=== PATIENT | female | born 1940 | race Caucasian/White ===

== ENCOUNTER 2022-02-19 00:57 | Emergency (ER) | payer MEDICARE, SELFPAY ==
[2022-02-19 01:22] VITALS: BP 150/94; PULSE 62; O2SAT 95; BMI 25.0
[2022-02-19 03:31] LABS: Ethanol 186 mg/dL
--- NOTE | 2022-02-19 03:35 | ED.ALCOHOL ---
HPI - Alcohol General Chief Complaint: ETOH/Substance Use Stated Complaint: ETOH Time Seen by Provider: 02/19/22 02:17 Source: patient Mode of arrival: EMS History of Present Illness HPI narrative: 81-year-old female without significant past medical history presents via EMS after she was at her daughter's and had a couple glasses of wine and apparently expressed some feelings of depression. She denies ever being on medication for depression, seen for or depression, admitted for depression, or hurting herself. She currently denies any symptoms vital ideation. She states that she does feel lonely as her life is little uncertain right now. Patient describes how she moved from [place] to [place] to be closer to her daughter and grandkids, but she rarely sees them anymore as there has been a separation between her daughter and her landlord. Patient states that her landlord moved away with his son and now she is alone in the house on the 1st floor with her dog and rarely sees her daughter. Patient states she does not know what her housing situation will be in the future, and when she is asked her daughter her daughter is unsure of what will be happening as well. Patient denies any current medical complaints and is interested in speaking with someone from the care team to help in identifying outpatient resources for group involvement. Related Data Allergies Allergy/AdvReac Type Severity Reaction Status Date / Time No Known Allergies Allergy Verified 02/19/22 02:19 Review of Systems Review of Systems: Pertinent positives and negatives as stated in HPI 10 point review of systems is otherwise negative. PMFSH Past Medical History Source: nursing notes reviewed Social History Social History Advance Directives: No Physical Exam ED Vital Signs: BMI result Body Mass Index 25.0 VITAL SIGNS: Reviewed. GENERAL: Well developed, well nourished, in no acute distress, smells like alcohol HEAD: Normocephalic/atraumatic EYES: PERRLA, EOMI EARS: Ext canals without abnormality OROPHARYNX: no oral lesions noted, posterior pharynx clear LUNGS: Normal breath sounds. CARDIOVASCULAR: Regular rate and rhythm without noted murmurs, no JVD or lower extremity edema. ABDOMEN: Soft, non-tender, non-distended with bowel sounds. MUSCULOSKELETAL: No tenderness, deformities, or effusions noted on gross inspection. EXTREMITIES: No cyanosis, clubbing or edema. SKIN: Inspection of the skin reveals no rashes NEUROLOGIC: Alert and oriented x 4. Strength and sensation to light touch were grossly intact x 4. PSYCH: Appears sad Course Course Course Narrative: 81-year-old female with history and clinical presentation consistent with mild depression but no suicidal ideation regarding current life situations. She is intoxicated with a BAL-186. She is requesting to speak with the care team and is otherwise cleared to do so. Reevaluation(s) Reevaluation #1: Patient placed in physician observation because the patient needed more time for evaluation by the care team. At the time observation was started the patient's vital signs were stable, patient is alert and oriented, neuro: Nonfocal, CV RRR, lungs clear Time: 03:56 MDM - Alcohol Lab Data Labs: Lab Results 02/19/22 Range/Units 03:02 Ethyl Alcohol 186 mg/dL Discharge Plan Discharge Clinical Impression: Alcoholic intoxication, Depression Patient Disposition: Still a Patient
[2022-02-19 04:00] VITALS: BP 120/57; PULSE 60; RESP 14; O2SAT 96
--- NOTE | 2022-02-19 05:06 | PC.NURSE ---
I assumed nursing care of Mona upon her arrival to [address] [place] [address]. She remains alert, oriented x 3, calm and cooperative. She is resting in [address] and ahs requested to remain in the ED until she can speak with a member of the care team. We will continue to monitor Mona.
[2022-02-19 08:57] VITALS: BP 190/83; PULSE 82; RESP 18; TEMP 36.8; O2SAT 97
[2022-02-19 10:00] VITALS: RESP 16
[2022-02-19 10:53] LABS: Appearance Urine CLEAR; Color Urine YELLOW; Glucose Urine UA NEG (NEG); Leukocyte Esterase Urine NEG (NEG); Nitrite Urine NEG (NEG); PH 5.5 (5.0-8.0); Specific Gravity - Urine >= 1.030 (1.005-1.025); UACC Culture Trigger NO; Urine Blood TRACE (NEG); Urine Ketones NEG (NEG); Urine Protein NEG (NEG-TRACE)
[2022-02-19 11:10] LABS: Bacteria Urine TRACE /LPF; RBC Urine 0-2 /HPF (0); Squamous Epithelial Cell Urine 1+ /LPF; WBC Urine 0 /HPF (0-4)
[2022-02-19 15:38] VITALS: BP 180/90; PULSE 89; RESP 17; O2SAT 97
[2022-02-19 15:39] VITALS: TEMP 36.1
--- NOTE | 2022-02-19 15:43 | PC.NURSE ---
Patient awaiting Care Team consult, spoke with Saba who will review chart and come speak with patient.
--- NOTE | 2022-02-19 16:05 | MHC.CARE ---
CARE team consult received for 81 year old female who presented to the ED early this morning endorsing symptoms of depression secondary to ongoing life stressors. She was also intoxicated with a BAL of 186. This publicity writer met with the pt in the main ED 18H. She presented with dysthymic mood and congruent affect. She denied SI/HI/AVH and reported that she feels better than she did when she arrived to the hospital, and that being in the hospital for a period of time gave her the opportunity to think about the aspects of her life that she is processing or in the process of changing. This publicity writer discussed the possibility of working with a therapist for a short period of time to support her through the transitions, which she is agreeable to. Pt is currently looking into moving back to [place], as she had moved to [place] to be closer to her daughter and it has not been what she expected and is hoping to move back to where she had previously been established. This publicity writer provided the pt with information for two counseling agencies in the [facility] area and the pt was given a business card for [facility] crisis. No further assessment or intervention is needed at this time.
--- NOTE | 2022-02-19 17:56 | PC.NURSE ---
Patient left ER around 1630, awaiting provider to close chart
== END 2022-02-19 16:30 | disposition left against medical advice (07) ==
PROVIDERS: Emergency Provider Student in an Organized Health Care Education/Training Program
DX: F10.129 Alcohol abuse with intoxication, unspecified (principal); Y90.6 Blood alcohol level of 120-199 mg/100 ml; F32.A Depression, unspecified
CPT/HCPCS: 36415; 81001; 82077; 99284

== ENCOUNTER 2022-03-07 02:44 | Emergency (ER) | payer MEDICARE, SELFPAY ==
--- NOTE | ~2022-03-07 | CT_ITS ---
EXAMINATION: CT HEAD WITHOUT CONTRAST CLINICAL INFORMATION: Confusion COMPARISON: None TECHNIQUE: Contiguous axial imaging was performed from the skull base to vertex without intravenous administration of contrast. This CT examination was performed using dose optimization techniques as appropriate, variously including the following: *Automated exposure control *Adjustment of mA and/or kV according to patient size (this includes techniques or standardized protocols for targeted exams where dose is matched to indication/reason for exam; i.e. extremities or head) *Use of iterative reconstruction technique DLP: 665 mGy-cm FINDINGS: There is no evidence of acute intracranial hemorrhage or territorial infarction. No abnormal mass effect or midline shift is seen. [place] to white matter differentiation is well preserved. No extra-axial fluid collections are identified. The ventricles are normal in size. Mild volume loss is noted. The osseous structures and soft tissues are normal. The mastoid air cells and visualized portions of the paranasal sinuses are well aerated. CT/CT head/brain wo con IMPRESSION: No acute intracranial pathology.
[2022-03-07 03:44] VITALS: BP 169/80; PULSE 95; RESP 16; O2SAT 98; BMI 25.8
--- NOTE | 2022-03-07 04:26 | ED_ITS ---
HPI - Psych General Chief Complaint: Psychiatric Symptoms Stated Complaint: ETOH/SI/SECTION 12 Time Seen by Provider: 03/07/22 04:04 Source: patient and EMS Mode of arrival: EMS History of Present Illness HPI Narrative: 81-year-old female is brought in by EMS with police department after they were called by the daughter requesting that patient be evaluated for suicidal ideation. Patient denies suicidal ideation but does endorse that she is depressed. I evaluated this patient at her last admission and she was discharged home after care team saw her. Patient does admit to being somewhat forgetful, but primarily states that her relationship with her daughter is not great and that she feels lonely most of the time. Related Data Allergies Allergy/AdvReac Type Severity Reaction Status Date / Time No Known Allergies Allergy Verified 02/19/22 02:19 Review of Systems Review of Systems: Pertinent positives and negatives as stated in HPI 10 point review of systems is otherwise negative. PMFSH Past Medical History Source: nursing notes reviewed Social History Social History Alcohol intake: current Patient Tobacco Use Status: Former Tobacco user Use of substances other than those prescribed or required for medical reasons: Unknown Advance Directives: No Advance Directives Information Provided: Yes Physical Exam Vital Signs: Vital Signs: Last Vital Signs Pulse 95 03/07/22 03:44 Resp 16 03/07/22 03:44 BP 169/80 H 03/07/22 03:44 Pulse Ox 98 03/07/22 03:44 BMI result Body Mass Index 25.8 VITAL SIGNS: Reviewed. GENERAL: Well developed, well nourished, in no acute distress. HEAD: Normocephalic/atraumatic EYES: PERRLA, EOMI EARS: Ext canals without abnormality OROPHARYNX: no oral lesions noted, posterior pharynx clear LUNGS: Normal breath sounds. No adventitious sounds or accessory muscle use. SpO2<98> CARDIOVASCULAR: Regular rate and rhythm without noted murmurs ABDOMEN: Soft, non-tender, non-distended with bowel sounds. MUSCULOSKELETAL: No tenderness, deformities, or effusions noted on gross in spection. EXTREMITIES: No cyanosis, clubbing or edema. SKIN: Inspection of the skin reveals no rashes NEUROLOGIC: Alert and oriented to President but had difficulty with month and year. Strength and sensation to light touch were grossly intact x 4. PSYCH: Depressed affect Course Course Course Narrative: 81-year-old female with history and clinical presentation suggestive of possible onset of mild dementia, although difficult to entirely assess as we have attempted multiple times to contact the daughter without success. Although patient is noted to have a positive ethanol level she articulates well, but does not remember the fact that we met approximately 2 weeks ago. She has no compla ints to suggest infection, anemia. Will obtain a CT scan of her head and discussed with the patient the reason for this, and she states that she understands. She endorses some depression but denies wanting to kill herself. She continues to states that she does not know what is going to happen in the future. Although I think the patient needs to be evaluated by the crisis team, she clearly would benefit from case management involvement to verify patient's current living conditions to include length of tenancy (patient continues to be concerned that she may not be able to live at her current address). Reevaluation(s) Reevaluation #1: Patient placed in physician observation because the patient needed more time for evaluation by the behavioral team and assistance from case management in determining daughter's primary concerns and how stable patient's current living conditions are. At the time observation was started the patient's vital signs were stable, patient is alert and oriented, neuro: Nonfocal, CV RRR, lungs clear Time: 06:42 MDM - Psych Lab Data Result diagrams: 03/07/22 05:04 03/07/22 05:02 Labs: Lab Results 03/07/22 03/07/22 03/07/22 Range/Units 05:02 05:02 05:03 WBC (4.8-10.8) X10*3/uL RBC (4.20-5.50) X10*6/uL Hgb (12.0-16.0) g/dl Hct (37.0-47.0) % MCV (80.0-98.0) fL MCH (27.0-33.0) pg MCHC (31.0-35.0) g/dl RDW (11.0-16.0) % Plt Count (160-400) X10*3/uL MPV (9.4-12.3) fL Immature Gran % (Auto) (0.0-0.4) % Neut % (Auto) (45-73) % Lymph % (Auto) (20-40) % [place] % (Auto) (2-11) % Eos % (Auto) (0-4) % Baso % (Auto) (0-2) % Lymph # (Auto) (1.2-4.9) X10*3/uL [place] # (Auto) (0.1-1.2) X10*3/uL Eos # (Auto) (0.0-0.4) X10*3/uL Baso # (Auto) (0.0-0.2) X10*3/uL Abs Immat Gran (auto) (0.00-0.03) X10*3/uL Absolute Neuts (auto) (2.0-8.3) x10*3/uL Absolute Nucleated RBC (0.0-0.012) X10*3/uL Nucleated RBC % (auto) (0.0-0.2) /100WBC Sodium 139 (135-145) mmol/L Potassium 4.0 (3.3-5.1) mmol/L Chloride 104 (96-108) mmol/L Carbon Dioxide 23 (22-29) mmol/L Anion Gap 16 (12-20) BUN 13 (9-16) mg/dL Creatinine 0.94 (0.5-1.4) mg/dL Estim Creat Clear Calc 49.5 Estimated GFR 57 Random Glucose 93 (60-115) mg/dL Calcium 9.1 (8.4-10.2) mg/dL Total Bilirubin 0.3 (0.0-1.0) mg/dL AST 21 (5-31) U/L ALT 22 (0-31) U/L Alkaline Phosphatase 84 (39-117) U/L Total Protein 7.0 (6.5-8.0) g/dL Albumin 3.8 (3.5-5.0) g/dL Urine Color Urine Appearance Urine pH (5.0-8.0) Ur Specific [place] (1.005-1.025) Urine Protein (NEG-TRACE) MG/DL Urine Glucose (UA) (NEG) MG/DL Urine Ketones (NEG) MG/DL Urine Blood (NEG) Urine Nitrite (NEG) Ur Leukocyte Esterase (NEG) Urine Opiates Screen (Not Detect) Urine Fentanyl Screen (Not Detect) Ur Barbiturates Screen (Not Detect) Ur Phencyclidine Scrn (Not Detect) Ur Amphetamines Screen (Not Detect) U Benzodiazepines Scrn (Not Detect) Urine Cocaine Screen (Not Detect) U Marijuana (THC) Screen (Not Detect) Ethyl Alcohol 165 mg/dL COVID-19 (SEVERO) Negative (Negative) COVID-19 Clin Com See Note 03/07/22 03/07/22 03/07/22 Range/Units 05:04 05:07 05:07 WBC 6.1 (4.8-10.8) X10*3/uL RBC 4.33 (4.20-5.50) X10*6/uL Hgb 13.7 (12.0-16.0) g/dl Hct 41.2 (37.0-47.0) % MCV 95.2 (80.0-98.0) fL MCH 31.6 (27.0-33.0) pg MCHC 33.3 (31.0-35.0) g/dl RDW 13.6 (11.0-16.0) % Plt Count 192 (160-400) X10*3/uL MPV 9.4 (9.4-12.3) fL Immature Gran % (Auto) 0.3 (0.0-0.4) % Neut % (Auto) 47.2 (45-73) % Lymph % (Auto) 41.0 H (20-40) % [place] % (Auto) 8.2 (2-11) % Eos % (Auto) 2.6 (0-4) % Baso % (Auto) 0.7 (0-2) % Lymph # (Auto) 2.5 (1.2-4.9) X10*3/uL [place] # (Auto) 0.5 (0.1-1.2) X10*3/uL Eos # (Auto) 0.2 (0.0-0.4) X10*3/uL Baso # (Auto) 0.0 (0.0-0.2) X10*3/uL Abs Immat Gran (auto) 0.02 (0.00-0.03) X10*3/uL Absolute Neuts (auto) 2.9 (2.0-8.3) x10*3/uL Absolute Nucleated RBC 0.000 (0.0-0.012) X10*3/uL Nucleated RBC % (auto) 0.0 (0.0-0.2) /100WBC Sodium (135-145) mmol/L Potassium (3.3-5.1) mmol/L Chloride (96-108) mmol/L Carbon Dioxide (22-29) mmol/L Anion Gap (12-20) BUN (9-16) mg/dL Creatinine (0.5-1.4) mg/dL Estim Creat Clear Calc Estimated GFR Random Glucose (60-115) mg/dL Calcium (8.4-10.2) mg/dL Total Bilirubin (0.0-1.0) mg/dL AST (5-31) U/L ALT (0-31) U/L Alkaline Phosphatase (39-117) U/L Total Protein (6.5-8.0) g/dL Albumin (3.5-5.0) g/dL Urine Color STRAW Urine Appearance CLEAR Urine pH 6.0 (5.0-8.0) Ur Specific [place] <= 1.005 (1.005-1.025) Urine Protein NEG (NEG-TRACE) MG/DL Urine Glucose (UA) NEG (NEG) MG/DL Urine Ketones NEG (NEG) MG/DL Urine Blood NEG (NEG) Urine Nitrite NEG (NEG) Ur Leukocyte Esterase NEG (NEG) Urine Opiates Screen Not Detected (Not Detect) Urine Fentanyl Screen Not Detected (Not Detect) Ur Barbiturates Screen Not Detected (Not Detect) Ur Phencyclidine Scrn Not Detected (Not Detect) Ur Amphetamines Screen Not Detected (Not Detect) U Benzodiazepines Scrn Not Detected (Not Detect) Urine Cocaine Screen Not Detected (Not Detect) U Marijuana (THC) Screen Not Detected (Not Detect) Ethyl Alcohol mg/dL COVID-19 (SEVERO) (Negative) COVID-19 Clin Com Discharge Plan Discharge Clinical Impression: Depression, Alcohol intoxication, Memory changes Patient Disposition: Still a Patient
--- NOTE | 2022-03-07 04:37 | PC.NURSE ---
Addendum entered by Priscila Kelly 03/07/22 04:43: This RN contacting Burt DOCKERY to obtain more information about the 911 call. Per Burt Phillips, daughter called 911 for pt. CFD giving this RN a different number for daughter (Shara) [phone]. This RN leaving daughter a message. aware. Original Note: This RN contacting daughter via contact information listed in chart. Daughter called multiple times but phone line constantly busy. aware.
--- NOTE | 2022-03-07 04:55 | PC.NURSE ---
I assumed nursing care of Mona upon her arrival to bed 8 after she presented via EMS and PD for evaluation of suicidal ideations, per EMS. Immediately Mona denies having suicidal ideations. She informed me that she's depressed and my daughter is the one concerned about suicide. She is reluctant to elaborate more on this with me, but insists that is not suicidal, has no plan, has never attempted suicide, and is also not homicidal. She is alert, oriented x 3, calm and cooperative. She makes eye contact with staff. She denies chest pain. She denies difficulty breathing. There is no cyanosis, respirations are non-labored, RR is WNL and room air sat's are WNL. No nausea. No vomiting. She is taking PO fluids without difficulty. On arrival Mona was changed into hospital attire and searched by security with female MHT at bedside to assist. fllowing this the female MHT remained at the bedside to provided 1:1 observation for this pt. Mona is aware that she is currently awaiting a crisis eval and verbalizes an understanding of this.
[2022-03-07 05:08] LABS: Basophils Percent Auto 0.7 % (0-2); Eosinophils Absolute Auto 0.2 X10*3/uL (0.0-0.4); Eosinophils Percent Auto 2.6 % (0-4); Hematocrit 41.2 % (37.0-47.0); Hemoglobin 13.7 g/dl (12.0-16.0); Imm Gran Abs Auto 0.02 X10*3/uL (0.00-0.03); Imm Gran Pct Auto 0.3 % (0.0-0.4); Lymphocytes Absolute Auto 2.5 X10*3/uL (1.2-4.9); MANUAL DIFF FLAG NO; Mean Corpuscular HGB Conc 33.3 g/dl (31.0-35.0); Mean Corpuscular Hemoglobin 31.6 pg (27.0-33.0); Mean Corpuscular Volume 95.2 fL (80.0-98.0); Mean Platelet Volume 9.4 fL (9.4-12.3); Monocytes Absolute Auto 0.5 X10*3/uL (0.1-1.2); Monocytes Percent Auto 8.2 % (2-11); Neutrophils Absolute Auto 2.9 x10*3/uL (2.0-8.3); Neutrophils Percent Auto 47.2 % (45-73); Platelet Count 192 X10*3/uL (160-400); Red Blood Count 4.33 X10*6/uL (4.20-5.50); Red Cell Distribution Width 13.6 % (11.0-16.0); White Blood Count 6.1 X10*3/uL (4.8-10.8)
[2022-03-07 05:13] LABS: Appearance Urine CLEAR; Color Urine STRAW; Glucose Urine UA NEG (NEG); Leukocyte Esterase Urine NEG (NEG); Nitrite Urine NEG (NEG); Specific Gravity - Urine <= 1.005 (1.005-1.025); Urine Blood NEG (NEG); Urine Ketones NEG (NEG); Urine Protein NEG (NEG-TRACE)
[2022-03-07 05:22] LABS: Ethanol 165 mg/dL
[2022-03-07 05:22] LABS: COVID-19 Test Negative (Negative)
[2022-03-07 05:26] LABS: Alanine Aminotransferase 22 U/L (0-31); Albumin Level 3.8 g/dL (3.5-5.0); Alkaline Phosphatase 84 U/L (39-117); Anion Gap 16 (12-20); Aspartate Amino Transferase 21 U/L (5-31); Bilirubin Total 0.3 mg/dL (0.0-1.0); Blood Urea Nitrogen 13 mg/dL (9-16); Calcium 9.1 mg/dL (8.4-10.2); Carbon Dioxide 23 mmol/L (22-29); Chloride 104 mmol/L (96-108); Creatinine Clr Calc Pharmacy 49.5; Estimated Glomerular Filt Rate 57; Glucose Random 93 mg/dL (60-115); Sodium 139 mmol/L (135-145)
[2022-03-07 05:29] LABS: Amphetamine Screen Urine Not Detected (Not Detect); Barbiturates, Urine Not Detected (Not Detect); Benzodiazepines Screen Urine Not Detected (Not Detect); Cannabinoid Screen Urine Not Detected (Not Detect); Cocaine Screen Urine Not Detected (Not Detect); Fentanyl, urine Not Detected (Not Detect); Opiate Screen Urine Not Detected (Not Detect); Phencyclidine Screen Urine Not Detected (Not Detect)
--- NOTE | 2022-03-07 07:47 | PC.NURSE ---
smart sheet done to [facility]
--- NOTE | 2022-03-07 07:47 | MHC.CM.ED ---
Patient currrently in ER. Received case management consult overnight. Patient also has [facility] crisis eval. Will defer to [facility] at this time. Case management will re-consult if needed.
[2022-03-07 09:47] VITALS: BP 156/75; PULSE 78; RESP 18; O2SAT 96
--- NOTE | 2022-03-07 09:53 | PC.NURSE ---
pt sleeping but easily arousable, respirations even and unlabored, reports no pain, vs stable pt states that her daughter brought her to the ed because the daughter was concern that the pt might hurt herself, pt reports that she would not hurt herself but that she is feeling sad, pt also states that she moved closer to her daughter and is not happy with her new living situation and is having some life stresses going on
--- NOTE | 2022-03-07 10:09 | PHA.MEDREC ---
Pharmacy Consult ? Medication Reconciliation Pharmacy has completed the medication reconciliation. Patient reports taking quinapril. The only medication in the claim history was quinapril-HCTZ but it was last filled in April 2021. Sandi Bhatt, AmadorD
--- NOTE | 2022-03-07 10:23 | PC.NURSE ---
sharifa from care team at bedside speaking to the pt
--- NOTE | 2022-03-07 12:08 | PC.NURSE ---
attempting to d/c the pt home but pt is unable to find her keys to the house
[2022-03-07 12:22] VITALS: BP 199/93; PULSE 71; RESP 18; O2SAT 97
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
--- NOTE | 2022-03-07 13:08 | PC.NURSE ---
spoke with izzy the granddaughter she is on her way to garbage pick up worker the pt
[2022-03-07 13:17] VITALS: BP 164/83; PULSE 72; RESP 18; TEMP 36.6; O2SAT 97
--- NOTE | 2022-03-08 15:15 | MHC.CARE ---
CARE Team makes several attempts to call pt for follow up. Phone rings busy each time.
== END 2022-03-07 13:20 | disposition home or self-care (01) ==
PROVIDERS: Emergency Provider Student in an Organized Health Care Education/Training Program
DX: R45.851 Suicidal ideations (principal); F32.A Depression, unspecified; F10.920 Alcohol use, unspecified with intoxication, uncomplicated; Y90.6 Blood alcohol level of 120-199 mg/100 ml; R41.3 Other amnesia; Z20.822 Contact with and (suspected) exposure to COVID-19
CPT/HCPCS: 36415; 70450; 80053; 80307; 81003; 82077; 85025; 87635; 99284

== ENCOUNTER 2022-04-16 13:07 | Inpatient (IN) | payer MEDICARE, SELFPAY ==
--- NOTE | ~2022-04-16 | XR_ITS ---
EXAMINATION: LEFT HAND AND LEFT WRIST. CLINICAL INFORMATION: Status post dog bite 3 days ago. COMPARISON: None TECHNIQUE: 3 views. FINDINGS: There is no soft tissue abrasion, gas or foreign body seen along the first interspace where a marker has been placed. No bony abnormality. No fracture. There is loss of first carpometacarpal joint space with periarticular spurring and subchondral cystic changes consistent with degenerative arthritis. Mild loss of PIP and DIP joints space with periapical spurring seen in all digits. No visible acute fracture or dislocation.. XR/XR hand wrist LT IMPRESSION: No evidence of soft tissue abrasion, gas or radiopaque foreign body in between the first and second digit where marker has been placed. Mild degenerative changes first carpometacarpal joint, PIP and DIP joints. .
[2022-04-16 13:29] VITALS: BP 154/67; PULSE 78; RESP 16; TEMP 36.6; O2SAT 98; BMI 28.1
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
--- NOTE | 2022-04-16 14:14 | ED.SKABFB ---
HPI - Skin/Abscess/Foreign Bdy General Chief complaint: Skin/Abscess/Foreign Body Stated complaint: dog bite Time Seen by Provider: 04/16/22 13:41 Source: patient and family Mode of arrival: ambulatory Limitations: other (Memory impairment) History of Present Illness HPI narrative: 81-year-old female who has been here in the past for alcohol intoxication, depression with SI thoughts who has a past medical history of memory impairment possible dementia although not diagnosed from a neurologist at this time and hypertension not on any medications due to daughters at bedside report her blood pressure is within normal limits presenting to the ED with daughters at bedside with complaints of a dog bite that occurred 3 days ago from 1 of her daughters dogs who is up-to-date on all immunizations. Apparently the patient was seen yesterday at an urgent care and given 1 dose of IM Rocephin and her tetanus was updated and started on p.o. Augmentin. She reports that she did not start the p.o. Augmentin until this morning due to she was given the IM Rocephin yesterday in the urgent care. They also marked the cellulitis and explained to her and the daughters that if the redness spread past the line that they have marked yesterday that she should go to emergency department for further evaluation treatment. Patient reports that the redness is spreading past the line. They deny any fevers or chills or any worsening pain or any drainage from the site or inability to bend the finger/hand where the bite is. They deny any other symptoms complaints or concerns at this time. MD complaint: other (dog bite) Onset (ago): day(s) (3) Tetanus up to date: yes Location: L hand Severity: mild Quality: aching Pain Consistency: constant Relieving factors: none Exacerbating factors: palpation and movement (bending at the 2nd and 3rd knuckles ) Context: other (daughter's dog ) Associated symptoms: denies other symptoms Treatments prior to arrival: other (was given tetanus shot yesterday, 1 g of Rocephin IM I urgent care and took 1 dose of 875 mg of Augmentin this morning) Related Data Home Medications Medication Instructions Recorded Confirmed quinapril 20 1 tab PO DAILY 03/07/22 04/16/22 mg-hydrochlorothiazide 25 mg tablet Allergies Allergy/AdvReac Type Severity Reaction Status Date / Time No Known Allergies Allergy Verified 04/16/22 13:33 Review of Systems Review of Systems: Constitutional : No Fever, No Chills, Cardiovascular : No Chest Pain, No SOB Respiratory : No Dyspnea Gastrointestinal : No abdominal pain Musculoskeletal : No Joint Swelling Skin : positive two puncture wounds + surrounding erythema to left hand, No skin laceration, No Foreign bodies, No rash Neuro : No Weakness, No Numbness/tingling Psych : No SI/HI/thoughts of self injury Yes all other systems are reviewed and are negative [facility] Past Medical History Attestation statement: The following information was validated with the patient. Source: old records reviewed, obtained from family and nursing notes reviewed Medical History Depression EtOH dependence Hypertension Memory impairment Prediabetes Family History Family History Father EtOH dependence Mother CAD (coronary artery disease) Social History Social History Alcohol intake: current Patient Tobacco Use Status: Former Tobacco user Advance Directives: Yes Advance Directives Information Provided: No Advance Directives on File: No Physical Exam Vital Signs: Vital Signs: Last Vital Signs Temp 97.8 F 04/16/22 13:29 Pulse 78 04/16/22 13:29 Resp 16 04/16/22 13:29 BP 154/67 H 04/16/22 13:29 Pulse Ox 98 04/16/22 13:29 O2 Del Method 04/16/22 13:29 BMI result Body Mass Index 28.1 vital signs have been reviewed as normal and appeared to be correct. Blood pressure 154/67. Heart rate normal. Respiration rate normal. Temperature normal. Oxygen saturation normal. Appearance: Alert. Oriented X3. No acute distress. Head: Normal external exam. Normocephalic. Atraumatic. Eyes: PERRLA. EOMI. Conjunctiva and sclera normal. Eyelids normal. ENT: Pharynx normal. Uvula midline. Moist mucous membranes. No lesions/ulcerations or masses noted on the tongue. Normal voice. Neck: Normal inspection. Neck supple. FROM. No adenopathy. No meningeal signs. CVS: Normal heart rate and rhythm. Heart sound normal. Pulses normal throughout. No murmurs/rales/gallops. Respiratory: No respiratory distress. Painless inspiration. Breath sounds normal. No wheezes/rales/rhonchi noted. No accessory muscle usage noted or decreased air movement noted. Abdomen: Soft and nontender. Bowel sounds normal in all 4 quadrants. No distention noted. No organomegaly noted. No visible injury noted. Back: Full range of motion noted. Skin: Skin warm and dry. Normal skin color. Normal skin turgor. No additional rashes/lesions/lacerations noted. Extremities: To left hand at the dorsal aspect at the mid to distal aspect of the hand patient has a puncture wound with mild soft tissue swelling and tenderness palpation right above the MCP joint. She reports pain with palpation on the MCP joint of the 2/3 digits. She does not have pain on the palmar aspect of the fingers and no tenderness palpation on the flexor tendon of the left hand fingers. Not consistent with tenosynovitis. She cannot fully flex the 2nd digit/index finger due to pain at the MCP per the patient. She does have some spreading cellulitis/streaking to the left wrist/forearm right below the joint of the elbow left-sided. No fluctuance or purulent drainage or foreign bodies noted at this time. Patient is also noted to have a puncture wound to the palmar aspect of the left hand between the 2nd and 3rd MCPs. No streaking/fluctuance or purulent drainage or foreign bodies noted at this time. Otherwise all other extremities exhibit normal range of motion nontender. Neuro: Oriented X 3. No motor deficit. No sensory deficit. Reflexes normal. Normal steady gait. No focal neuro deficits noted. CN's II-XII intact bilaterally? Vascular: + radial pulses/+ 2 distal pedal pulses/+2 dorsalis pedis b/l. Normal cap refill. No cyanosis noted to upper extremity nails and lower extremity toes nails. Course Course Course Narrative: 14pm - 81-year-old female presenting to the ED with complaints of a dog bite that occurred 3 days ago from one of her daughters dogs who is up-to-date on all immunizations patient was seen at the urgent care yesterday given 1 g of Rocephin IM her tetanus was updated and sent home on Augmentin took 1 dose of 875 mg of Augmentin this morning and due to spreading redness past the line that they marked at the urgent care yesterday patient came here for further evaluation treatment with her daughters at bedside. She denies any worsening symptoms or any fevers/chills or inability to bend the fingers or severe pain with bending of the fingers. Plan: I discussed this case with TEODORA Espinoza from [facility]opedics and [facility] vitals and pictures and she reports that this is not consistent with tenosynovitis although she reported that the patient should be admitted to the hospitalist team for a spreading cellulitis for IV antibiotics and they will consult on her on the inpatient basis. Therefore at this time will obtain labs, blood cultures, lactic acid and an x-ray of left hand. Provide a L of IV fluids with IV Zosyn and plan to admit for cellulitis of the left hand from a dog bite. Patient with family at bedside understand agree this plan. Reevaluation(s) Reevaluation #1: - labs returned ESR 25. Random glucose 162. Although patient denies being a diabetic therefore this is elevated for the patient. CRP 5.78. Otherwise all other labs are within normal limits. Patient negative for COVID. - left hand x-ray negative for any acute processes. - therefore at this time will admit for IV antibiotics for spreading cellulitis not consistent with tenosynovitis confirm with TEODORA Espinoza from Orthopedics who instructed to admit the patient for IV antibiotics and warm soaks and they will consult with the patient while she is admitted. Patient with family at bedside understand agree this plan. Time: 15:54 MDM - Skin/Abscess/Foreign Bdy Medical Records Attestation: I reviewed the patient's medical records. Lab Data Attestation: I reviewed the patient's lab results. Result diagrams: 04/16/22 14:17 04/16/22 14:17 Labs: Lab Results 04/16/22 04/16/22 04/16/22 Range/Units 14:17 14:17 14:17 WBC 7.0 (4.8-10.8) X10*3/uL RBC 4.58 (4.20-5.50) X10*6/uL Hgb 14.5 (12.0-16.0) g/dl Hct 42.7 (37.0-47.0) % MCV 93.2 (80.0-98.0) fL MCH 31.7 (27.0-33.0) pg MCHC 34.0 (31.0-35.0) g/dl RDW 12.6 (11.0-16.0) % Plt Count 188 (160-400) X10*3/uL MPV 10.0 (9.4-12.3) fL Immature Gran % (Auto) 0.4 (0.0-0.4) % Neut % (Auto) 68.0 (45-73) % Lymph % (Auto) 21.1 (20-40) % [place] % (Auto) 8.8 (2-11) % Eos % (Auto) 1.1 (0-4) % Baso % (Auto) 0.6 (0-2) % Lymph # (Auto) 1.5 (1.2-4.9) X10*3/uL [place] # (Auto) 0.6 (0.1-1.2) X10*3/uL Eos # (Auto) 0.1 (0.0-0.4) X10*3/uL Baso # (Auto) 0.0 (0.0-0.2) X10*3/uL Abs Immat Gran (auto) 0.03 (0.00-0.03) X10*3/uL Absolute Neuts (auto) 4.7 (2.0-8.3) x10*3/uL Absolute Nucleated RBC 0.000 (0.0-0.012) X10*3/uL Nucleated RBC % (auto) 0.0 (0.0-0.2) /100WBC ESR (0-20) MM/HR Sodium 138 (135-145) mmol/L Potassium 3.6 (3.3-5.1) mmol/L Chloride 104 (96-108) mmol/L Carbon Dioxide 25 (22-29) mmol/L Anion Gap 13 (12-20) BUN 14 (9-16) mg/dL Creatinine 0.93 (0.5-1.4) mg/dL Estim Creat Clear Calc 53.9 Estimated GFR 58 Random Glucose 162 H (60-115) mg/dL Estimat Average Glucose mg/dL Hemoglobin A1c % % Lactic Acid 1.1 (0.5-2.0) mmol/L Calcium 8.6 (8.4-10.2) mg/dL Magnesium 1.7 (1.6-2.6) mg/dL Total Bilirubin 0.5 (0.0-1.0) mg/dL AST 14 (5-31) U/L ALT 15 (0-31) U/L Alkaline Phosphatase 67 D (39-117) U/L C-Reactive Protein 5.87 H (< or = 0.50) mg/dL Total Protein 6.8 (6.5-8.0) g/dL Albumin 3.9 (3.5-5.0) g/dL COVID-19 ([facility]) (Negative) COVID-19 Clin Com 04/16/22 04/16/22 04/16/22 Range/Units 14:17 14:17 15:09 WBC (4.8-10.8) X10*3/uL RBC (4.20-5.50) X10*6/uL Hgb (12.0-16.0) g/dl Hct (37.0-47.0) % MCV (80.0-98.0) fL MCH (27.0-33.0) pg MCHC (31.0-35.0) g/dl RDW (11.0-16.0) % Plt Count (160-400) X10*3/uL MPV (9.4-12.3) fL Immature Gran % (Auto) (0.0-0.4) % Neut % (Auto) (45-73) % Lymph % (Auto) (20-40) % [place] % (Auto) (2-11) % Eos % (Auto) (0-4) % Baso % (Auto) (0-2) % Lymph # (Auto) (1.2-4.9) X10*3/uL [place] # (Auto) (0.1-1.2) X10*3/uL Eos # (Auto) (0.0-0.4) X10*3/uL Baso # (Auto) (0.0-0.2) X10*3/uL Abs Immat Gran (auto) (0.00-0.03) X10*3/uL Absolute Neuts (auto) (2.0-8.3) x10*3/uL Absolute Nucleated RBC (0.0-0.012) X10*3/uL Nucleated RBC % (auto) (0.0-0.2) /100WBC ESR 25 H (0-20) MM/HR Sodium (135-145) mmol/L Potassium (3.3-5.1) mmol/L Chloride (96-108) mmol/L Carbon Dioxide (22-29) mmol/L Anion Gap (12-20) BUN (9-16) mg/dL Creatinine (0.5-1.4) mg/dL Estim Creat Clear Calc Estimated GFR Random Glucose (60-115) mg/dL Estimat Average Glucose 117 mg/dL Hemoglobin A1c % 5.7 % Lactic Acid (0.5-2.0) mmol/L Calcium (8.4-10.2) mg/dL Magnesium (1.6-2.6) mg/dL Total Bilirubin (0.0-1.0) mg/dL AST (5-31) U/L ALT (0-31) U/L Alkaline Phosphatase (39-117) U/L C-Reactive Protein (< or = 0.50) mg/dL Total Protein (6.5-8.0) g/dL Albumin (3.5-5.0) g/dL COVID-19 ([facility]) Negative (Negative) COVID-19 Clin Com See Note Imaging Data Left hand/wrist x-ray: Attestation: I personally reviewed and interpreted this imaging study as follows: Radiologist's impression: FINDINGS: There is no soft tissue abrasion, gas or foreign body seen along the first interspace where a marker has been placed. No bony abnormality. No fracture. There is loss of first carpometacarpal joint space with periarticular spurring and subchondral cystic changes consistent with degenerative arthritis. Mild loss of PIP and DIP joints space with periapical spurring seen in all digits. No visible acute fracture or dislocation.. ? XR/XR hand wrist LT IMPRESSION: No evidence of soft tissue abrasion, gas or radiopaque foreign body in between the first and second digit where marker has been placed. ? Mild degenerative changes first carpometacarpal joint, PIP and DIP joints. Critical Care Time Critical Care Time Critical Care Time: Yes Total Critical Care Time: 60 Attestation: I personally attest to this time spent taking care of the patient Discharge Plan Discharge Clinical Impression: Dog bite of left hand, Cellulitis of hand, left Patient Disposition: Admitted As Inpatient
[2022-04-16 14:23] LABS: MANUAL DIFF FLAG NO
[2022-04-16 14:24] LABS: Basophils Percent Auto 0.6 % (0-2); Eosinophils Absolute Auto 0.1 X10*3/uL (0.0-0.4); Eosinophils Percent Auto 1.1 % (0-4); Hematocrit 42.7 % (37.0-47.0); Hemoglobin 14.5 g/dl (12.0-16.0); Imm Gran Abs Auto 0.03 X10*3/uL (0.00-0.03); Imm Gran Pct Auto 0.4 % (0.0-0.4); Lymphocytes Absolute Auto 1.5 X10*3/uL (1.2-4.9); Lymphocytes Percent Auto 21.1 % (20-40); Mean Corpuscular Hemoglobin 31.7 pg (27.0-33.0); Mean Corpuscular Volume 93.2 fL (80.0-98.0); Monocytes Absolute Auto 0.6 X10*3/uL (0.1-1.2); Monocytes Percent Auto 8.8 % (2-11); Neutrophils Absolute Auto 4.7 x10*3/uL (2.0-8.3); Platelet Count 188 X10*3/uL (160-400); Red Blood Count 4.58 X10*6/uL (4.20-5.50); Red Cell Distribution Width 12.6 % (11.0-16.0)
[2022-04-16] MEDS: 0.9 % Sodium Chloride 1,000 ML 999 ML IVCONT (14:28)
[2022-04-16] MEDS: Piperacillin Sodium/Tazobactam 2.25 GM in 0.9 % Sodium Chloride 50 ML IV (14:30)
[2022-04-16 14:33] LABS: Lactic Acid 1.1 mmol/L (0.5-2.0)
[2022-04-16 14:42] LABS: Alanine Aminotransferase 15 U/L (0-31); Albumin Level 3.9 g/dL (3.5-5.0); Alkaline Phosphatase 67 U/L (39-117); Anion Gap 13 (12-20); Aspartate Amino Transferase 14 U/L (5-31); Bilirubin Total 0.5 mg/dL (0.0-1.0); Blood Urea Nitrogen 14 mg/dL (9-16); Calcium 8.6 mg/dL (8.4-10.2); Carbon Dioxide 25 mmol/L (22-29); Chloride 104 mmol/L (96-108); Creatinine Clr Calc Pharmacy 53.9; Estimated Glomerular Filt Rate 58; Glucose Random 162 mg/dL (60-115); Magnesium 1.7 mg/dL (1.6-2.6); Potassium 3.6 mmol/L (3.3-5.1); Sodium 138 mmol/L (135-145); Total Protein 6.8 g/dL (6.5-8.0)
[2022-04-16 14:55] LABS: C Reactive Protein 5.87 mg/dL (< or = 0.50)
--- NOTE | 2022-04-16 15:14 | PHA.MEDREC ---
Pharmacy Consult ? Medication Reconciliation Pharmacy has completed the medication reconciliation.
[2022-04-16 15:31] LABS: Erythrocyte Sedimentation Rate 25 MM/HR (0-20)
[2022-04-16 15:35] LABS: COVID-19 Test Negative (Negative)
[2022-04-16 16:03] LABS: Estimated Average Glucose 117 mg/dL; Hemoglobin A1c % 5.7 %
--- NOTE | 2022-04-16 16:09 | PM.IMHP ---
History of Present Illness Date of Service: 04/16/22 Chief Complaint: dog bite 81-year-old female with past medical history of alcohol dependence, depression, prediabetes, presented with left upper extremity pain swelling and erythema. Patient had a dog bite 3 days prior to presentation. Dog is vaccinated. Was seen at urgent care 1 day prior to presentation and given 1 dose IM ceftriaxone and p.o. Augmentin which she did not start yet. Patient now coming to the ER for worsening swelling, erythema spreading past line drawn at urgent care, difficulty closing fist, denies fevers, chills, chest pain. In ED x-ray unremarkable, no signs of sepsis. Given IV Zosyn. was seen by Orthopedics who recommended admission for IV antibiotics and warm soaks. Review of Systems Review of Systems: Constitutional: Denies fever, denies Chills Eyes: denies blurry vision ENT: denies sore throat CVS: denies chest pain Respiratory: Denies dyspnea GI: no abdominal pain : denies dysuria MSK: denies neck pain Skin: denies rash Neuro: denies specific motor weakness Psych: denies suicidal ideation Endocrine: denies heat/cold intolerance Hematologic: denies easy bleeding Allergy: denies hives [facility] Medical History Depression EtOH dependence Hypertension Memory impairment Prediabetes Family History Father EtOH dependence Mother CAD (coronary artery disease) Social History Alcohol intake: current Patient Tobacco Use Status: Former Tobacco user Advance Directives: Yes Advance Directives Information Provided: No Advance Directives on File: No Meds Allergies Allergy/AdvReac Type Severity Reaction Status Date / Time No Known Allergies Allergy Verified 04/16/22 13:33 Active Medications: Current Medications Hydrochlorothiazide (Hydrochlorothiazide 25 Mg Tablet) 25 mg PO DAILY [facility] Ampicillin Sodium/Sulbactam (Sodium 3 gm/ Sodium Chloride) 100 mls @ 200 mls/hr IV Q8H [facility] Lisinopril (Lisinopril 20 Mg Tablet) 20 mg PO DAILY [facility] Pharmacy Consult (Consult Rx Perform Med Rec) 1 each MISCELLANE ONCE PRN PRN Reason: Consult order Home Medications Medication Instructions Recorded Confirmed Last Taken Type quinapril 20 1 tab PO DAILY 03/07/22 04/16/22 04/16/22 History mg-hydrochlorothiazide 25 mg tablet Physical Exam Vital Signs and Narrative: Vital Signs: Last Vital Signs Temp 97.8 F 04/16/22 13:29 Pulse 78 04/16/22 13:29 Resp 16 04/16/22 13:29 BP 154/67 H 04/16/22 13:29 Pulse Ox 98 04/16/22 13:29 O2 Del Method 04/16/22 13:29 BMI result Body Mass Index 28.1 General: no acute distress HEENT: atraumatic Neck: normal to visual inspection CVS: S1, S2, RRR Resp: CTA bilateral Chest: non tender GI: soft, non tender, non distended : no CVA tenderness Skin: Puncture wounds on left hand, dorsal and palmar, around 2nd and 3rd mcp area. associated swelling and erythema going up to elbow. Extremities: lue edema Neuro: Oriented X3, grossly intact Psych: cooperative Results Labs CBC and Chem 7: 04/16/22 14:17 04/16/22 14:17 Labs: Laboratory Results - last 24 hr 04/16/22 04/16/22 04/16/22 14:17 14:17 14:17 MCV 93.2 MCH 31.7 MCHC 34.0 RDW 12.6 Plt Count 188 MPV 10.0 Immature Gran % (Auto) 0.4 Neut % (Auto) 68.0 Lymph % (Auto) 21.1 [place] % (Auto) 8.8 Eos % (Auto) 1.1 Baso % (Auto) 0.6 Lymph # (Auto) 1.5 [place] # (Auto) 0.6 Eos # (Auto) 0.1 Baso # (Auto) 0.0 Abs Immat Gran (auto) 0.03 Absolute Neuts (auto) 4.7 Absolute Nucleated RBC 0.000 Nucleated RBC % (auto) 0.0 ESR Anion Gap 13 Estim Creat Clear Calc 53.9 Estimated GFR 58 Random Glucose 162 H Estimat Average Glucose Hemoglobin A1c % Lactic Acid 1.1 Calcium 8.6 Magnesium 1.7 Total Bilirubin 0.5 AST 14 ALT 15 Alkaline Phosphatase 67 D C-Reactive Protein 5.87 H Total Protein 6.8 Albumin 3.9 COVID-19 ([facility]) COVID-19 Clin Com 04/16/22 04/16/22 04/16/22 14:17 14:17 15:09 MCV MCH MCHC RDW Plt Count MPV Immature Gran % (Auto) Neut % (Auto) Lymph % (Auto) [place] % (Auto) Eos % (Auto) Baso % (Auto) Lymph # (Auto) [place] # (Auto) Eos # (Auto) Baso # (Auto) Abs Immat Gran (auto) Absolute Neuts (auto) Absolute Nucleated RBC Nucleated RBC % (auto) ESR 25 H Anion Gap Estim Creat Clear Calc Estimated GFR Random Glucose Estimat Average Glucose 117 Hemoglobin A1c % 5.7 Lactic Acid Calcium Magnesium Total Bilirubin AST ALT Alkaline Phosphatase C-Reactive Protein Total Protein Albumin COVID-19 ([facility]) Negative COVID-19 Clin Com See Note Imaging Radiologist's Impressions: Impressions Hand/Wrist X-Ray 04/16/22 14:51 IMPRESSION: No evidence of soft tissue abrasion, gas or radiopaque foreign body in between the first and second digit where marker has been placed. Mild degenerative changes first carpometacarpal joint, PIP and DIP joints. . Assessment and Plan (1) Dog bite of left hand: Status: Acute Plan 81F Presented with left hand pain and swelling left hand cellulitis due to dog bite IV Unasyn ID and Ortho eval warm soaks follow-up blood cultures hypertension continue ANTONIETTA-inhibitor and hydrochlorothiazide alcohol dependence monitor CIWA depression not on meds at this time DVT prophylaxis with Lovenox full code patient with extensive cellulitis of greater than 50% of left upper extremity, also at high risk area(hand), therefore expected to require at least 2 midnights in hospital Quality Stroke Does the patient have a stroke diagnosis?: No VTE Prior VTE?: No VTE Risk Level:: Medical - moderate - high VTE Device Contraindication: Treatment Not Indicated VTE Drug Contraindication: N/A - Med Ordered
[2022-04-16] MEDS: Enoxaparin Sodium 40 MG/0.4 ML SYRINGE SUBCUT (17:45)
[2022-04-16 19:16] VITALS: BP 173/79; PULSE 67; RESP 20; TEMP 36.6; O2SAT 98
[2022-04-16] MEDS: Ampicillin Sodium/Sulbactam Na 3 GM in 0.9 % Sodium Chloride 100 ML IV (21:36)
[2022-04-16] MEDS: 0.9 % Sodium Chloride Flush 3 ML SYRINGE IVFLUSH (23:35)
[2022-04-16 23:39] VITALS: BP 179/88; PULSE 65; RESP 17; TEMP 36.4; O2SAT 99
[2022-04-17 06:25] LABS: Hematocrit 39.6 % (37.0-47.0); Hemoglobin 13.4 g/dl (12.0-16.0); Mean Corpuscular HGB Conc 33.8 g/dl (31.0-35.0); Mean Corpuscular Hemoglobin 31.7 pg (27.0-33.0); Mean Corpuscular Volume 93.6 fL (80.0-98.0); Mean Platelet Volume 10.9 fL (9.4-12.3); Platelet Count 189 X10*3/uL (160-400); Red Blood Count 4.23 X10*6/uL (4.20-5.50); Red Cell Distribution Width 12.4 % (11.0-16.0); White Blood Count 6.9 X10*3/uL (4.8-10.8)
[2022-04-17 06:31] LABS: Anion Gap 13 (12-20); Blood Urea Nitrogen 10 mg/dL (9-16); Calcium 8.5 mg/dL (8.4-10.2); Carbon Dioxide 24 mmol/L (22-29); Chloride 108 mmol/L (96-108); Creatinine Clr Calc Pharmacy 69.6; Estimated Glomerular Filt Rate > 60; Glucose Fasting 86 mg/dL (60-99); Potassium 3.5 mmol/L (3.3-5.1); Sodium 141 mmol/L (135-145)
[2022-04-17] MEDS: Ampicillin Sodium/Sulbactam Na 3 GM in 0.9 % Sodium Chloride 100 ML IV ×3 (06:36→22:12)
[2022-04-17 07:17] VITALS: BP 151/78; PULSE 63; RESP 18; TEMP 36.4; O2SAT 98
[2022-04-17] MEDS: lisinopriL 20 MG TABLET PO (07:48)
[2022-04-17] MEDS: 0.9 % Sodium Chloride Flush 3 ML SYRINGE IVFLUSH ×3 (07:49→23:24)
[2022-04-17] MEDS: hydroCHLOROthiazide 25 MG TABLET PO (07:49)
--- NOTE | 2022-04-17 08:10 | PM.EVENT ---
Event Note Date of Service: 04/17/22 Event Note: 81 yo female with sog bit to left hand 4 days ago she was seen at urgent care and given 1g ceftriaxone with augmention po no relief so cam eto ED-admission with iv abx no pain over the palmar side of hand, no pain in thenar eminence or flexor tendons pain around the 2nd MCP , slight tenderness with axial loading. swelling over dorsum of hand into the disatl radius recommend elevate, ROM, warm water soaks and continue iv abx. recheck tomorrow.
--- NOTE | 2022-04-17 08:13 | P.CONOP_ITS ---
History of Present Illness HPI Consult date: 04/17/22 Chief complaint: dog bite, cellulitis Narrative: 81 yo female with dog bit to left hand 4 days ago she was seen at urgent care and given 1g ceftriaxone with augmention po no relief so came to ED-admission with iv abx orthopedics consulted for further recommendations Review of Systems Review of Systems: per hpi [facility] Past Medical History Medical History Depression EtOH dependence Hypertension Memory impairment Prediabetes Family History Family History Father EtOH dependence Mother CAD (coronary artery disease) Social History Social History Household Members: None Housing: Apartment Do you presently have visiting nurse or other home services: No Alcohol intake: current Patient Tobacco Use Status: Former Tobacco user Substance Use Type: Caffiene service: No Current occupational status: retired [employer] Allergies Allergy/AdvReac Type Severity Reaction Status Date / Time No Known Allergies Allergy Verified 04/16/22 13:33 Active Medications: Current Medications Acetaminophen (Acetaminophen 325 Mg Tablet) 650 mg PO Q6H PRN PRN Reason: Pain, Mild (Pain Scale 1-3) Enoxaparin Sodium (Enoxaparin Sodium 40 Mg/0.4 Ml Syringe) 40 mg SUBCUT Q24H [facility] Last Admin: 04/16/22 17:45 Dose: 40 mg Hydrochlorothiazide (Hydrochlorothiazide 25 Mg Tablet) 25 mg PO DAILY [facility] Last Admin: 04/17/22 07:49 Dose: 25 mg Ampicillin Sodium/Sulbactam (Sodium 3 gm/ Sodium Chloride) 100 mls @ 200 mls/hr IV Q8H [facility] Last Infusion: 04/17/22 07:58 Dose: Infused Lisinopril (Lisinopril 20 Mg Tablet) 20 mg PO DAILY [facility] Last Admin: 04/17/22 07:48 Dose: 20 mg Pharmacy Consult (Consult Rx Perform Med Rec) 1 each MISCELLANE ONCE PRN PRN Reason: Consult order Sodium Chloride (0.9 % Sodium Chloride Flush 3 Ml Syringe) 3 ml IVFLUSH QSHIFT [facility] Last Admin: 04/17/22 07:49 Dose: 3 ml Home Medications Medication Instructions Recorded Confirmed Last Taken Type quinapril 20 1 tab PO DAILY 05/31/22 07/10/22 07/10/22 History mg-hydrochlorothiazide 25 mg tablet Physical Exam Vital Signs: Vital Signs: Last Vital Signs Temp 97.6 F 04/17/22 07:17 Pulse 63 04/17/22 07:17 Resp 18 04/17/22 07:17 BP 151/78 H 04/17/22 07:17 Pulse Ox 98 04/17/22 07:17 O2 Del Method 04/17/22 07:17 BMI result Body Mass Index 28.1 Const: General: cooperative, healthy appearing, comfortable and no acute distress Extrem: Other: no pain over the palmar side of hand, no pain in thenar eminence or flexor tendons pain around the 2nd MCP , slight tenderness with axial loading. swelling over dorsum of hand into the disatl radius Results Labs Result Diagrams: 04/17/22 05:20 04/17/22 05:20 Labs: Abnormal lab results 04/16/22 04/16/22 Range/Units 14:17 14:17 ESR 25 H (0-20) MM/HR Random Glucose 162 H (60-115) mg/dL C-Reactive Protein 5.87 H (< or = 0.50) mg/dL H & H 04/16/22 04/17/22 Range/Units 14:17 05:20 Hgb 14.5 13.4 (12.0-16.0) g/dl Hct 42.7 39.6 (37.0-47.0) % All other labs normal. Assessment and Plan (1) Dog bite of left hand: Status: Acute (2) Cellulitis of hand, left: Status: Acute Plan No signs of abseccs for infection into the deep web spaces of the hand or flexor tendons. recommend elevate, ROM, warm water soaks and continue iv abx. recheck tomorrow. Procedures Date of Service Date of Service: 04/17/22
--- NOTE | 2022-04-17 09:36 | HO.PM.IMPN ---
Subjective Subjective Date of Service: 04/17/22 Interval History: seen and examined hand feels the same less redness but the same amount of swelling Review of Systems negative except HPI Physical Exam Vital Signs: Vital Signs: Last Vital Signs Temp 97.6 F 04/17/22 07:17 Pulse 63 04/17/22 07:17 Resp 18 04/17/22 07:17 BP 151/78 H 04/17/22 07:17 Pulse Ox 98 04/17/22 07:17 O2 Del Method 04/17/22 07:17 BMI result Body Mass Index 28.1 Const: Other: General: no acute distress HEENT:? atraumatic Neck: normal to visual inspection CVS: S1, S2, RRR Resp: CTA bilateral Chest: non tender GI: soft, non tender, non distended : no CVA tenderness Skin: ? Puncture wounds on left? hand, dorsal and palmar,? around 2nd and 3rd mcp area.? associated swelling persists, erythema improved Extremities: lue edema Neuro: Oriented X3, grossly intact Psych: cooperative Objective Data Active Medications Acetaminophen (Acetaminophen 325 Mg Tablet) 650 mg PO Q6H PRN PRN Reason: Pain, Mild (Pain Scale 1-3) Enoxaparin Sodium (Enoxaparin Sodium 40 Mg/0.4 Ml Syringe) 40 mg SUBCUT Q24H [facility] Last Admin: 04/16/22 17:45 Dose: 40 mg Documented By: NANCY Hydrochlorothiazide (Hydrochlorothiazide 25 Mg Tablet) 25 mg PO DAILY [facility] Last Admin: 04/17/22 07:49 Dose: 25 mg Documented By: KEVON Ampicillin Sodium/Sulbactam (Sodium 3 gm/ Sodium Chloride) 100 mls @ 200 mls/hr IV Q8H [facility] Last Infusion: 04/17/22 07:58 Dose: 0 mls/hr Documented By: KEVON Lisinopril (Lisinopril 20 Mg Tablet) 20 mg PO DAILY [facility] Last Admin: 04/17/22 07:48 Dose: 20 mg Documented By: KEVON Pharmacy Consult (Consult Rx Perform Med Rec) 1 each MISCELLANE ONCE PRN PRN Reason: Consult order Sodium Chloride (0.9 % Sodium Chloride Flush 3 Ml Syringe) 3 ml IVFLUSH QSHIFT [facility] Last Admin: 04/17/22 07:49 Dose: 3 ml Documented By: KEVON Labs CBC & Chem 7: 04/17/22 05:20 04/17/22 05:20 Labs: Laboratory Results - last 24 hr 04/16/22 04/16/22 04/16/22 14:17 14:17 14:17 MCV 93.2 MCH 31.7 MCHC 34.0 RDW 12.6 Plt Count 188 MPV 10.0 Immature Gran % (Auto) 0.4 Neut % (Auto) 68.0 Lymph % (Auto) 21.1 Mora % (Auto) 8.8 Eos % (Auto) 1.1 Baso % (Auto) 0.6 Lymph # (Auto) 1.5 Mora # (Auto) 0.6 Eos # (Auto) 0.1 Baso # (Auto) 0.0 Abs Immat Gran (auto) 0.03 Absolute Neuts (auto) 4.7 Absolute Nucleated RBC 0.000 Nucleated RBC % (auto) 0.0 ESR Anion Gap 13 Estim Creat Clear Calc 53.9 Estimated GFR 58 Random Glucose 162 H Fasting Glucose Estimat Average Glucose Hemoglobin A1c % Lactic Acid 1.1 Calcium 8.6 Magnesium 1.7 Total Bilirubin 0.5 AST 14 ALT 15 Alkaline Phosphatase 67 D C-Reactive Protein 5.87 H Total Protein 6.8 Albumin 3.9 COVID-19 ([facility]O) [employer] 04/16/22 04/16/22 04/16/22 14:17 14:17 15:09 MCV MCH MCHC RDW Plt Count MPV Immature Gran % (Auto) Neut % (Auto) Lymph % (Auto) Mora % (Auto) Eos % (Auto) Baso % (Auto) Lymph # (Auto) Mora # (Auto) Eos # (Auto) Baso # (Auto) Abs Immat Gran (auto) Absolute Neuts (auto) Absolute Nucleated RBC Nucleated RBC % (auto) ESR 25 H Anion Gap Estim Creat Clear Calc Estimated GFR Random Glucose Fasting Glucose Estimat Average Glucose 117 Hemoglobin A1c % 5.7 Lactic Acid Calcium Magnesium Total Bilirubin AST ALT Alkaline Phosphatase C-Reactive Protein Total Protein Albumin COVID-19 ([facility]) Negative COVID-19 Clin Com See Note 04/17/22 04/17/22 05:20 05:20 MCV 93.6 MCH 31.7 MCHC 33.8 RDW 12.4 Plt Count 189 MPV 10.9 Immature Gran % (Auto) Neut % (Auto) Lymph % (Auto) Mora % (Auto) Eos % (Auto) Baso % (Auto) Lymph # (Auto) Mora # (Auto) Eos # (Auto) Baso # (Auto) Abs Immat Gran (auto) Absolute Neuts (auto) Absolute Nucleated RBC 0.000 Nucleated RBC % (auto) 0.0 ESR Anion Gap 13 Estim Creat Clear Calc 69.6 Estimated GFR > 60 Random Glucose Fasting Glucose 86 Estimat Average Glucose Hemoglobin A1c % Lactic Acid Calcium 8.5 Magnesium Total Bilirubin AST ALT Alkaline Phosphatase C-Reactive Protein Total Protein Albumin COVID-19 ([facility]) COVID-19 Clin Com Assessment and Plan (1) Cellulitis of hand, left: Status: Acute Plan This is a 81-year-old female who presented to the hospital with left swelling and pain after dog bite. 1. Left hand cellulitis due to dog bite IV Unasyn, day 2. ID and Ortho evaluations, orthopedic input appreciated Follow-up blood cultures, negative to date 2. Hypertension Continue Chong inhibitors and hydrochlorothiazide 3. Alcohol dependence Monitor with CIWA, not in major withdrawal at this time 4. Mood On home meds, outpatient follow-up DVT prophylaxis, Lovenox Full Code Patient requires continued hospitalization due to treatment of cellulitis with IV antibiotics and a high risk area that has not improved enough for a transition to oral meds. Quality Stroke Does the patient have a stroke diagnosis?: No VTE Prior VTE?: No VTE Risk Level:: Medical - moderate - high VTE Device Contraindication: Treatment Not Indicated VTE Drug Contraindication: N/A - Med Ordered
--- NOTE | 2022-04-17 14:15 | P.CNID_ITS ---
History of Present Illness Data of Consult Service Date: 04/17/22 Requesting physician: Fran Guo Primary Care Provider: PADMINI Hitchcock HPI Reason for consult: left hand swelling,dog bite She was bit by dog four days ago to left dorsum hand. Area swelled and became more painful. She says it was her dog and up to date with shots. She received Ceftriaxone Review of Systems Review of Systems: Yes all other systems are reviewed and are negative PMFSH Past Medical History Medical History Depression EtOH dependence Hypertension Memory impairment Prediabetes Family History Family History Father EtOH dependence Mother CAD (coronary artery disease) Family history: reviewed and not pertinent Social History Social History Household Members: None Housing: Apartment Do you presently have visiting nurse or other home services: No Alcohol intake: current Patient Tobacco Use Status: Former Tobacco user Substance Use Type: Caffiene Meds Allergies Allergy/AdvReac Type Severity Reaction Status Date / Time No Known Allergies Allergy Verified 04/16/22 13:33 Active Medications: Current Medications Acetaminophen (Acetaminophen 325 Mg Tablet) 650 mg PO Q6H PRN PRN Reason: Pain, Mild (Pain Scale 1-3) Enoxaparin Sodium (Enoxaparin Sodium 40 Mg/0.4 Ml Syringe) 40 mg SUBCUT Q24H [facility] Last Admin: 04/16/22 17:45 Dose: 40 mg Hydrochlorothiazide (Hydrochlorothiazide 25 Mg Tablet) 25 mg PO DAILY [facility] Last Admin: 04/17/22 07:49 Dose: 25 mg Ampicillin Sodium/Sulbactam (Sodium 3 gm/ Sodium Chloride) 100 mls @ 200 mls/hr IV Q8H [facility] Last Infusion: 04/17/22 14:15 Dose: Infused Lisinopril (Lisinopril 20 Mg Tablet) 20 mg PO DAILY [facility] Last Admin: 04/17/22 07:48 Dose: 20 mg Pharmacy Consult (Consult Rx Perform Med Rec) 1 each MISCELLANE ONCE PRN PRN Reason: Consult order Sodium Chloride (0.9 % Sodium Chloride Flush 3 Ml Syringe) 3 ml IVFLUSH QSHIFT [facility] Last Admin: 04/17/22 07:49 Dose: 3 ml Home Medications Medication Instructions Recorded Confirmed Last Taken Type quinapril 20 1 tab PO DAILY 03/07/22 04/16/22 04/16/22 History mg-hydrochlorothiazide 25 mg tablet Physical Exam Vital Signs: Vital Signs: Last Vital Signs Temp 97.6 F 04/17/22 07:17 Pulse 63 04/17/22 07:17 Resp 18 04/17/22 07:17 BP 151/78 H 04/17/22 07:17 Pulse Ox 98 04/17/22 07:17 O2 Del Method 04/17/22 07:17 BMI result Body Mass Index 28.1 Const: General: cooperative HEENT: Head: Yes normal to inspection Face and sinus: Yes normal facial exam Mouth: Normal oral and palatal mucosa present Teeth and gingiva: dentition normal Eyes: General: appearance normal, both eyes and all related structures Pupils: Equal, round and reactive pupils present Resp: Effort & Inspection: normal respiratory effort Cardio: Rate: regular rate Rhythm: regular rhythm GI: Palpation (GI): Soft to palpation and nontender : General: Yes no CVA tenderness Back/Spine/Pelvis: Back: no CVA tenderness Skin: General skin exam: no rashes or lesions noted Neuro: General: moves all extremities Cranial nerves: Yes Equal, round and reactive pupils present Extrem: Other: right hand swollen dorsum and fang winsome limited ROM to make full fist Psych: Appearance: grossly normal Results Labs CBC & Chem 7: 04/17/22 05:20 04/17/22 05:20 Labs: Short CBC 04/16/22 04/17/22 Range/Units 14:17 05:20 WBC 7.0 6.9 (4.8-10.8) X10*3/uL Hgb 14.5 13.4 (12.0-16.0) g/dl Hct 42.7 39.6 (37.0-47.0) % Plt Count 188 189 (160-400) X10*3/uL BMP 04/16/22 04/17/22 14:17 05:20 Sodium 138 141 Potassium 3.6 3.5 Chloride 104 108 Carbon Dioxide 25 24 BUN 14 10 Creatinine 0.93 0.72 Calcium 8.6 8.5 Liver Function 04/16/22 Range/Units 14:17 Total Bilirubin 0.5 (0.0-1.0) mg/dL AST 14 (5-31) U/L ALT 15 (0-31) U/L Alkaline Phosphatase 67 D (39-117) U/L Albumin 3.9 (3.5-5.0) g/dL Assessment and Plan (1) Dog bite of left hand: Status: Acute (2) Cellulitis of hand, left: Status: Acute She has some improved range of motion. Orthopedics is seeing patient. She has possible gram negative,gram positive ,anerobes Plan Would continue ampicillin/sulbactam Continue to see Orthopedics When can make fist well and improved po Augmentin for a 10 days. Make sure has tetanus shot.
[2022-04-17 15:17] VITALS: BP 162/86; PULSE 104; RESP 18; TEMP 36.7; O2SAT 95
--- NOTE | 2022-04-17 15:26 | MHC.CM.PN ---
CM met with Patient at bedside and addressed IMM with her, providing her with the original and placing a copy on the chart. 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 Home is the goal and CM has initiated and will follow for dc planning. Patient has received Moderna/Covid vax X2 and her PCP is DR. Latrice Laguna. Patient now lives in [place], but did not reveal the address.
[2022-04-17] MEDS: Enoxaparin Sodium 40 MG/0.4 ML SYRINGE SUBCUT (17:37)
[2022-04-17 23:19] VITALS: BP 166/75; PULSE 58; RESP 17; TEMP 36.4; O2SAT 97
[2022-04-18] MEDS: Ampicillin Sodium/Sulbactam Na 3 GM in 0.9 % Sodium Chloride 100 ML IV ×3 (05:40→22:18)
--- NOTE | 2022-04-18 07:40 | PM.PNORT ---
Subjective Subjective Date of Service: 04/18/22 Interval history: day 2 dog bite left hand index finger no overnight events she is feeling better but still has pain below the mcp of the index finger on the dorsum of the hand Physical Exam Vital Signs: Vital Signs: Last Vital Signs Temp 97.5 F 04/17/22 23:19 Pulse 58 04/17/22 23:19 Resp 17 04/17/22 23:19 BP 166/75 H 04/17/22 23:19 Pulse Ox 97 04/17/22 23:19 O2 Del Method 04/17/22 23:19 BMI result Body Mass Index 28.1 Extrem: Other: no pain over the palmar side of hand, no pain in thenar eminence or flexor tendons pain around the 2nd MCP , slight tenderness with axial loading. improved swelling over dorsum of hand into the disatl radius Procedures Date of Service Date of Service: 04/18/22 Progress Note: A&P Assessment and plan (1) Cellulitis of hand, left: Status: Acute Assessment and Plan: cellulitis resolving OT for gentle ROM cont warm soaks cont to follow Time Spent With Patient Time: Total time spent is greater than 50% in coordination of care (as documented) at patient's floor/unit and/or counseling patient: Quality Stroke Does the patient have a stroke diagnosis?: No VTE Prior VTE?: No VTE Risk Level:: Medical - moderate - high VTE Device Contraindication: Treatment Not Indicated VTE Drug Contraindication: N/A - Med Ordered
[2022-04-18] MEDS: 0.9 % Sodium Chloride Flush 3 ML SYRINGE IVFLUSH ×3 (07:46→23:31)
[2022-04-18] MEDS: lisinopriL 20 MG TABLET PO (07:46)
[2022-04-18] MEDS: hydroCHLOROthiazide 25 MG TABLET PO (07:46)
[2022-04-18 08:27] VITALS: BP 135/78; PULSE 60; RESP 16; TEMP 36.1; O2SAT 97
--- NOTE | 2022-04-18 14:34 | P.PNIM_ITS ---
Subjective Subjective Date of Service: 04/18/22 Interval History: seen and examined hand feels the same less redness but the same amount of swelling Review of Systems negative except HPI Physical Exam Vital Signs: Vital Signs: Last Vital Signs Temp 97 F 04/18/22 08:27 Pulse 60 04/18/22 08:27 Resp 16 04/18/22 08:27 BP 135/78 04/18/22 08:27 Pulse Ox 97 04/18/22 08:27 O2 Del Method 04/18/22 08:27 BMI result Body Mass Index 28.1 Const: Other: General: no acute distress HEENT:? atraumatic Neck: normal to visual inspection CVS: S1, S2, RRR Resp: CTA bilateral Chest: non tender GI: soft, non tender, non distended : no CVA tenderness Skin: ? Puncture wounds on left? hand, dorsal and palmar,? around 2nd and 3rd mcp area.? associated swelling persists, erythema improved, ROM fist improved Extremities: lue edema Neuro: Oriented X3, grossly intact Psych: cooperative Objective Data Active Medications Acetaminophen (Acetaminophen 325 Mg Tablet) 650 mg PO Q6H PRN PRN Reason: Pain, Mild (Pain Scale 1-3) Enoxaparin Sodium (Enoxaparin Sodium 40 Mg/0.4 Ml Syringe) 40 mg SUBCUT Q24H [facility] Last Admin: 04/17/22 17:37 Dose: 40 mg Documented By: CASANDRA Hydrochlorothiazide (Hydrochlorothiazide 25 Mg Tablet) 25 mg PO DAILY [facility] Last Admin: 04/18/22 07:46 Dose: 25 mg Documented By: BONI Ampicillin Sodium/Sulbactam (Sodium 3 gm/ Sodium Chloride) 100 mls @ 200 mls/hr IV Q8H [facility] Last Infusion: 04/18/22 14:30 Dose: 0 mls/hr Documented By: BONI Lisinopril (Lisinopril 20 Mg Tablet) 20 mg PO DAILY [facility] Last Admin: 04/18/22 07:46 Dose: 20 mg Documented By: BONI Pharmacy Consult (Consult Rx Perform Med Rec) 1 each MISCELLANE ONCE PRN PRN Reason: Consult order Sodium Chloride (0.9 % Sodium Chloride Flush 3 Ml Syringe) 3 ml IVFLUSH QSHIFT [facility] Last Admin: 04/18/22 13:45 Dose: 3 ml Documented By: BONI Labs CBC & Chem 7: 04/17/22 05:20 04/17/22 05:20 Microbiology Microbiology Results: Microbiology 04/16/22 14:24 Blood Culture - Preliminary Blood - Venous No growth after 24 hours. 04/16/22 14:17 Blood Culture - Preliminary Blood - Venous No growth after 24 hours. Assessment and Plan (1) Cellulitis of hand, left: Status: Acute Plan This is a 81-year-old female who presented to the hospital with left swelling and pain after dog bite. 1. Left hand cellulitis due to dog bite IV Unasyn, day 3 ID and Ortho evaluations, orthopedic input appreciated Follow-up blood cultures, negative to date 2. Hypertension Continue Chong inhibitors and hydrochlorothiazide 3. Alcohol dependence Monitor with CIWA, not in major withdrawal at this time 4. Mood On home meds, outpatient follow-up DVT prophylaxis, Lovenox Full Code Patient requires continued hospitalization due to treatment of cellulitis with IV antibiotics and a high risk area that has not improved enough (still unable to make a full fist) for a transition to oral meds. Quality Stroke Does the patient have a stroke diagnosis?: No VTE Prior VTE?: No VTE Risk Level:: Medical - moderate - high VTE Device Contraindication: Treatment Not Indicated VTE Drug Contraindication: N/A - Med Ordered
[2022-04-18 15:50] VITALS: BP 141/78; PULSE 76; RESP 20; TEMP 36.1; O2SAT 96
[2022-04-18] MEDS: Enoxaparin Sodium 40 MG/0.4 ML SYRINGE SUBCUT (16:16)
[2022-04-18 23:26] VITALS: BP 160/68; PULSE 57; RESP 17; TEMP 36.3; O2SAT 99
[2022-04-19] MEDS: Ampicillin Sodium/Sulbactam Na 3 GM in 0.9 % Sodium Chloride 100 ML IV ×2 (06:00→14:18)
[2022-04-19 07:51] VITALS: BP 116/67; RESP 18; TEMP 36.5
[2022-04-19] MEDS: lisinopriL 20 MG TABLET PO (07:56)
[2022-04-19] MEDS: hydroCHLOROthiazide 25 MG TABLET PO (07:56)
[2022-04-19] MEDS: 0.9 % Sodium Chloride Flush 3 ML SYRINGE IVFLUSH (08:00)
--- NOTE | 2022-04-19 09:47 | P.DS_ITS ---
DS: Providers Provider Date of Service: 04/19/22 Date of admission: 04/16/22 16:08 Primary care physician: PADMINI Hitchcock Consults: 04/16/22 16:07 Consult to Infectious Diseases Routine Consulting Provider: Valerie Alanis Reason for consultation: dog bit Consult to Orthopedics Routine Consulting Provider: Reshma Hays Reason for consultation: dog bite DS: Diagnosis Discharge Diagnosis (1) Cellulitis of hand, left: Status: Acute (2) Hypertension: Status: Acute (3) EtOH dependence: Status: Acute DS: Summary Hospital Course Hospital Course: HPI from the admission H&P: '81-year-old female with past medical history of alcohol dependence, depression, prediabetes,? presented with left upper extremity pain swelling and erythema.? Patient had a dog bite 3 days prior to presentation.? Dog is vaccinated.? Was seen at urgent care 1 day prior to presentation and given 1 dose IM ceftriaxone and p.o. Augmentin which she did not start yet. ? Patient now coming to the ER for worsening swelling, erythema spreading past line drawn at urgent care,? difficulty closing fist, denies fevers, chills, chest pain.? In ED x-ray unremarkable, no signs of sepsis.? Given IV Zosyn. was seen by Orthopedics who recommended admission for IV antibiotics and warm soaks. Hospital Course: Patient was started on IV Unasyn for her cellulitis secondary to a dog bite. She was seen by orthopedic surgery who recommended medical treatment with IV antibiotics and no surgical intervention was recommended. Id saw the patient and agreed with IV antibiotics as well. The patient completed 3 days of IV Unasyn in the hospital. Her hand swelling, pain, erythema have nearly resolved. She is able to make a full fist and hence will be discharged on 10 more days of p.o. Augmentin. A referral to orthopedics has been given to ensure resolution. Time Spent with Patient Time attestation: Total time spent providing and/or coordinating discharge services: Discharge coordination time: Greater than 30 minutes Quality: Safe Use of Opioids Does Pt have an Active Cancer Diagnosis on the Problem List?: No Quality: Stroke Does the patient have a stroke diagnosis?: No Physical Exam Vital Signs: Vital Signs: Last Vital Signs Temp 97.7 F 04/19/22 07:51 Pulse 57 07/12/22 23:26 Resp 18 04/19/22 07:51 BP 116/67 04/19/22 07:51 Pulse Ox 99 04/18/22 23:26 O2 Del Method 04/18/22 23:26 BMI result Body Mass Index 28.1 Const: Other: General: no acute distress HEENT:? atraumatic Neck: normal to visual inspection CVS: S1, S2, RRR Resp: CTA bilateral Chest: non tender GI: soft, non tender, non distended : no CVA tenderness Skin: ? Puncture wounds on left? hand, dorsal and palmar,? around 2nd and 3rd mcp area.? swelling improved, ertyhema bascially resolved; able to make fist nearly Extremities: lue edema Neuro: Oriented X3, grossly intact Psych: cooperative DS: Data Data Completed and Pending Labs on day of discharge: Preliminary micro results at discharge 04/16/22 14:24 Blood Culture - Preliminary Blood - Venous No growth after 48 hours. 04/16/22 14:17 Blood Culture - Preliminary Blood - Venous No growth after 48 hours. Discharge Plan Discharge Patient Disposition: Home, Self-Care Discharge Diagnosis: Cellulitis Referrals: Alexis Brooks PA-C [Physician Social Sciences Department Chair] - 1 Week Latrice Laguna FNP [Primary Care Provider] - 1 Week Discharge Medications: New amoxicillin-pot clavulanate 875-125 mg tablet 1 tab PO Q12H Qty: 20 0RF Continued quinapril-hydrochlorothiazide 20-25 mg tablet 1 tab PO DAILY Discharge Orders: Discharge Order (Routine); Ordered 04/19/22 Ordered By: Fran Guo Diet: Advance to usual diet Activity on Discharge: As tolerated Stand Alone Forms: Patient Portal Discharge page Care Plan Goals: To stay healthy and out of the hospital. Health Concerns: Cellulitis Plan of Treatment: Take 10 more days of antibiotics follow up with orthopedics in 1-2 weeks if you pain, swelling, redness worsen or if you have fevers/chills or any other concerns at all, return to the ED Assessment: see d/c summary
--- NOTE | 2022-04-19 13:03 | MHC.CM.PN ---
PT MEDICALLY CLEARED FOR D/C HOME SELF-CARE, CM CONTACTED PT'S DTR JD AT 12:35 PM [phone], JD REPORTS PT WILL D/C TO HER HOME AND HAS AN APPT 04/27 TO BE EVALUATED FOR IN HOME CARE, JD REQUESTED TO SPEAK W/HOSPITSALIST SHE DID NO THINK PT WAS GOING TO BE CLEARED FOR D/C, HOSPITALIST AWARE AND WILL CALL, ANTIC PT WILL STILL D/C AND DTR WILL TRANSPORT.
[2022-04-19 15:17] VITALS: BP 133/76; PULSE 94; RESP 20; TEMP 36.1; O2SAT 99
== END 2022-04-19 16:50 | disposition home or self-care (01) | DRG 603 ==
LOC: HO.ED 14:51 → HO.EDOVER 16:13 → HO.S3 18:11
PROVIDERS: Physician Assistant Medical; Admitting Provider Internal Medicine; Emergency Provider Emergency Medicine; PCP Nurse Practitioner Family; Visit Provider Family Medicine
DX: L03.114 Cellulitis of left upper limb (principal); S61.452A Open bite of left hand, initial encounter; W54.0XXA Bitten by dog, initial encounter; F10.20 Alcohol dependence, uncomplicated; I10 Essential (primary) hypertension; F32.A Depression, unspecified; R73.03 Prediabetes; Z20.822 Contact with and (suspected) exposure to COVID-19; Z87.891 Personal history of nicotine dependence; Z79.899 Other long term (current) drug therapy
CPT/HCPCS: 36415; 73110; 73130; 80048; 80053; 83036; 83605; 83735; 85025; 85027; 85652; 86140; 87040; 87635; 96365; 97110; 97165; 97530; 99285; J0295; J1650; J2543

== ENCOUNTER 2023-08-30 19:35 | Emergency (ER) | payer MEDICARE, OTHER, SELFPAY ==
--- NOTE | ~2023-08-30 | XR_ITS ---
EXAMINATION: XR SHOULDER, LEFT CLINICAL INFORMATION: Left shoulder pain. Suspected fracture. COMPARISON: None available. TECHNIQUE: Two views of the left shoulder. FINDINGS: Moderate diffuse osteopenia. Anteroinferior medial dislocation of the left humeral head. Subtle cortical irregularity along the inferior aspect of the osseous glenoid may represent degenerative changes versus subtle nondisplaced fracture. XR/XR shoulder LT min 2V IMPRESSION: Anteroinferior medial dislocation of the left humeral head.
--- NOTE | ~2023-08-30 | CT_ITS ---
EXAMINATION: CT HEAD WITHOUT CONTRAST CLINICAL INFORMATION: Headache status-post fall. COMPARISON: CT head dated 01/05/2022. TECHNIQUE: Contiguous axial imaging was performed from the skull base to vertex without intravenous administration of contrast. Multiplanar reformatted images are submitted. This CT examination was performed using dose optimization techniques as appropriate, variously including the following: *Automated exposure control *Adjustment of mA and/or kV according to patient size (this includes techniques or standardized protocols for targeted exams where dose is matched to indication/reason for exam; i.e. extremities or head) *Use of iterative reconstruction technique DLP: 1129 mGy-cm (head and cervical spine) FINDINGS: There is no acute intracranial hemorrhage or evidence of territorial infarction. No abnormal mass effect or midline shift is seen. [place] to white matter differentiation is well preserved. There is no abnormal attenuation within the brain parenchyma. The ventricles are normal in size. There is generalized sulcal widening, commensurate with advanced age. No extra-axial fluid collections are identified. The calvarium and scalp soft tissues are normal. The middle ear cavity and mastoid air cells are clear. The visualized paranasal sinuses are clear. CT/CT cervical spine wo IV con IMPRESSION: No acute intracranial pathology. EXAMINATION: CT CERVICAL SPINE WITHOUT CONTRAST CLINICAL INFORMATION: Pain status-post fall. COMPARISON: None available. TECHNIQUE: Contiguous axial imaging was performed through the cervical spine without intravenous administration of contrast. Multiplanar reformatted images are submitted. This CT examination was performed using dose optimization techniques as appropriate, variously including the following: *Automated exposure control *Adjustment of mA and/or kV according to patient size (this includes techniques or standardized protocols for targeted exams where dose is matched to indication/reason for exam; i.e. extremities or head) *Use of iterative reconstruction technique DLP: As above FINDINGS: Vertebral body heights are normal. At C3-C4, there is moderate disc space narrowing. At C4-C5 and C5-C6, there is mild disc space narrowing. At C6-C7, there is moderately severe disc space narrowing. At C7-T1, there is a 2 mm anterolisthesis. At T1-T2, there is moderately severe disc space narrowing. No acute fracture or spondylolisthesis is seen. There is multi-level cervical spondylosis. The posterior elements are intact. There is no prevertebral soft tissue swelling. The dens is intact. The bilateral lung apices are clear. IMPRESSION: There is multi-level cervical and upper thoracic degenerative disc disease, spondylosis and facet arthropathy. Degenerative disc disease most pronounced C6-C7 and T1-T2, where it is severe. No acute fracture or spondylolisthesis is seen. Fleischner guidelines were followed.
--- NOTE | ~2023-08-30 | XR_ITS ---
EXAMINATION: XR SHOULDER, LEFT CLINICAL INFORMATION: Status post left shoulder dislocation reduction. COMPARISON: Prereduction radiograph done earlier today. TECHNIQUE: AP external rotation, Grashey, scapular Y, and axillary views of the left shoulder. FINDINGS: The glenohumeral alignment is now normal. No definite evidence of any fracture. No new abnormalities. XR/XR shoulder LT min 2V IMPRESSION: Status post reduction of the anteroinferior medial left glenohumeral joint reduction radiographs show satisfactory alignment and no definite evidence of any fracture.
[2023-08-30 19:45] VITALS: BP 152/100; PULSE 70; O2SAT 100
[2023-08-30 19:57] VITALS: BP 211/99; PULSE 79; RESP 20; TEMP 36.4; O2SAT 99; BMI 31.2
[2023-08-30 20:03] VITALS: BP 200/94; PULSE 76; RESP 18; O2SAT 100
--- NOTE | 2023-08-30 20:31 | PC.NURSE ---
md watkins ordering xrays- aware pt c/o left shoulder/arm pain. md watkins made aware bp 211/99 repeat SBP 200. no chest pain/SOB. reports 09/16 left shoulder pain. hx htn. took lisinopril 20mg as scheduled at 1000.
--- NOTE | 2023-08-30 20:47 | PC.NURSE ---
dressing abrasions r/t fall and cleansing sites per md.
--- NOTE | 2023-08-30 21:31 | ED_ITS ---
HPI - Fall General Chief Complaint: Fall Stated Complaint: MECHANICAL FALL, L SHOULDER PAIN, -THINNERS,-LOC Time Seen by Provider: 08/30/23 20:34 Source: patient Mode of arrival: EMS Limitations: no limitations History of Present Illness HPI Narrative: Patient is an 10-year-old female who presents emergency department via EMS for evaluation after mechanical fall. She was walking into her family member's home she was going up a two-step staircase she accidentally missed the 2nd step tripping and falling onto her left side. She denies any head strike or loss of consciousness. She is not on anticoagulation. Her only complaint is pain to the left shoulder that extends to the left lateral neck and the right proximal humerus. She denies numbness tingling or cold sensation to the left arm. She denies headache, dizziness, midline neck pain, vision changes, chest pain, shortness of breath, nausea vomiting, abdominal pain. Related Data Home Medications Medication Instructions Recorded Confirmed lisinopril 20 mg tablet 20 mg PO DAILY 08/30/23 08/30/23 sertraline 50 mg tablet 50 mg PO DAILY 08/30/23 08/30/23 Allergies Allergy/AdvReac Type Severity Reaction Status Date / Time No Known Allergies Allergy Verified 08/30/23 19:56 Review of Systems Review of Systems: Yes all other systems are reviewed and are negative PMFSH Past Medical History Attestation statement: The following information was validated with the patient. Source: old records reviewed Medical History Prediabetes EtOH dependence Cellulitis of hand, left Dog bite of left hand Hypertension Memory impairment Depression Family History Family History Father EtOH dependence Mother CAD (coronary artery disease) Social History Household Members: None Housing: Apartment Do you presently have visiting nurse or other home services: No Alcohol intake: current Patient Tobacco Use Status: Former Tobacco user Smoked in Last 30 Days: No Use of substances other than those prescribed or required for medical reasons: No Substance Use Type: Caffiene Advance Directives: No Advance Directives Information Provided: Yes service: No Current occupational status: retired Physical Exam Vital Signs: Vital Signs: Last Vital Signs Temp 97.5 F 08/30/23 19:57 Pulse 76 08/30/23 20:03 Resp 18 08/30/23 20:03 BP 200/94 H 08/30/23 20:03 Pulse Ox 100 08/30/23 20:03 O2 Del Method Room Air 08/30/23 20:03 BMI result Body Mass Index 31.2 Appearance: Alert.?Oriented to person, place and time. No acute distress.?Normal affect. Head: Normocephalic, atraumatic Eyes: Pupils equal, round and reactive to light.? EOMI. No nystagmus. ENT: Pharynx normal.??Dentition normal. Neck: Normal inspection.? Neck supple.??No midline cervical spine tenderness, step-offs, deformities. CVS: Heart sounds normal. Normal heart rate and rhythm.? Pulses normal.?? Respiratory: No respiratory distress.? Lung sounds clear to auscultation b ilaterally?? Abdomen: Soft and non-tender. Normoactive bowel sounds. Skin: Skin warm and dry.? Normal skin color.? Extremities: No extremity edema.? Diffuse tenderness upon palpation of the left shoulder and proximal humerus, with deformity concerning for anterior dislocation. 2+ radial pulse bilaterally. Neurovascularly intact distally. Neuro: Moves all extremities spontaneously. Sensation intact bilaterally. CN II- XII intact. No focal neuro deficits. Ambulates with normal steady gait. Course Reevaluation(s) Reevaluation #1: CT of the head is without acute intracranial pathology. CT of the cervical spine without acute fracture subluxation, no spondylolisthesis is seen, she does however have multilevel degenerative disc disease. Patient amenable to taking tramadol for pain at this time. Pending XR imaging of the left shoulder and humerus. Time: 23:03 Reevaluation #2: XR of the left shoulder was obtained which revealed anterior dislocation of the humeral head. Reviewed this imaging with Dr. Hanson who agrees, manual reduction of the joint as per procedure no of this section with success. Extremity remained neurovascularly intact distally after reduction, repeat XR obtained to confirm proper alignment. Patient was placed in a sling. We discussed outpatient follow-up with primary care provider, rest, ice, activity restriction, acetaminophen for pain, and sent prescription for tramadol to pharmacy. Discussed worrisome signs and symptoms that would warrant re- evaluation in the emergency department. All questions answered. Stable for discharge. Time: 23:45 Medications Administered Discontinued Medications Generic Name Dose Route Start Last Admin Trade Name Jaziel PRN Reason Stop Dose Admin Acetaminophen 975 mg 08/30/23 21:27 08/30/23 21:42 Acetaminophen 325 Mg Tablet PO 08/30/23 21:28 975 mg ONCE ONE Administration Tramadol HCl 50 mg 08/30/23 21:27 08/30/23 22:55 Tramadol Hcl 50 Mg Tablet PO 08/30/23 21:28 50 mg ONCE ONE Administration Procedures Orthopedic Joint Reduction Joint #1: Time Out Performed: Yes Side: left Joint Reduction Location: shoulder Analgesia: none Shoulder Technique Used (if applicable): scapula manipulation and external rotation Technique used: direct manipulation Post-reduction neuro exam: intact and no change Post Reduction X-Ray Obtained: Yes Post Reduction X-Ray Results: reduced Splint Applied: Yes (Sling) Patient Tolerated Procedure: well Medical Decision Making Medical Decision Making MDM Narrative: Patient is an 82-year-old female who presents emergency department for evaluation after a mechanical trip and fall resulting in pain to the left shoulder as per HPI physical examination portion of this note. At the time my examination she does appear uncomfortable, she is hesitant to analgesics, but agreeable to trialing acetaminophen and if not relieved will agree to trial tramadol. Given the mechanism of her injury and age will obtain CT of the head and cervical spine to exclude ICH/SDH/fracture/traumatic subluxation in addition to XR of the left shoulder and humerus for evaluation of fracture dislocation. Differential Diagnosis Differential Diagnoses: The differential diagnosis associated with the presentation includes (As per narrative above) Independent Interpretation I performed an independent interpretation of an: Plain X-Ray (I personally interpreted XR imaging, anterior dislocation of the humeral head) and CT Scan Radiology Impression Discussion of test interpretation with radiology: I have reviewed the radiologist's reading. Radiologist Impression: IMPRESSION: There is multi-level cervical and upper thoracic degenerative disc disease, spondylosis and facet arthropathy. Degenerative disc disease most pronounced C6-C7 and T1-T2, where it is severe. No acute fracture or spondylolisthesis is seen. Fleischner guidelines were followed. CT/CT head/brain wo IV con IMPRESSION: No acute intracranial pathology. XR/XR shoulder LT min 2V IMPRESSION: Anteroinferior medial dislocation of the left humeral head. Independent Historian Clinical information obtained from an independent historian. History obtained f rom or confirmed by: EMS and Other (Daughter present at bedside who confirms history) External Record Review External record reviewed: Prior outpatient labs Discharge Plan Discharge Clinical Impression: Anterior shoulder dislocation Qualifiers: Encounter type: initial encounter Laterality: left Qualified Code(s): S43.015A - Anterior dislocation of left humerus, initial encounter Fall Qualifiers: Encounter type: initial encounter Qualified Code(s): W19.XXXA - Unspecified fall, initial encounter Patient Disposition: Home, Self-Care Instructions: Shoulder Dislocation (ED), Shoulder Immobilizer (ED) Additional Instructions: Apply ice for 10-15 minutes 3-4 times daily. You can take Tylenol 500 mg, 2 tablets (1,000mg) every 4-6 hours as needed for pain, but not to exceed 3 doses daily (3,000mg).? I have sent a prescription for tramadol to the pharmacy for pain unrelieved by Tylenol. This medication may make you drowsy. Please use this medication with caution. Wear the sling at all times, take it off only to bathe. Contact your primary care provider to arrange for a follow-up visit once their office is open on Sunday. Return back to emergency department with any new or worsening symptoms or concerns. This may include but is not limited to your left shoulder/arm becoming pale or cold, inability to move the arm, redness or swelling, increased pain, weakness or numbness in the arm. Prescriptions: No Action lisinopril 20 mg tablet 20 mg PO DAILY sertraline 50 mg tablet 50 mg PO DAILY
[2023-08-30] MEDS: Acetaminophen 325 MG TABLET 975 MG PO (21:42)
[2023-08-30] MEDS: traMADoL HCL 50 MG TABLET PO (22:55)
--- NOTE | 2023-08-30 23:43 | PC.NURSE ---
Pt L shoulder reduced by provider, post XRay completed.
== END 2023-08-31 00:37 | disposition home or self-care (01) ==
PROVIDERS: Emergency Provider Emergency Medicine Emergency Medical Services; PCP Nurse Practitioner Family
DX: S43.015A Anterior dislocation of left humerus, initial encounter (principal); W17.89XA Other fall from one level to another, initial encounter; I10 Essential (primary) hypertension; Z87.891 Personal history of nicotine dependence; Y93.89 Activity, other specified; Y92.008 Other place in unspecified non-institutional (private) residence as the place of occurrence of the external cause; Y99.9 Unspecified external cause status
CPT/HCPCS: 23650; 70450; 72125; 73030; 99284

== ENCOUNTER 2024-08-23 21:57 | Emergency (ER) | payer MEDICARE, OTHER, SELFPAY ==
--- NOTE | 2024-08-23 | ECG_ITS ---
Test Reason : weakness Blood Pressure : / mmHG Vent. Rate : 077 BPM Atrial Rate : 077 BPM P-R Int : 192 ms QRS Dur : 080 ms QT Int : 370 ms P-R-T Axes : 056 -02 017 degrees QTc Int : 418 ms Sinus rhythm with Premature atrial complexes in a pattern of bigeminy Cannot rule out Anterior infarct , age undetermined Abnormal ECG No previous ECGs available Referred By: Generic ED Physician Electronically Signed By:Sylvain Ortiz
--- NOTE | ~2024-08-23 | XR_ITS ---
EXAMINATION: XR CHEST 2 VIEWS CLINICAL INFORMATION: Persistent cough. COMPARISON: None. TECHNIQUE: Frontal and lateral views of the chest were obtained. FINDINGS: The heart, great vessels, pulmonary vasculature and mediastinum are normal. There is right hilar enlargement, and there is a patchy perihilar infiltrate. There is mild elevation the right hemidiaphragm. The left lung is clear. No pleural effusion or pneumothorax is seen. There is no acute osseous abnormality. XR/XR chest 2V IMPRESSION: There is asymmetric enlargement of the right hilum, and a right perihilar infiltrate is seen, suggesting acute pneumonia. Recommend radiographic follow-up to clearance to exclude the possibility of underlying neoplasm. Should the finding persist, consider CT evaluation. Electronically signed by: Tadeo Sullivan MD 08/23/2024 11:24 PM [facility]
[2024-08-23 22:06] VITALS: BP 150/72; PULSE 82; RESP 18; TEMP 37.4; O2SAT 95; BMI 28.0
[2024-08-23 22:26] LABS: Hemoglobin 13.4 g/dl (12.0-16.0); Mean Corpuscular Volume 85.2 fL (80.0-98.0)
[2024-08-23 22:39] LABS: Alanine Aminotransferase 12 U/L (0-31); Albumin Level 3.7 g/dL (3.5-5.0); Alkaline Phosphatase 67 U/L (39-117); Anion Gap 13 (12-20); Aspartate Amino Transferase 28 U/L (5-31); Bilirubin Total 0.4 mg/dL (0.0-1.0); Blood Urea Nitrogen 13 mg/dL (9-16); Calcium 8.6 mg/dL (8.4-10.2); Carbon Dioxide 22 mmol/L (22-29); Chloride 103 mmol/L (96-108); Estimated Glomerular Filt Rate > 60; Glucose Random 94 mg/dL (60-115); Potassium 3.4 mmol/L (3.3-5.1); Sodium 135 mmol/L (135-145)
[2024-08-23 22:40] LABS: Hematocrit 38.1 % (37.0-47.0); Mean Corpuscular HGB Conc 35.2 g/dl (31.0-35.0); Mean Platelet Volume 10.2 fL (9.4-12.3); Platelet Count 184 X10*3/uL (160-400); Red Blood Count 4.47 X10*6/uL (4.20-5.50); White Blood Count 7.5 X10*3/uL (4.8-10.8)
[2024-08-23 23:00] LABS: Influenza A PCR NEGATIVE (Negative); Influenza B PCR NEGATIVE (Negative); Resp Syncy Virus RNA Qual PCR NEGATIVE (Negative); SARS COV2 PCR INHOUSE NEGATIVE (Negative)
[2024-08-23 23:07] LABS: SLIDE REVIEW MANUAL DIFF
[2024-08-23 23:14] LABS: Neutrophils Percent Manual 57 % (45-73)
[2024-08-23 23:17] LABS: Atypical Lymph Absolute Manual 0.3 x10*3/uL; Atypical Lymphs Percent Manual 4 % (0-6); Band Neutrophils Percent 18 % (3-5); Lymphocytes Absolute Manual 1.1 X10*3/uL (1.2-4.9); Lymphocytes Percent Manual 14 % (20-40); Monocytes Absolute Manual 0.5 X10*3/uL (0.1-1.2); Monocytes Percent Manual 7 % (2-11); Neutrophils Absolute Manual 5.6 X10*3/uL (2.0-8.3)
[2024-08-23 23:19] LABS: RBC Morphology NORMAL
[2024-08-23 23:20] LABS: Platelet Estimate NORMAL (NORMAL); Platelet Morphology Comment NORMAL
[2024-08-23 23:36] LABS: Lipase 17 U/L (8-78)
--- NOTE | 2024-08-23 23:36 | ED_ITS ---
HPI - General Adult General Chief complaint: General Medical Stated complaint: dementia/vomiting/deep cough Time Seen by Provider: 08/23/24 23:21 Source: patient and family Mode of arrival: wheelchair Limitations: no limitations History of Present Illness ED Provider: Dr. Hallie Anderson HPI narrative: Patient comes to the emergency room complaining cough. Patient states that 5 days ago patient got her flu shot. A few hours after her shot, patient started coughing, developing nausea, 1 episode of diarrhea. Since then, patient has been coughing quite a bit. According to the patient's family, the patient has had chills, subjective fever. Patient states that she feels well but admits that she has been coughing quite a bit. Patient has history of dementia history is not quite reliable. According to the family, patient has had decreased p.o. intake, more weakness. Patient recently discontinued/finish taking her course of antibiotics for a UTI. Related Data Home Medications ?Medication ?Instructions ?Recorded ?Confirmed lisinopril 20 mg tablet 20 mg PO DAILY 08/30/23 08/30/23 sertraline 50 mg tablet 50 mg PO DAILY 08/30/23 08/30/23 Previous Rx's ?Medication ?Instructions ?Recorded tramadol 50 mg tablet 50 mg PO Q8H PRN pain #10 tabs 08/31/23 azithromycin 250 mg tablet 250 mg PO DAILY 4 days #4 tabs 08/24/24 cefuroxime axetil 500 mg tablet 500 mg PO BID #3 tabs 08/24/24 Allergies Allergy/AdvReac Type Severity Reaction Status Date / Time lisinopril AdvReac Angioedema Verified 08/23/24 22:08 Review of Systems 2 Review of Systems: Constitutional : No Weight loss complaining of subjective fever and complaining of chills, No Night Sweats, No Fatigue, No Malaise, per family seems a bit weak ENT/Mouth : No Hearing loss, No Ear Pain, No Nasal Congestion, No Sinus Pain, No Hoarseness, No sore throat, No Rhinorrhea, No Swallowing Difficulty Eyes: No Eye Pain, No Swelling, No Redness, No Foreign Body, No Discharge, No Vision Changes Cardiovascular : No Chest Pain, No SOB, No Dyspnea on Exertion, No Orthopnea, No Edema, No Palpitations Respiratory : Complaining of cough, no wheezing, no shortness of breath Gastrointestinal : No Nausea, No Vomiting, No Diarrhea, No Constipation, No abdominal Pain, No Hematochezia, No Melena Genitourinary : no irregular bleeding, No Dysuria, No Urinary Frequency, No Hematuria, No Urinary Incontinence, No Urgency, No Flank Pain, No Urinary Flow Changes, No Hesitancy Musculoskeletal : No joint pain, No Myalgias, No Joint Swelling Skin : No Skin Lesions, No rash Neuro : No Weakness, No Numbness, No Paresthesias, No Loss of Consciousness, No Dizziness, No Headache Psych : No Anxiety/Panic, No Depression, No SI/HI/AH/VH, No Social Issues, Heme/Lymph: No Bruising, No Bleeding,No Lymphadenopathy Endocrine : No Polyuria, No Polydipsia, No Temperature Intolerance [facility] Past Medical History Medical History Prediabetes EtOH dependence Cellulitis of hand, left Dog bite of left hand Hypertension Memory impairment Depression Family History Family History Father EtOH dependence Mother CAD (coronary artery disease) Social History Social History Household Members: None Housing: Apartment Do you presently have visiting nurse or other home services: No Alcohol intake: current Patient Tobacco Use Status: Former Tobacco user Substance Use Type: Caffiene service: No Current occupational status: retired Physical Exam ED Vital Signs: Vital Signs - 24 hr 08/23/24 22:06 Temperature 99.4 F Pulse Rate 82 Respiratory Rate 18 Blood Pressure 150/72 H Pulse Oximetry 95 Oxygen Delivery Method Room Air BMI result Body Mass Index 28.0 Const Other: Appearance: Alert. Oriented X2. No acute distress. Eyes: Pupils equal, round and reactive to light. ENT: Pharynx normal. Neck: Normal inspection. Neck supple. No lymph nodes noted. No crepitus CVS: Normal heart rate and rhythm. Pulses normal. Normal S1 and S2 Respiratory: Complaining of coughing Abdomen: Soft and nontender. No rigidity. No distention. Skin: Skin warm and dry. Normal skin color. Normal skin turgor. Extremities: No lower extremity edema. No Lacerations. No Rash Neuro: Oriented X 2. No motor deficit. No sensory deficit. Moving all extremities. No slurred speech. CN 2 through 12 grossly intact Psych: calm, cooperative, normal affect Medical Decision Making Medical Decision Making [facility] Narrative: My interpretation of labs: Patient's white blood cell count normal. However, patient's shows 18% bands. Chemistry within normal limits, LFTs normal. Serology negative for influenza RSV and COVID. -at rest, patient's oxygen at saturation is 95-97%. When patient walks, he went up to 100%, patient not wheezing, not having any chest pain or shortness of breath. Patient ambulates with normal paste feeling well, unassisted. -patient was given the 1st dose of antibiotics in the emergency room, cefuroxime and azithromycin. -patient and her family feel comfortable going home. They will need close follow-up with their PCP. Differential Diagnosis Differential Diagnoses: The differential diagnosis associated with the presentation includes (Viral bronchitis, pneumonia, COVID, RSV, influenza) Lab Data [facility] Lab Attestation statement: I reviewed the patient's lab results. 08/23/24 22:18 08/23/24 22:18 Labs: Lab Results 08/23/24 Range/Units 22:18 WBC 7.5 (4.8-10.8) X10*3/uL RBC 4.47 (4.20-5.50) X10*6/uL Hgb 13.4 (12.0-16.0) g/dl Hct 38.1 (37.0-47.0) % MCV 85.2 (80.0-98.0) fL MCH 30.0 (27.0-33.0) pg MCHC 35.2 H (31.0-35.0) g/dl RDW 13.0 (11.0-16.0) % Plt Count 184 (160-400) X10*3/uL MPV 10.2 (9.4-12.3) fL Immature Gran % (Auto) Cancelled Neut % (Auto) Cancelled Lymph % (Auto) Cancelled [place] % (Auto) Cancelled Eos % (Auto) Cancelled Baso % (Auto) Cancelled Lymph # (Auto) Cancelled [place] # (Auto) Cancelled Eos # (Auto) Cancelled Baso # (Auto) Cancelled Abs Immat Gran (auto) Cancelled Absolute Neuts (auto) Cancelled Absolute Nucleated RBC 0.000 (0.0-0.012) X10*3/uL Nucleated RBC % (auto) 0.0 (0.0-0.2) /100WBC Neutrophils % (Manual) 57 (45-73) % Band Neutrophils % 18 H (3-5) % Lymphocytes % (Manual) 14 L (20-40) % Atypical Lymphs % (Man) 4 (0-6) % Monocytes % (Manual) 7 (2-11) % Abs Neuts (Manual) 5.6 (2.0-8.3) X10*3/uL Lymphocytes # (Manual) 1.1 L (1.2-4.9) X10*3/uL Atyp Lymphs # (Manual) 0.3 x10*3/uL Monocytes # (Manual) 0.5 (0.1-1.2) X10*3/uL Platelet Estimate NORMAL (NORMAL) Plt Morphology Comment NORMAL RBC Morphology NORMAL Smear Tech's Comments MANUAL DIFF Sodium 135 (135-145) mmol/L Potassium 3.4 (3.3-5.1) mmol/L Chloride 103 (96-108) mmol/L Carbon Dioxide 22 (22-29) mmol/L Anion Gap 13 (12-20) BUN 13 (9-16) mg/dL Creatinine 0.78 (0.5-1.4) mg/dL Estim Creat Clear Calc 62.0 Estimated GFR > 60 Random Glucose 94 (60-115) mg/dL Calcium 8.6 (8.4-10.2) mg/dL Total Bilirubin 0.4 (0.0-1.0) mg/dL AST 28 (5-31) U/L ALT 12 (0-31) U/L Alkaline Phosphatase 67 (39-117) U/L Total Protein 7.0 (6.5-8.0) g/dL Albumin 3.7 (3.5-5.0) g/dL Lipase 17 (8-78) U/L Influenza Type A (PCR) NEGATIVE (Negative) Influenza Type B (PCR) NEGATIVE (Negative) RSV RNA Qual (PCR) NEGATIVE (Negative) SARS-CoV-2 RNA (RT-PCR) NEGATIVE (Negative) Discharge Plan Discharge Clinical Impression: Pneumonia Patient Disposition: Home, Self-Care Instructions: Pneumonia (ED) Additional Instructions: Please follow-up with your primary care physician tomorrow. If you have any worsening or new symptoms, please return to the emergency room or call 911 Prescriptions: New cefuroxime axetil 500 mg tablet 500 mg PO BID Qty: 3 0RF azithromycin 250 mg tablet 250 mg PO DAILY 4 Days Qty: 4 0RF Rx Instructions: start on day 2 of therapy No Action lisinopril 20 mg tablet 20 mg PO DAILY sertraline 50 mg tablet 50 mg PO DAILY tramadol 50 mg tablet 50 mg PO Q8H PRN (Reason: pain) Qty: 10 0RF Print Language: Estonian
[2024-08-24 00:32] LABS: Ethanol < 10 mg/dL
[2024-08-24 00:35] LABS: Amphetamine Screen Urine Not Detected (Not Detect); Barbiturates, Urine Not Detected (Not Detect); Benzodiazepines Screen Urine Not Detected (Not Detect); Buprenorphine Scr Not Detected (Not Detect); Cannabinoid Screen Urine Not Detected (Not Detect); Cocaine Screen Urine Not Detected (Not Detect); Fentanyl, urine Not Detected (Not Detect); Methadone Screen, Urine Not Detected (Not Detect); Opiate Screen Urine Not Detected (Not Detect); Oxycodone Screen Urine Not Detected (Not Detect); Phencyclidine Screen Urine Not Detected (Not Detect)
[2024-08-24 00:49] VITALS: BP 148/69; PULSE 73; RESP 16; TEMP 37.4; O2SAT 95
[2024-08-24] MEDS: Benzonatate 100 MG CAPSULE PO (01:00)
[2024-08-24] MEDS: Azithromycin 500 MG TABLET PO (01:00)
[2024-08-24] MEDS: cefuroxime axetiL 500 MG TABLET PO (01:00)
[2024-08-24 01:10] LABS: Appearance Urine Clear; Color Urine Yellow; Glucose Urine UA Negative (Negative); Leukocyte Esterase Urine Negative (Negative); Nitrite Urine Negative (Negative); UMIC TRIGGER UACC YES; Urine Blood Trace (Negative); Urine Ketones Negative (Negative); Urine Protein Negative (Neg-Trace)
[2024-08-24 01:13] LABS: Bacteria Urine None Seen (None Seen); Hyaline Casts Urine 0-2 /LPF (0-2); RBC Urine 0-2 /HPF (0-2); Squamous Epithelial Cell Urine 0-2 /HPF (0-2); WBC Urine 0-5 /HPF (0-5)
[2024-08-24 01:33] VITALS: BP 155/71; PULSE 69; RESP 16; TEMP 37.2; O2SAT 96; O2SAT 97
--- OUTSIDE RECORDS SUMMARY | 2024-08-29 12:25 | XMS_ITS | Continuity of Care Document ---
Author Organization [facility] Adult Address [address] [place] [address]- Care Team Providers Care Client Services Manager Name Role Phone Jase LEE, Latrice Champagne Primary Care Physician [place] [facility] [place] 08/02/[address] [address]- Attending Physician: Joel Saavedra Admitting Physician: Joel Saavedra Referring Physician: Joel Saavedra Allergies, Adverse Reactions, Alerts Substance Reaction Severity Status lisinopril Angioedema Severe Active Immunizations Given and Recorded Vaccine Date Status Refusal Reason tetanus/diphtheria/pertussis, acel(Tdap) 12/10/23 Recorded tetanus-diphtheria toxoids (Td) 04/15/22 Recorded SARS-CoV-2 (COVID-19) mRNA-1273 vaccine 02/13/21 R ecorded SARS-CoV-2 (COVID-19) mRNA-1273 vaccine 01/16/21 R ecorded pneumococcal 13-valent vaccine 1 07/10/19 Given 1Result Comment: [facility]: [id number] Medications calcium and vitamin D combination 500 mg-200 iu oral tablet 1 tablet, By Mouth, 2 times a day, # 180 tablet, 2 Refills, Maintenance, 07/14/22 11:17:00 EDT, Toni, [id number], Partial fill upon patient request if the prescription is for a schedule II opioid drug., 1 tablet By Mouth 2 times a day, 17... Start Date: 07/14/22 Status: Ordered Cane See Instructions, # 1 each, Maintenance, Cane- Dx Unseady gait, 12/04/22 14:09:00 EST, Supply Start Date: 12/04/22 Status: Ordered cetirizine 10 mg oral tablet = 10 mg, By Mouth, Daily, # 2 tablet, 0 Refills, Maintenance, 04/10/24 11:58:00 EDT, Tablet, [facility]/pharmacy #[id number], Partial fill upon patient request if the prescription is for a schedule II opioid drug., 170, cm, 04/10/24 10:44:00 EDT, Height, 77, kg, 0... Start Date: 04/10/24 Stop Date: 04/12/24 Status: Ordered losartan 25 mg oral tablet 1 tablet = 25 mg, By Mouth, Daily, # 30 tablet, 0 Refills, Maintenance, 04/10/24 11:58:00 EDT, Tablet, [facility]/pharmacy #[id number], Partial fill upon patient request if the prescription is for a schedule II opioid drug., 170, cm, 04/10/24 10:44:00 EDT, Height,... Start Date: 04/10/24 Stop Date: 05/10/24 Status: Ordered PARoxetine 10 mg oral tablet 10 mg, 1, tablet, By Mouth, Daily, # 90 tablet, Refills 0, Tot. Refills 0, Maintenance, 12/24/23 16:44:00 EDT, Route to Pharmacy Electronically, [facility] 1966, Partial fill upon patient request if the prescription is for a schedule II opioid d... 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 History of fracture of right ankle Confirmed Active Hyperlipidemia Confirmed Active HTN (hypertension) Confirmed Active Cognitive impairment Confirmed Active Impaired fasting glucose Confirmed Active Insomnia Confirmed Active Major depression Confirmed Active Left knee DJD Confirmed Active Prediabetes Confirmed Active MDD (major depressive disorder), recurrent episode, mild Confirmed Active Social History Social History Type Response Smoking Status Former smoker, quit more than 30 days ago entered on: 12/30/20 Sex Female Laboratory * Event Display: Non BH Lab Results Authored Date: Patient Care team information Care Team Personnel Name: Landy Hernández LPN Position: [facility] RN Member Role: Primary Care Nurse Name: Catracho Jimenez RN Position: [facility] RN Member Role: Primary Care Nurse Name: Saba Gilbert Position: [facility] MA Peach Grower Member Role: Rubber Stamp Dies Inspector Name: Danika Wilkerson RN Position: [facility] RN Member Role: Primary Care Nurse Name: Latrice Laguna NP Position: [facility] PCO Associate Professional Member Role: PCP Address: Address: [address] [place] [id number] Care Team Related Persons Name: JD MARROQUIN
--- OUTSIDE RECORDS SUMMARY | 2024-08-29 12:25 | XMS_ITS | Continuity of Care Document ---
Author Organization [facility] Adult Address [address] [place] [address]- Care Team Providers Care Clerical Office Name Role Phone Jase MILK COLLECTOR, Latrice Champagne Primary Care Physician [phone] Encounter [facility] [place] Date(s): 01/05/23 - 02/04/23 [facility] [address] [place] [address]- Attending Physician: Joel Saavedra Admitting Physician: Joel Saavedra Referring Physician: AdmJoel vigil Allergies, Adverse Reactions, Alerts No Known Allergies Immunizations Given and Recorded Vaccine Date Status Refusal Reason tetanus-diphtheria toxoids (Td) 04/15/22 Recorded SARS-CoV-2 (COVID-19) mRNA-1273 vaccine 02/13/21 R ecorded SARS-CoV-2 (COVID-19) mRNA-1273 vaccine 01/16/21 R ecorded pneumococcal 13-valent vaccine 1 07/10/19 Given 1Result Comment: [facility]: [id number] Medications atorvastatin 20 mg oral tablet 1 tablet = 20 mg, By Mouth, Daily at bedtime, # 90 tablet, 4 Refills, Maintenance, 06/01/22 11:51:00 EDT, Tablet, [facility], 170, cm, 06/01/22 11:50:00 EDT, Height, 74, kg, 02/04/22 5:20:00 EDT, Dry Weight Start Date: 06/01/22 Status: Ordered calcium and vitamin D combination 500 mg-200 iu oral tablet 1 tablet, By Mouth, 2 times a day, # 180 tablet, 2 Refills, Maintenance, 07/14/22 11:17:00 EDT, Tablet, [facility]278, Partial fill upon patient request if the prescription is for a schedule II opioid drug., 1 tablet By Mouth 2 times a day, 17... Start Date: 07/14/22 Status: Ordered Cane See Instructions, # 1 each, Maintenance, Cane- Dx Unseady gait, 12/04/22 14:09:00 EST, Supply Start Date: 12/04/22 Status: Ordered hydrochlorothiazide 50 mg oral tablet 50 mg, 1, tablet, By Mouth, Daily, # 90 tablet, Refills 2, Tot. Refills 2, Maintenance, 12/04/22 14:07:00 EST, Route to Pharmacy Electronically, [facility], Partial fill upon patient request if the prescription is for a schedule II opioid d... Start Date: 12/04/22 Status: Ordered quinapril 20 mg oral tablet 1 tablet = 20 mg, By Mouth, Daily, # 90 tablet, 3 Refills, Maintenance, 06/15/22 15:27:00 EDT, Tablet, [facility], Partial fill upon patient request if the prescription is for a schedule II opioid drug., 170, cm, 06/05/22 14:12:00 EDT, Heig... Start Date: 06/15/22 Status: Ordered sertraline 50 mg oral tablet 1 tablet = 50 mg, By Mouth, Daily, # 90 tablet, 2 Refills, Maintenance, 07/14/22 11:26:00 EDT, Tablet, [facility]278, Partial fill upon patient request if the prescription is for a schedule II opioid drug., 170, cm, 07/14/22 10:53:00 EDT, Heig... Start Date: 07/14/22 Status: Ordered Problem List Condition Confirmation Course [...] days ago entered on: 12/30/20 Sex Female Note * Event Display: Non Lab Results Authored Date: Patient Care team information Care Team Personnel Name: Latrice Laguna NP Position: S PCO Associate Professional Member Role: PCP Address: Address: [address] [place] [address]- Care Team Related Persons Name: JD MRAROQUIN Address: home [address] [place] [address]
--- OUTSIDE RECORDS SUMMARY | 2024-08-29 12:25 | XMS_ITS | Continuity of Care Document ---
Author Organization [facility] Address [address] [place] [address]- Care Team Providers Care [place] Name Role Phone Latrice Laguna NP Primary Care Physician [phone] Encounter [facility] [place] Date(s): 12/30/20 - 01/06/21 [facility] [address] [place] [address]- Encounter Diagnosis Medicare annual wellness visit, subsequent(Discharge Diagnosis) - 12/30/20 HTN (hypertension)(Discharge Diagnosis) - 12/30/20 Hyperlipidemia(Discharge Diagnosis) - 12/30/20 History of fracture of right ankle(Discharge Diagnosis) - 12/30/20 Obesity (BMI 30-39.9)(Discharge Diagnosis) - 12/30/20 Prediabetes(Discharge Diagnosis) - 12/30/20 Attending Physician: Latrice Laguna NP Allergies, Adverse Reactions, Alerts Substance Reaction Severity Status NKA Active Immunizations Given and Recorded Vaccine Date Status Refusal Reason pneumococcal 13-valent vaccine 1 07/10/19 Given 1Result Comment: [facility]: [id number] Medications atorvastatin 20 mg oral tablet 1 tablet = 20 mg, By Mouth, Daily at bedtime, # 90 tablet, 4 Refills, Maintenance, 12/30/20 10:23:00 EDT, Tablet, [id number], 165, cm, 12/30/20 10:18:00 EDT, Height Start Date: 12/30/20 Status: Ordered calcium and vitamin D combination 500 mg-200 iu oral tablet 1 tablet, By Mouth, 2 times a day, # 60 tablet, 0 Refills, Maintenance, 05/01/18 12:56:40 EDT, Tablet Start Date: 05/01/18 Status: Ordered hydrochlorothiazide-quinapril 20 mg-25 mg oral tablet 1 tablet, By Mouth, Daily, # 90 tablet, 3 Refills, Maintenance, 05/01/21 15:00:00 EDT, Tablet, [facility] #[id number], 1 tablet By Mouth Daily,x90 days, 165, cm, 12/30/20 10:18:00 EDT, Height Start Date: 05/01/21 Stop Date: 04/26/22 Status: Ordered hydrochlorothiazide-quinapril 20 mg-25 mg oral tablet 1 tablet, By Mouth, Daily, for 90 days, # 90 tablet, 1 Refills, Hard Stop 05/01/21 15:00:00 EDT, 11/02/20 15:00:00 EST, Tablet, [id number], 165, cm, 06/24/20 9:51:00 EDT, Height Start Date: 11/02/20 Stop Date: 05/01/21 Status: Ordered Knee Support See Instructions, # 1 units, Maintenance, Wear, 07/10/19 11:57:29 EDT, Compound Start Date: 07/10/19 Status: Ordered Problem List Condition Effective Dates Status Health Status Inform ant Obesity (BMI 30-39.9)(Confirmed) Active Chronic pain of right ankle(Confirmed) Active History of total replacement of right ankle(Confirmed) Active History of fracture of right ankle(Confirmed) Active Hyperlipidemia(Confirmed) Active HTN (hypertension)(Confirmed) Active Impaired fasting glucose(Confirmed) Active Left knee DJD(Confirmed) Active Prediabetes(Confirmed) Active Diagnosis Diagnosis Type Effective Dates Health Status Clinical Service Informant Medicare annual wellness visit, subsequent Discharge Diagnosis 12/30/20 HTN (hypertension) Discharge Diagnosis 12/30/20 Hyperlipidemia Discharge Diagnosis 12/30/20 History of fracture of right ankle Discharge Diagnosis 12/30/20 Obesity (BMI 30-39.9) Discharge Diagnosis 12/30/20 Prediabetes Discharge Diagnosis 12/30/20 Vital Signs Most recent to oldest [Reference Range]: 1 2 3 Height 165 cm (12/30/20 10:18 AM) 165 cm (12/30/20 9:44 AM) 165 cm (12/30/20 9:37 AM) Weight 93.6 kg (12/30/20 9:37 AM) Oxygen Saturation [94-100 %] 98 % (12/30/20 9:37 AM) Pulse Rate [55-90 bpm] 86 bpm (12/30/20 9:37 AM) Body Mass Index [18.5-24.99] 34.38 *>HHI* (12/30/20 9:37 AM) Blood Pressure [90-138/55-84 mm Hg] 136/74mm Hg (12/30/20 10:18 AM) 130/70mm Hg (12/30/20 9:44 AM) 142/80mm Hg *H* (12/30/20 9:37 AM) Respiratory Rate [16-30 br/min] 16 br/min (12/30/20 9:37 AM) Mode of Delivery (Oxygen) Room air (12/30/20 9:37 AM) Blood pressure sites Arm, left (12/30/20 10:18 AM) Arm, right (12/30/20 9:44 AM) Arm, left (12/30/20 9:37 AM) Weight Obtained Via Standing scale (12/30/20 9:37 AM) Social History Social History Type Response Smoking Status Former smoker, quit more than 30 days ago entered on: 12/30/20 Sex
--- OUTSIDE RECORDS SUMMARY | 2024-08-29 12:25 | XMS_ITS | Continuity of Care Document ---
Author Organization [facility] Adult Address [address] [place] [address]- Care Team Providers Care Zipper Trimmer Hand Name Role Phone Jase LEE, Latrice Champagne Primary Care Physician Encounter [facility] Date(s): 03/25/20 - 07/23/20 [facility] Adult [address] [place] [id number]- [facility] Attending Physician: Not on Staff, Attending MD Allergies, Adverse Reactions, Alerts Substance Reaction Severity Status NKA Active Immunizations Given and Recorded Vaccine Date Status Refusal Reason pneumococcal 13-valent vaccine 1 07/10/19 Given 1Result Comment: [facility]: [id number] Medications atorvastatin 20 mg oral tablet 1 tablet = 20 mg, By Mouth, Daily at bedtime, # 90 tablet, 1 Refills, Maintenance, 04/29/20 11:55:00 EDT, Tablet, [id number], 165, cm, 12/22/19 15:48:00 EDT, Height Start Date: 04/29/20 Status: Ordered calcium and vitamin D combination 500 mg-200 iu oral tablet 1 tablet, By Mouth, 2 times a day, # 60 tablet, 0 Refills, Maintenance, 05/01/18 12:56:40 EDT, Tablet Start Date: 05/01/18 Status: Ordered hydrochlorothiazide-quinapril 20 mg-25 mg oral tablet 1 tablet, By Mouth, Daily, # 90 tablet, 1 Refills, Maintenance, 05/13/20 9:50:00 EDT, Tablet, [id number], 1 tablet By Mouth Daily, 165, cm, 12/22/19 15:48:00 EDT, Height Start Date: 05/13/20 Status: Ordered Knee Support See Instructions, # [...] Active Left knee DJD(Confirmed) Active Prediabetes(Confirmed) Active Social History Social History Type Response Smoking Status Never smoker entered on: 05/01/18 Sex
--- OUTSIDE RECORDS SUMMARY | 2024-08-29 12:25 | XMS_ITS | Continuity of Care Document ---
Author Organization [facility] Adult Address [address] [place] [address]- Care Team Providers Care Signs And Displays Sales Representative Name Role Phone Jase MANAGER SPANISH, Latrice Champagne Primary Care Physician En[place] [facility] [place] Date(s): 09/10/23 - 10/10/23 [facility] [address] [place] [address]- Attending Physician: Joel Saavedra Admitting Physician: Joel Saavedra Referring Physician: Joel Saavedra Allergies, Adverse Reactions, Alerts No Known Allergies Immunizations Given and Recorded Vaccine Date Status Refusal Reason tetanus-diphtheria toxoids (Td) 04/15/22 Recorded SARS-CoV-2 (COVID-19) mRNA-1273 vaccine 02/13/21 R ecorded SARS-CoV-2 (COVID-19) mRNA-1273 vaccine 01/16/21 R ecorded pneumococcal 13-valent vaccine 1 07/10/19 Given 1Result Comment: [facility]: [id number] Medications atorvastatin 20 mg oral tablet 1 tablet = 20 mg, By Mouth, Daily at bedtime, # 90 tablet, 4 Refills, Maintenance, 06/01/22 11:51:00 EDT, Tablet, [facility], 170, cm, 06/01/22 11:50:00 EDT, Height, 74, kg, 02/04/22 5:20:00 EDT, Dry Weight Start Date: 06/01/22 Status: Ordered calcium and vitamin D combination 500 mg-200 iu oral tablet 1 tablet, By Mouth, 2 times a day, # 180 tablet, 2 Refills, Maintenance, 07/14/22 11:17:00 EDT, Tablet, [facility], Partial fill upon patient [...] 12/04/22 14:07:00 EST, Route to Pharmacy Electronically, [facility], Partial fill upon patient request if the prescription is for a schedule II opioid d... Start Date: 12/04/22 Status: Ordered lisinopril 20 mg oral tablet 1, tablet, By Mouth, Daily, # 90 tablet, Refills 0, Tot. Refills 0, Maintenance, 07/04/23 8:18:00 EDT, Route to Pharmacy Electronically, [facility], 170, cm, 12/04/22 14:06:00 EST, Height,74, kg, 02/04/22 5:20:00 EDT, Dry Weight Start Date: 07/04/23 Status: Ordered sertraline 50 mg oral tablet 1 tablet = 50 mg, By Mouth, Daily, # 90 tablet, 2 Refills, Maintenance, 07/14/22 11:26:00 EDT, Tablet, [facility], Partial fill upon patient [...] Sex Female Laboratory * Event Display: Non Lab Results Authored Date: Patient Care team information Care Team Personnel Name: Latrice Laguna NP Position: S PCO Associate Professional Member Role: PCP Address: Address: [address] [place] [address]- Care Team Related Persons Name: JD MARROQUIN Address: home [address] [place] [address]
--- OUTSIDE RECORDS SUMMARY | 2024-08-29 12:25 | XMS_ITS | Continuity of Care Document ---
Author Organization [facility] Address [address] [place] [address]- Care Team Providers Care Die Casting Machine Maintainer Name Role Phone Jase POLYMERIZATION OVEN TENDER, Latrice Champagne Primary Care Physician [phone] [id number] Date(s): 12/28/22 - 01/27/[address] [address] Attending Physician: Joel Saavedra Admitting Physician: Joel Saavedra Referring Physician: AdmtrJoel Allergies, Adverse Reactions, Alerts No Known Allergies Immunizations Given and Recorded Vaccine Date Status Refusal Reason tetanus-diphtheria toxoids (Td) 04/15/22 Recorded SARS-CoV-2 (COVID-19) mRNA-1273 vaccine 02/13/21 R ecorded SARS-CoV-2 (COVID-19) mRNA-1273 vaccine 01/16/21 R ecorded pneumococcal 13-valent vaccine 1 07/10/19 Given 1Result Comment: [facility]: [id number] Medications atorvastatin 20 mg oral tablet 1 tablet = 20 mg, By Mouth, Daily at bedtime, # 90 tablet, 4 Refills, Maintenance, 06/01/22 11:51:00 EDT, Tablet, [facility], 170, cm, 06/01/22 11:50:00 EDT, Height, 74, kg, 02/04/22 5:20:00 EDT, Dry Weight Start Date: 06/01/22 Status: Ordered calcium and vitamin D combination 500 mg-200 iu oral tablet 1 tablet, By Mouth, 2 times a day, # 180 tablet, 2 Refills, Maintenance, 07/14/22 11:17:00 EDT, Tablet, [facility], Partial fill upon patient request [...] 14:07:00 EST, Route to Pharmacy Electronically, [facility], Partial fill upon patient request if the prescription is for a schedule II opioid d... Start Date: 12/04/22 Status: Ordered quinapril 20 mg oral tablet 1 tablet = 20 mg, By Mouth, Daily, # 90 tablet, 3 Refills, Maintenance, 06/15/22 15:27:00 EDT, Tablet, [facility], Partial fill upon patient request if the prescription is for a schedule II opioid drug., 170, cm, 06/05/22 14:12:00 EDT, Heig... Start Date: 06/15/22 Status: Ordered sertraline 50 mg oral tablet 1 tablet = 50 mg, By Mouth, Daily, # 90 tablet, 2 Refills, Maintenance, 07/14/22 11:26:00 EDT, Tablet, [facility], Partial fill upon patient request [...] days ago entered on: 12/30/20 Sex Female Patient Care team information Care Team Personnel Name: Latrice Laguna NP Position: [facility] PCO Associate Professional Member Role: PCP Address: Address: [address] [place] [address] [address] [place] [address]- Care Team Related Persons Name: JD MARROQUIN Address: home [address] [place] [address]
--- OUTSIDE RECORDS SUMMARY | 2024-08-29 12:25 | XMS_ITS | Continuity of Care Document ---
Author Organization [facility] Adult Address [address] [place] [address]- Care Team Providers Care Collision Mechanic Name Role Phone Jase LEE, Latrice Champagne Primary Care Physician [id number] Date(s): 06/01/22 - 06/08/[address] [address]- Encounter Diagnosis Major depression(Discharge Diagnosis) - 06/01/22 Insomnia(Discharge Diagnosis) - 06/01/22 Cognitive impairment(Discharge Diagnosis) - 06/01/22 HTN (hypertension)(Discharge Diagnosis) - 06/01/22 Hyperlipidemia(Discharge Diagnosis) - 06/01/22 Attending Physician: Not on Staff, Attending MD Allergies, Adverse Reactions, Alerts No Known Allergies Immunizations Given and Recorded Vaccine Date Status Refusal Reason tetanus-diphtheria toxoids (Td) 04/15/22 Recorded SARS-CoV-2 (COVID-19) mRNA-1273 vaccine 02/13/21 R ecorded SARS-CoV-2 (COVID-19) mRNA-1273 vaccine 01/16/21 R ecorded pneumococcal 13-valent vaccine 1 07/10/19 Given 1Result Comment: [facility]: [id number] Medications atorvastatin 20 mg oral tablet 1 tablet = 20 mg, By Mouth, Daily at bedtime, # 90 tablet, 4 Refills, Maintenance, 06/01/22 11:51:00 EDT, Tablet, [facility], 170, cm, 06/01/22 11:50:00 EDT, [...] Daily, # 90 tablet, 3 Refills, Maintenance, 04/21/23 15:00:00 EDT, Tablet, [facility], 1 tablet By Mouth Daily,x90 days, 170, cm, 06/01/22 11:50:00 EDT, Height, 74, kg,02/04/22 5:20:00 EDT, Dry Weight Start Date: 04/21/23 Stop Date: 04/15/24 Status: Ordered hydrochlorothiazide-quinapril 20 mg-25 mg oral tablet 1 tablet, By Mouth, Daily, for 90 days, # 90 tablet, 3 Refills, Hard Stop 04/21/23 15:00:00 EDT, 04/26/22 15:00:00 EDT, Tablet, [id number], 165, cm, 02/02/22 15:00:00 EDT, Height Start Date: 04/26/22 Stop Date: 04/21/23 Status: Ordered sertraline 25 mg oral tablet 1 tablet = 25 mg, By Mouth, Daily, # 90 tablet, 0 Refills, Maintenance, 06/01/22 11:50:00 EDT, Tablet, [facility], Partial fill upon patient request if the prescription is for a schedule II opioid drug., 170, cm, 06/01/22 11:50:00 EDT, Heig... Start Date: 06/01/22 Status: Ordered traZODone 50 mg oral tablet 25 mg, 0.5, tablet, By Mouth, Daily at bedtime, PRN, # 15 tablet, Refills 0, Tot. Refills 0, Maintenance, Insomnia, 06/01/22 11:51:00 EDT, Route to Pharmacy Electronically, [facility], Partial fill upon patient request if the prescription i... Start Date: 06/01/22 Status: Ordered Problem List Condition Effective Dates Status Health Status Inform ant Alcohol abuse(Confirmed) Active Memory loss(Confirmed) Active Obesity (BMI 30-39.9)(Confirmed) Active Chronic pain of right ankle(Confirmed) Active Alcohol use(Confirmed) Active History of total replacement of right ankle(Confirmed) Active History of fracture of right ankle(Confirmed) Active Hyperlipidemia(Confirmed) Active HTN (hypertension)(Confirmed) Active Cognitive impairment(Confirmed) Active Impaired fasting glucose(Confirmed) Active Insomnia(Confirmed) Active Major depression(Confirmed) Active Left knee DJD(Confirmed) Active Prediabetes(Confirmed) Active Diagnosis Diagnosis Type Effective Dates Health Status Clinical Service Informant Major depression Discharge Diagnosis 06/01/22 Insomnia Discharge Diagnosis 06/01/22 Cognitive impairment Discharge Diagnosis 06/01/22 HTN (hypertension) Discharge Diagnosis 06/01/22 Hyperlipidemia Discharge Diagnosis 06/01/22 Vital Signs Most recent to oldest [Reference Range]: 1 2 3 Height 170 cm (06/01/22 11:50 AM) 170 cm (06/01/22 11:09 AM) 170 cm (06/01/22 11:00 AM) Weight 83.0 kg (06/01/22 11:00 AM) Oxygen Saturation [94-100 %] 98 % (06/01/22 11:00 AM) Pulse Rate [55-90 bpm] 41 bpm *L* (06/01/22 11:00 AM) Body Mass Index [18.5-24.99] 28.72 *H* (06/01/22 11:00 AM) Blood Pressure [90-138/55-84 mm Hg] 160/90mm Hg *H* (06/01/22 11:50 AM) 177/105mm Hg *H* (06/01/22 11:09 AM) 186/89mm Hg *H* (06/01/22 11:00 AM) Mode of Delivery (Oxygen) Room air (06/01/22 11:00 AM) Blood pressure sites Arm, left (06/01/22 11:50 AM) Arm, left (06/01/22 11:09 AM) Arm, left (06/01/22 11:00 AM) Weight Obtained Via Standing scale (06/01/22 11:00 AM) Social History Social History Type Response Smoking Status Former smoker, quit more than 30 days ago entered on: 12/30/20 Sex Female Care Team Personnel Name: Latrice Laguna NP Address: [address] [place] [address] [address] [place] [address]
--- OUTSIDE RECORDS SUMMARY | 2024-08-29 12:25 | XMS_ITS | Continuity of Care Document ---
Author Organization [facility] Adult Address [address] [place] [address]- Care Team Providers Care Hrbp Name Role Phone Jase TRUCKER HAND, Latrice Champagne Primary Care Physician [phone] Encounter [facility] Date(s): 12/14/23 - 01/13/[address] [address] Allergies, Adverse Reactions, Alerts No Known Allergies Immunizations Given and Recorded Vaccine Date Status Refusal Reason tetanus/diphtheria/pertussis, acel(Tdap) 12/10/23 Recorded tetanus-diphtheria toxoids (Td) 04/15/22 Recorded SARS-CoV-2 (COVID-19) mRNA-1273 vaccine 02/13/21 R ecorded SARS-CoV-2 (COVID-19) mRNA-1273 vaccine 01/16/21 R ecorded pneumococcal 13-valent vaccine 1 07/10/19 Given 1Result Comment: [facility]: [id number] Medications calcium and vitamin D combination 500 mg-200 iu oral tablet 1 tablet, By Mouth, 2 times a day, # 180 tablet, 2 Refills, Maintenance, 07/14/22 11:17:00 EDT, Tablet, [id number], Partial fill upon patient request if the prescription is for a schedule II opioid drug., 1 tablet By Mouth 2 times a day, 17... Start Date: 07/14/22 Status: Ordered Cane See Instructions, # 1 each, Maintenance, Cane- Dx Unseady gait, 12/04/22 14:09:00 EST, Supply Start Date: 12/04/22 Status: Ordered losartan 25 mg oral tablet 1 tablet = 25 mg, By Mouth, Daily, # 90 tablet, 0 Refills, Maintenance, 12/24/23 16:40:00 EDT, Tablet, [facility] 1966, Partial fill upon patient request if the prescription is for a schedule II opioid drug., 169, cm, 12/24/23 16:10:00 EDT, He.. Start Date: 12/24/23 Status: Ordered PARoxetine 10 mg oral tablet 10 mg, 1, tablet, By Mouth, Daily, # 90 tablet, Refills 0, Tot. Refills 0, Maintenance, 12/24/23 16:44:00 EDT, Route to Pharmacy Electronically, [facility] 1966, Partial fill upon patient request [...] Insomnia Confirmed Active Major depression Confirmed Active Obese class I Confirmed Active Left knee DJD Confirmed Active Prediabetes Confirmed Active MDD (major depressive disorder), recurrent episode, mild Confirmed Active Social History Social History Type Response Smoking Status Former smoker, quit more than 30 days ago entered on: 12/30/20 Sex Female Patient Care team information Care Team Personnel Name: Landy Hernández LPN Position: [facility] RN Member Role: Primary Care Nurse Name: Saba Gilbert Position: [facility] [place] Applications Consultant Member Role: Travelers' Aid Worker Name: Danika Wilkerson RN Position: [facility] RN Member Role: Primary Care Nurse Name: Latrice Laguna NP Position: [facility] PCO Associate Professional Member Role: PCP Address: Address: [address] [place] [address] [address] [place] [address]- Care Team Related Persons Name: JD MARROQUIN
--- OUTSIDE RECORDS SUMMARY | 2024-08-29 12:25 | XMS_ITS | Continuity of Care Document ---
Author Organization [facility] Adult Address [address] [place] [address]- Care Team Providers Care Lean Manufacturing Engineer Name Role Phone Jase LEE, Latrice Champagne Primary Care Physician [id number] Date(s): 01/02/22 - 02/04/22 [facility] Adult [address] [place] [address]- Attending Physician: Latrice Laguna NP Allergies, Adverse Reactions, Alerts No Known Allergies Immunizations Given and Recorded Vaccine Date Status Refusal Reason SARS-CoV-2 (COVID-19) mRNA-1273 vaccine 02/13/21 R ecorded SARS-CoV-2 (COVID-19) mRNA-1273 vaccine 01/16/21 R ecorded pneumococcal 13-valent vaccine 1 07/10/19 Given 1Result Comment: [facility]: [id number] Medications atorvastatin 20 mg oral tablet 1 tablet = 20 mg, By Mouth, Daily at bedtime, # 90 tablet, 4 Refills, Maintenance, 02/02/22 15:02:00 EDT, Tablet, [id number], 165, cm, 02/02/22 15:00:00 EDT, Height Start Date: 02/02/22 Status: Ordered calcium and vitamin D combination 500 mg-200 iu oral tablet 1 tablet, By Mouth, 2 times a day, # 60 tablet, 0 Refills, Maintenance, 05/01/18 12:56:40 EDT, Tablet Start Date: 05/01/18 Status: Ordered escitalopram 10 mg oral tablet 1 tablet = 10 mg, By Mouth, Daily, # 90 tablet, 0 Refills, Maintenance, 02/02/22 15:03:00 EDT, Tablet, [id number], Partial fill upon patient request if the prescription is for a schedule II opioid drug., 165, cm, 02/02/22 15:00:00 EDT... Start Date: 02/02/22 Status: Ordered hydrochlorothiazide-quinapril 20 mg-25 mg oral tablet 1 tablet, By Mouth, Daily, for 90 days, # 90 tablet, 3 Refills, Hard Stop 04/26/22 15:00:00 EDT, 05/01/21 15:00:00 EDT, Tablet, [id number], 165, cm, 12/30/20 10:18:00 EDT, Height Start Date: 05/01/21 Stop Date: 04/26/22 Status: Ordered hydrochlorothiazide-quinapril 20 mg-25 mg oral tablet 1 tablet, By Mouth, Daily, # 90 tablet, 3 Refills, Maintenance, 04/26/22 15:00:00 EDT, Tablet, [email or web address] #[id number], 1 tablet By Mouth Daily,x90 days, 165, cm, 02/02/22 15:00:00 EDT, Height Start Date: 04/26/22 Stop Date: 04/21/23 Status: Ordered Problem List Condition Effective Dates [...]
--- OUTSIDE RECORDS SUMMARY | 2024-08-29 12:25 | XMS_ITS | Continuity of Care Document ---
Author Organization [facility] Adult Address [address] [place] [address]- Care Team Providers Care Associate Business Analyst Name Role Phone Jase BENCH PRECISION ASSEMBLER, Latrice Champagne Primary Care Physician [phone] [id number] Date(s): 11/30/22 - 12/30/[address] [address]- Allergies, Adverse Reactions, Alerts No Known Allergies Immunizations Given and Recorded Vaccine Date Status Refusal Reason tetanus-diphtheria toxoids (Td) 04/15/22 Recorded SARS-CoV-2 (COVID-19) mRNA-1273 vaccine 02/13/21 R ecorded SARS-CoV-2 (COVID-19) mRNA-1273 vaccine 01/16/21 R ecorded pneumococcal 13-valent vaccine 1 07/10/19 Given 1Result Comment: [facility]: [id number] Medications atorvastatin 20 mg oral tablet 1 tablet = 20 mg, By Mouth, Daily at bedtime, # 90 tablet, 4 Refills, Maintenance, 06/01/22 11:51:00 EDT, Tablet, [id number], 170, cm, 06/01/22 11:50:00 EDT, Height, 74, kg, 02/04/22 5:20:00 EDT, Dry Weight Start Date: 06/01/22 Status: Ordered calcium and vitamin D combination 500 mg-200 iu oral tablet 1 tablet, By Mouth, 2 times a day, # 180 tablet, 2 Refills, Maintenance, 07/14/22 11:17:00 EDT, Tablet, [facility], Partial fill upon patient request [...] 12/04/22 14:07:00 EST, Route to Pharmacy Electronically, [facility], Partial fill upon patient request if the prescription is for a schedule II opioid d... Start Date: 12/04/22 Status: Ordered quinapril 20 mg oral tablet 1 tablet = 20 mg, By Mouth, Daily, # 90 tablet, 3 Refills, Maintenance, 06/15/22 15:27:00 EDT, Tablet, [facility], Partial fill upon patient request if the prescription is for a schedule II opioid drug., 170, cm, 06/05/22 14:12:00 EDT, Heig... Start Date: 06/15/22 Status: Ordered sertraline 50 mg oral tablet 1 tablet = 50 mg, By Mouth, Daily, # 90 tablet, 2 Refills, Maintenance, 07/14/22 11:26:00 EDT, Tablet, [facility], Partial fill upon patient [...] more than 30 days ago entered on: 3/25/21 Sex Female Patient Care team information Care Team Personnel Name: Latrice Laguna NP Position: S PCO Associate Professional Member Role: PCP Address: Address: [address] [place] [address] [address] [place] [address]- Care Team Related Persons Name: JD MARROQUIN Address: home [address] [place] [address]
--- OUTSIDE RECORDS SUMMARY | 2024-08-29 12:25 | XMS_ITS | Continuity of Care Document ---
Author Organization [facility] Adult Address [address] [place] [address]- Care Team Providers Care National Accounts Recruiter Name Role Phone Jase FAMILY LIVING EDUCATOR, Latrice Champagne Primary Care Physician [facility] [id number] Date(s): 08/12/20 - 09/16/20 [facility] Adult [address] [place] [address]- Attending Physician: Rashawn Dorsey MD Allergies, Adverse Reactions, Alerts Substance Reaction Severity Status NKA Active Immunizations Given and Recorded Vaccine Date Status Refusal Reason pneumococcal 13-valent vaccine 1 07/10/19 Given 1Result Comment: [facility]: [id number] Medications atorvastatin 20 mg oral tablet 1 [...]
--- OUTSIDE RECORDS SUMMARY | 2024-08-29 12:25 | XMS_ITS | Continuity of Care Document ---
Author Organization [facility] Adult Address [address] [place] [address]- Care Team Providers Care Motorboat Mechanic Inboard/Outboard Name Role Phone Jase STREET FLUSHER DRIVER, Latrice Champagne Primary Care Physician [phone] [id number] Date(s): 10/07/22 - 02/04/[address] [address]- Attending Physician: Not on Staff, Attending MD Allergies, Adverse Reactions, Alerts No Known Allergies Immunizations Given and Recorded Vaccine Date Status Refusal Reason tetanus-diphtheria toxoids (Td) 04/15/22 Recorded SARS-CoV-2 (COVID-19) mRNA-1273 vaccine 02/13/21 R ecorded SARS-CoV-2 (COVID-19) mRNA-1273 vaccine 01/16/21 R ecorded pneumococcal 13-valent vaccine 1 07/10/19 Given 1Result Comment: [facility]: [id number] Medications atorvastatin 20 mg oral tablet 1 tablet = 20 mg, By Mouth, Daily at bedtime, # 90 tablet, 4 Refills, Maintenance, 06/01/22 11:51:00 EDT, Tablet, [facility], 170, cm, 06/01/22 11:50:00 EDT, Height, 74, kg, 02/04/22 5:20:00 EDT, Dry Weight Start Date: 06/01/22 Status: Ordered calcium and vitamin D combination 500 mg-200 iu oral tablet 1 tablet, By Mouth, 2 times a day, # 180 tablet, 2 Refills, Maintenance, 07/14/22 11:17:00 EDT, Tablet, [facility], Partial fill upon patient request [...] 12/04/22 14:07:00 EST, Route to Pharmacy Electronically, [facility], Partial fill upon patient request if the prescription is for a schedule II opioid d... Start Date: 12/04/22 Status: Ordered quinapril 20 mg oral tablet 1 tablet = 20 mg, By Mouth, Daily, # 90 tablet, 3 Refills, Maintenance, 06/15/22 15:27:00 EDT, Tablet, [facility], Partial fill upon patient request if the prescription is for a schedule II opioid drug., 170, cm, 06/05/22 14:12:00 EDT, Heig... Start Date: 06/15/22 Status: Ordered sertraline 50 mg oral tablet 1 tablet = 50 mg, By Mouth, Daily, # 90 tablet, 2 Refills, Maintenance, 07/14/22 11:26:00 EDT, Tablet, [facility], Partial fill upon patient request [...] Team Personnel Name: Latrice Laguna NP Position: [facility] PCO Associate Professional Member Role: PCP Address: Address: [address] [place] [address] [address] [place] [address]- Care Team Related Persons Name: JD MARROQUIN Address: home [address] [place] [address]
--- OUTSIDE RECORDS SUMMARY | 2024-08-29 12:25 | XMS_ITS | Continuity of Care Document ---
Author Organization [facility] Adult Address [address] [place] [address]- Care Team Providers Care Mental Health Therapist Name Role Phone Jase COOK HELPER PRESERVES, Latrice Champagne Primary Care Physician Encounter [facility] Date(s): 04/11/24 - 05/11/[address] [address] Allergies, Adverse Reactions, Alerts Substance Reaction Severity Status lisinopril Angioedema Severe Active Immunizations Given and Recorded Vaccine Date Status Refusal Reason tetanus/diphtheria/pertussis, acel(Tdap) 12/10/23 Recorded tetanus-diphtheria toxoids (Td) 04/15/22 Recorded SARS-CoV-2 (COVID-19) mRNA-1273 vaccine 02/13/21 R ecorded SARS-CoV-2 (COVID-19) mRNA-1273 vaccine 01/16/21 R ecorded pneumococcal 13-valent vaccine 1 07/10/19 Given 1Result Comment: [facility]: [id number] Medications calcium and vitamin D combination 500 mg-200 iu oral tablet 1 tablet, By Mouth, 2 times a day, # 180 tablet, 2 Refills, Maintenance, 07/14/22 11:17:00 EDT, Tablet, [facility], Partial fill upon patient [...] 0 Refills, Maintenance, 04/10/24 11:58:00 EDT, Tablet, [id number], Partial fill upon patient request if the prescription is for a schedule II opioid drug., 170, cm, 04/10/24 10:44:00 EDT, Height, 77, kg, 0... Start Date: 04/10/24 Stop Date: 04/12/24 Status: Ordered losartan 25 mg oral tablet 1 tablet = 25 mg, By Mouth, Daily, # 30 tablet, 0 Refills, Maintenance, 04/10/24 11:58:00 EDT, Tablet, [id number], Partial fill upon patient request if the prescription is for a schedule II opioid drug., 170, cm, 04/10/24 10:44:00 EDT, Height,... Start Date: 04/10/24 Stop Date: 05/10/24 Status: Ordered PARoxetine 10 mg oral tablet 10 mg, 1, tablet, By Mouth, Daily, # 90 tablet, Refills 0, Tot. Refills 0, Maintenance, 12/24/23 16:44:00 EDT, Route to Pharmacy Electronically, [facility] 1966, Partial fill upon patient [...] Team Personnel Name: Landy Hernández LPN Position: S RN Member Role: Primary Care Nurse Name: Catracho Jimenez RN Position: S RN Member Role: Primary Care Nurse Name: Saba Gilbert Position: [facility] [place] Streets And Buildings Decorator Member Role: Wood Grinder Name: Danika Wilkerson RN Position: [facility] RN Member Role: Primary Care Nurse Name: Latrice Laguna NP Position: [facility] PCO Associate Professional Member Role: PCP Address: Address: [address] [place] [address]- Care Team Related Persons Name: JD MARROQUIN
--- OUTSIDE RECORDS SUMMARY | 2024-08-29 12:25 | XMS_ITS | Continuity of Care Document ---
Author Organization [facility] ter Address [address] [place] [id number]- Care Team Providers Care Hand Flatwork Finisher Name Role Phone Jase LEE, Latrice Champagne Primary Care Physician [phone] [place] [facility] [place]): [place]23 - 12/08/[address] [id number] Encounter Diagnosis Neglected elder(Final) - 12/02/23 Dementia(Final) - 12/02/23 Discharge Disposition: A-D/C Home Attending Physician: Roro Chiu MD Admitting Physician: Jasen Dan MD Referring Physician: Not on Staff, Referring MD Allergies, Adverse Reactions, Alerts No Known Allergies Immunizations Given and Recorded Vaccine Date Status Refusal Reason tetanus-diphtheria toxoids (Td) 04/15/22 Recorded SARS-CoV-2 (COVID-19) mRNA-1273 vaccine 02/13/21 R ecorded SARS-CoV-2 (COVID-19) mRNA-1273 vaccine 01/16/21 R ecorded pneumococcal 13-valent vaccine 1 07/10/19 Given 1Result Comment: [facility]: [id number] Medications calcium and vitamin D combination 500 mg-200 iu oral tablet 1 tablet, By Mouth, 2 times a day, # 180 tablet, 2 Refills, Maintenance, 07/14/22 11:17:00 EDT, Tablet, [id number], Partial fill upon patient request if the prescription is for a schedule II opioid drug., 1 tablet By Mouth 2 times a day, 17... Start Date: 07/14/22 Status: Ordered Cane See Instructions, # 1 each, Maintenance, Cane- Dx Unseady gait, 12/04/22 14:09:00 EST, Supply Start Date: 12/04/22 Status: Ordered Problem List Condition Confirmation Course [...] depressive disorder), recurrent episode, mild Confirmed Active Vital Signs Most recent to oldest [Reference Range]: 1 2 3 Height 169 cm (12/08/23 1:43 PM) 169 cm (12/08/23 5:57 AM) 169 cm (12/08/23 5:56 AM) Weight 83.3 kg (12/04/23 7:48 PM) Oxygen Saturation [94-100 %] 100 % (12/08/23 1:43 PM) 94 % (12/08/23 5:57 AM) 98 % (12/08/23 5:56 AM) Pulse Rate [55-90 bpm] 56 bpm (12/08/23 1:43 PM) 65 bpm (12/08/23 5:57 AM) 53 bpm *L* (12/08/23 5:56 AM) Body Mass Index [18.5-24.99 kg/m2] 29.17 kg/m2 *H* (12/04/23 7:48 PM) Blood Pressure [90-138/55-84 mm Hg] 116/64mm Hg (12/08/23 1:43 PM) 109/62mm Hg (12/08/23 5:57 AM) 126/55mm Hg (12/08/23 5:56 AM) Respiratory Rate [16-30 br/min] 16 br/min (12/08/23 1:43 PM) 16 br/min (12/08/23 5:57 AM) 16 br/min (12/08/23 5:56 AM) Temperature [96.8-100.4 DegF] 97.7 DegF (12/08/23 1:43 PM) 98.4 DegF (12/08/23 5:57 AM) 97.4 DegF (12/08/23 5:56 AM) Mode of Delivery (Oxygen) Room air (12/08/23 1:43 PM) Room air (12/08/23 5:57 AM) Room air (12/08/23 5:56 AM) Blood pressure sites Arm, right (12/08/23 1:43 PM) Arm, right (12/08/23 5:57 AM) Arm, right (12/08/23 5:56 AM) Temperature Route Oral (12/08/23 1:43 PM) Oral (12/08/23 5:57 AM) Oral (12/08/23 5:56 AM) Dry Weight 83.3 kg (12/04/23 7:48 PM) Weight Obtained Via Bed scale (12/04/23 7:48 PM) Social History Social History Type Response Smoking Status Former smoker, quit more than 30 days ago entered on: 12/30/20 Sex Female History and physical note * Rehan HO, Letty Rincon: PERFORM, MODIFY Event Display: History and Physical Hospital Authored Date: Patient: ??ALONDRA WORRELL ? Age:??82 Years?Sex:??Female?:??1940?? Chief Complaint/Reason for Consultation according to EMS Pt stays with child who was transported here for SI. Pt has a hx of dementia and according to EMS police states PT can not stay by her self. at this time PT denies complaints. Pt is homeless living in a hotel. History of Present Illness 12/04 ?? 82-year-old female with PMH including dementia, HTN, HLD, DM, remote alcohol use, insomnia, depression.?? Patient was brought to ER for placement issues. ?? Patient was brought to ER on 12/02.?? Patient has dementia. She is not sure why she was brought to ER,??says may be due to??dementia .?? She does not have any complaints other than loss of memory. ?? As per previous notes from ER/case management, patient's social service manager is her daughter Shara who herself was brought to the hospital in crisis by EMS/police.?? Police felt that the patient was unsafe to be left alone in the house and hence she was brought to the hospital as well.?? Reportedly patient's daughter also expressed to EMS that she no longer wishes to care for the patient.?? Also from 11/13 ER/placement but noted seems patient/her daughter has unstable housing situation. ?? So far in ER patient has remained hemodynamically stable.?? COVID is negative.?? An EKG was done that showed sinus rhythm with heart rate of 63, QTc 425, PAC.?? No labs or imaging study were done. ?? Also as per ER documents, social service manager was able to contact elderly protective service.?? Case management has been trying to find placement for the patient, however were unsuccessful for 48 hours.?? Patient placed for observation. ? Review of Systems All systems reviewed and negative except as in HPI. Objective ? Vital Signs?? Temperature: 97.6 DegF (12/04/23 18:14:00) Temperature Route: Oral (12/04/23 18:14:00) Pulse Rate: 87 bpm (12/04/23 18:14:00) Respiratory Rate: 16 br/min (12/04/23 18:14:00) Systolic Blood Pressure: 117 mm Hg (12/04/23 18:14:00) Diastolic Blood Pressure: 67 mm Hg (12/04/23 18:14:00) Blood pressure sites: Arm, left (12/04/23 18:14:00) Mean Arterial Pressure: 84 mm Hg (12/04/23 18:14:00) Pulse Pressure: 50 mm Hg (12/04/23 18:14:00) Oxygen Saturation: 100 % (12/04/23 18:14:00) Mode of Delivery (Oxygen): Room air (12/04/23 18:14:00) Early Warning Score: 2 (12/04/23 19:03:33) ? Physical Exam Constitutional: ??Alert,??no acute distress, co-operative, lying on the bed, saturating well on room air. ?? Mental state: Oriented to place but not date. Head: ??Normocephalic, atraumatic. ?? Eye:?No discharge. ENT: No discharge. Neck: ??Supple,??no JVD. Cardiovascular: ??S1, S2. Regular rhythm. No MRG. Respiratory: ??Lungs are clear to auscultation b/l, No RRR. ?? Gastrointestinal: ??Soft, Nontender, Non distended, ??Normal bowel sounds.?? Genitourinary: No costovertebral angle tenderness. Neurological: ??Cranial nerves intact. Motor and sensory intact. Back: ??Nontender. Musculoskeletal: ??Normal ROM.?? No edema Hematology: No lymphadenopathy Skin: ??Warm, dry. Psychiatric: ??Cooperative.?? Assessment/Plan Diagnoses Dementia ??(F03.90) Depression ??(F32.A) Diabetes ??(E11.9) HLD (hyperlipidemia) ??(E78.5) HTN (hypertension) ??(I10) Housing problems ??(Z59.9) Neglected elder ??(T74.01XA) ?? Assessment:??82-year-old female with PMH including dementia, HTN, HLD, DM, remote alcohol use, insomnia, depression. Patient was brought to ER for placement issues. ?? Dementia (F03.90):??. Neglected elder (T74.01XA):??. Housing problems (Z59.9):??. Patient with dementia, unable to??take or of herself. Her daughter was??social service manager but??she recently herself got admitted.?? Patient??is not safe??to liveat home??by herself.?? Hence she was brought to the hospital. Also??daughter/patient is having housing problems, apparently??living from the hotel now. Social work and case management??consult??for placement issues. As documented social service manager also??contacted??elderly protective service??for suspected neglect. OT consult. Outpatient workup for dementia. Check CBC, B12, TSH. ?? Diabetes (E11.9):??. Does not seem to be on any medication. POC glucose and SSI. ?? HLD (hyperlipidemia) (E78.5):??. She said she??does not take any meds.?? Outpatient follow-up. ?? HTN (hypertension) (I10):??. At hospital patient is not getting??any antihypertensive and blood pressure is well-controlled.?? Previously was on??HCTZ and lisinopril but she says she is not on any meds anymore. Monitor BP. ?? Depression (F32.A):??. No recent medication.?? Outpatient follow-up. ?? VTE Prophylaxis:??Ambulatory ?VTE Prophylaxis Assessment:??Risk Level documented as Low Risk ?? Code Status:??Full code ?Order Code Status:??Code Status Ordered ?? Discharge Planning:? Histories Allergies Allergies ?(Active and Proposed Allergies Only) NKA? (Severity: Unknown severity, Onset: Unknown) ? Past Medical History/Problem List Active Problems??(18) Alcohol abuse Alcohol use Chronic pain of right ankle Cognitive impairment History of fracture of right ankle History of total replacement of right ankle HTN (hypertension) Hyperlipidemia Impaired fasting glucose Insomnia Left knee DJD Major depression MDD (major depressive disorder), recurrent episode, mild Memory loss Obese class I Obesity (BMI 30-39.9) Prediabetes Unsteady gait ? Past Surgical History Repair of ankle ? Social History Alcohol Details:??Use: Current. ??Frequency: 1-2 times per month. Employment/School Details:??Status: Retired. Exercise Details:??Self assessment: Fair condition. ??Other: walking. Home/Environment Details:??Living situation: Home/Independent. ??Lives with: Alone. Nutrition/Health Details:??Diet: Regular. Substance Abuse Details:??Use: Never. Tobacco Details:??Use: Former smoker, quit more than 30 days ago. ? Family History Mother: Diabetes mellitus type II; Heart attack Father: Alcoholism; Liver cirrhosis ? Medications Home Medications Atorvastatin (atorvastatin 20 mg oral tablet)?1?tab(s)?20?Milligram?By Mouth?Daily at bedtime Calcium And Vitamin D Combination (calcium and vitamin D combination 500 mg-200 iu oral tablet)?1?tab(s)?By Mouth?2 times a day Durable Medical Equipment (Cane)?See Instructions?Cane-Dx Unseady gait Hydrochlorothiazide (hydrochlorothiazide 50 mg oral tablet)?50?Milligram?1?tablet?ByMouth?Daily Lisinopril (lisinopril 20 mg oral tablet)?1?tablet?By Mouth?Daily Sertraline (sertraline 50 mg oral tablet)?1?tab(s)?50?Milligram?By Mouth?Daily ? Inpatient Medications Medications (10) Active SCHEDULED: (2) Insulin Lispro 100 units/mL Inj (3mL) (Insulin LISPRO Sliding Scale) ??2-10 units, Subcutaneous Injection, 3 times a day before meals NaCl 0.9% Flush 3ml (NaCL 0.9% Flush) ??3 mL, IV Push, Every 8 hours CONTINUOUS: (0) PRN: (8) Acetaminophen 325 mg Tablet (Acetaminophen Tablet) ??650 mg, By Mouth, Every 4 hours Dextromethorphan-Guaifenesin 20 mg-200 mg/10 mL Liqu UD (Robitussin DM Liquid) ??10 mL, By Mouth, Every 4 hours Docusate Sodium 100 mg Capsule (Docusate Sodium Capsule) ??100 mg 1 capsule, By Mouth, 2 times a day Melatonin 3 mg Tablet (Melatonin Tablet) ??3 mg, By Mouth, Daily at bedtime NaCl 0.9% Flush 3ml (NaCL 0.9% Flush) ??3 mL, IV Push, Every 8 hours Polyethylene Glycol 17 Gm Powder (MiraLax Powder) ??17 Gm 1 pack/packet, By Mouth, Daily Senna Tablet ??8.6 mg 1 tablet, By Mouth, 2 times a day Simethicone 80 mg Chewable Tablet (Simethicone Tablet) ??80 mg, Chew, 3 times a day ? Results Recent Labs CHEM GENERAL Glucose, POC 175 mg/dL (High)?? 12/04/2023 17:37 ? Microbiology ?? COVID-19, RSV, and Flu A/B, Rapid PCR?? Completed?? Source: Nasal Body Site: Nose Collected Dt/Tm: 12/02/2023 17:38 Last Updated Dt/Tm: 12/02/2023 18:45 ? EKG study * Event Display: EKG Authored Date: * Event Display: ECG 12-Lead Authored Date: Please click on pdf link to open report * Event Display: ECG 12-Lead Authored Date: Ventricular Rate: 63 BPM Atrial Rate: 63 BPM P-R Interval: 186 ms QRS Duration: 86 ms Q-T Interval: 416 ms QTC Calculation(Bazett): 425 ms P [place]: -17 degrees R [place]: 29 degrees T [place]: 43 degrees Sinus rhythm with Premature atrial complexes Low voltage QRS Borderline ECG When compared with ECG of 10-NOV-2023 16:52, No significant change was found Confirmed by [facility] ([id number]) on 12/04/2023 5:12:38 PM [place]: [facility] * Brittany Hager RN: PERFORM, SIGN, VERIFY Event Display: [facility] Authored Date: Patient: ALONDRA WORRELL Age: 82 years Sex: Female : 1940 Associated Diagnoses: None Author: Brittany Hager RN Findings Problem Related to Self Care Deficit : Self Care Deficit/new 12/08/2023 16:00 EST Self Care Deficit Related to Cognitive impairment, Other: Dementia Goals & Outcomes, Self Care Deficit Pt will safely perform self care to maximum ability Interventions, Self Care Deficit Resolved problem, Interventions no longer in effect Goals/Interventions,Self Care Deficit Yes Self Care Deficit, Problem Start 12/04/2023 22:29 Reviewed plan with, Self Care Deficit Patient, Children Patient Progression, Self Care Deficit Resolved problem Self Care Deficit, Problem Resolved 12/08/2023 16:55 . Evaluation Pt alert, oriented to self and place, confused about date and events. Pt assisted with care as needed. She does not present with any cardiac/resp distres. Pt discharged home, dgtr is aware and agrees. Pt has no IV access to remove. D/c instructions reviewed with pt and dgtr and bedside, questions en couraged and answered. Pt left unit ambulatory accompanied by dgtr. . Discharge Information Case Management Discharge Plan : Case Management Discharge Plan Data 12/08/2023 17:00 EST Discharge Level of Care at Discharge Home/Long Term/Foster Care 12/02/2023 22:29 EST Discharge Nursing Homes/Rehab Facilities Not Done: Task Duplication (Not Done) Discharge Rest Homes/Residences/Shelters Not Done: Task Duplication (Not Done) Discharge VNA/Hospice/Home Care Not Done: Task Duplication (Not Done) Discharge Medical Equipment Companies Not Done: Task Duplication (Not Done) Rehabilitation Discharge : Rehab Discharge Index 12/07/2023 8:51 EST Full chart review completed Not Done: Assessed, No Action Needed (Not Done) 12/06/2023 15:42 EST Comments on treatment indicated OT role, ADLs, func mob, safety Full chart review completed Yes * Brittany Hager RN: PERFORM, SIGN, VERIFY Event Display: Progress Note Hospital Authored Date: Patient: ALONDRA WORRELL Age: 82 years Sex: Female : 1940 Associated Diagnoses: None Author: Brittany Hager RN Findings Problem Related to Self Care Deficit : Self Care Deficit/new 12/07/2023 11:00 EST Self Care Deficit Related to Cognitive impairment, Other: Dementia Goals & Outcomes, Self Care Deficit Pt will safely perform self care to maximum ability Interventions, Self Care Deficit Assess ability to carry out ADL's, Assist patient with ADLs prn, Encourage patient to participate in ADLs prn, Use consistent routines BH Goals/Interventions,Self Care Deficit Yes Self Care Deficit, Problem Start 12/04/2023 22:29 Reviewed plan with, Self Care Deficit Patient, Family/caregiver not available Patient Progression, Self Care Deficit Pt progressing according to plan . Evaluation P: Alteration in self care deficit I: See above interventions E: Pt alert, oriented x 2, she denies pain on assessment. Pt assisted with adl's as needed, she does not present with increased agitation, no s/s hypo/hyperglycemia noted. Call reyna within reach, bedalarm on, safety maintained. . Discharge Information Case Management Discharge Plan : Case Management Discharge Plan Data 12/02/2023 22:29 EST Discharge Nursing Homes/Rehab Facilities Not Done: Task Duplication (Not Done) Discharge Rest Homes/Residences/Shelters Not Done: Task Duplication (Not Done) Discharge VNA/Hospice/Home Care Not Done: Task Duplication (Not Done) Discharge Medical Equipment Companies Not Done: Task Duplication (Not Done) Rehabilitation Discharge : Rehab Discharge Index 12/07/2023 8:51 EST Full chart review completed Not Done: Assessed, No Action Needed (Not Done) 12/06/2023 15:42 EST Comments on treatment indicated OT role, ADLs, func mob, safety Full chart review completed Yes * Roro Chiu MD: PERFORM Event Display: Progress Note Hospital Authored Date: Patient: ??ALONDRA WORRELL ? Age:??82 Years?Sex:??Female?:??1940?? Subjective no new complaints; patient forgetful but calm and pleasant Review of Systems ROS was done and relevant for the above, otherwise negative Objective Vital Signs?? Temperature: 98 DegF (12/07/23 13:56:00) Temperature Route: Oral (12/07/23 13:56:00) Pulse Rate: 80 bpm (12/07/23 13:56:00) Respiratory Rate: 18 br/min (12/07/23 13:56:00) Systolic Blood Pressure: 98 mm Hg (12/07/23 13:56:00) Diastolic Blood Pressure: 55 mm Hg (12/07/23 13:56:00) Blood pressure sites: Arm, left (12/07/23 13:56:00) Mean Arterial Pressure: 69 mm Hg (12/07/23 13:56:00) Pulse Pressure: 43 mm Hg (12/07/23 13:56:00) Oxygen Saturation: 99 % (12/07/23 13:56:00) Mode of Delivery (Oxygen): Room air (12/07/23 13:56:00) Early Warning Score: 1 (12/07/23 13:58:26) ? Intake/Output? 12/02 16:28 12/06 07:00 07:00 12/05 07:00 12/04 07:00 ?? 12/06 16:13 12/06 16:13 12/06 06:59 06:59 12/05 06:59 Intake ?180 ?0 ?0 ?180 ?0 Output ?0 ?0 ?0 ?0 ?0 Net Total ?180 ?0 ?0 ?180 ?0 ? Urine Count ?4 ?0 ?0 ?1 ?3 ? Physical Exam Constitutional: ??Alert,??no acute distress, co-operative Mental state: Oriented to place and year but not date. Neck: ??Supple,??no JVD. Cardiovascular: ??S1, S2. Regular rhythm. Respiratory: ??Lungs are clear to auscultation b/l Gastrointestinal: ??Soft, Nontender, Non distended, ??Normal bowel sounds.?? Genitourinary: No costovertebral angle tenderness. Neurological:?? grossly non focal _ Inpatient Medications Medications (10) Active SCHEDULED: (2) Insulin Lispro 100 units/mL Inj (3mL) (Insulin LISPRO Sliding Scale) ??2-10 units, Subcutaneous Injection, 3 times a day before meals NaCl 0.9% Flush 3ml (NaCL 0.9% Flush) ??3 mL, IV Push, Every 8 hours CONTINUOUS: (0) PRN: (8) Acetaminophen 325 mg Tablet (Acetaminophen Tablet) ??650 mg, By Mouth, Every 4 hours Dextromethorphan-Guaifenesin 20 mg-200 mg/10 mL Liqu UD (Robitussin DM Liquid) ??10 mL, By Mouth, Every 4 hours Docusate Sodium 100 mg Capsule (Docusate Sodium Capsule) ??100 mg 1 capsule, By Mouth, 2 times a day Melatonin 3 mg Tablet (Melatonin Tablet) ??3 mg, By Mouth, Daily at bedtime NaCl 0.9% Flush 3ml (NaCL 0.9% Flush) ??3 mL, IV Push, Every 8 hours Polyethylene Glycol 17 Gm Powder (MiraLax Powder) ??17 Gm 1 pack/packet, By Mouth, Daily Senna Tablet ??8.6 mg 1 tablet, By Mouth, 2 times a day Simethicone 80 mg Chewable Tablet (Simethicone Tablet) ??80 mg, Chew, 3 times a day ? Results Recent Labs CHEM GENERAL Glucose, POC 88 mg/dL ()?? 12/07/2023 12:28 ? Assessment/Plan Chief Complaint: according to EMS Pt stays with child who was transported here for SI. Pt has a hx of dementia and according to EMS police states PT can not stay by her self. at this time PT denies complaints. Pt is homeless living in a hotel. ?? Diagnoses Dementia ??(F03.90) Depression ??(F32.A) Diabetes ??(E11.9) HLD (hyperlipidemia) ??(E78.5) HTN (hypertension) ??(I10) Housing problems ??(Z59.9) Neglected elder ??(T74.01XA) ?? Assessment:??82-year-old female with PMH including dementia, HTN, HLD, DM, remote alcohol use, insomnia, depression. Patient was brought to ER for placement issues. ?? Dementia (F03.90):??Patient with dementia, unable to take care of herself. Her daughter was social service manager but she recently herself got admitted. Patient is not safe to live at home by herself. Hence she was brought to the hospital. Also daughter/patient is having housing problems, living at a hotel Social work and case management on board for placement issues. social service manager also contacted elderly protective service for suspected neglect. psych eval for capacity appreciated; recommending??OT consultation for Livings Skills and SLUMS/MOCA evaluation;??If OT evaluation indicates impairment in ability to care for self/cognition, would defer medical decision making to daughter/HCP. OT consult ordered B12 and TSH levels came back normal. ?? per case management and social service manager, patient could not be placed her daughter is being discharged from facility later today and will be able to pick her mom up in am; daughter will be mom's main palliative care specialist; Since they have no fixed address, home services could not be arranged plan is for early dc in AM ?? Diabetes (E11.9):??Does not seem to be on any medication. POC glucose and SSI. Glucose levels have been on target ?? HLD (hyperlipidemia) (E78.5):??She said she does not take any meds. Outpatient follow-up. ?? HTN (hypertension) (I10):??Previously on HCTZ and lisinopril; Not on any meds at the moment BP remains very well controlled. ?? Depression (F32.A):??No recent medication. Outpatient follow-up. ?? VTE Prophylaxis:??ambulatory ?VTE Prophylaxis Assessment:??Risk Level documented as Low Risk ?? Code Status:??Full code ?Order Code Status:??Code Status Ordered ?? Discharge Planning:??pending OT eval ? Consult note * Valery Spencer MD: PERFORM, MODIFY Event Display: Consultation Note Authored Date: [id number] Patient: ??ALONDRA WORRELL ? Age:??82 Years?Sex:??Female?:??1940?? Chief Complaint/Reason for Consultation according to EMS Pt stays with child who was transported here for SI. Pt has a hx of dementia and according to EMS police states PT can not stay by her self. at this time PT denies complaints. Pt is homeless living in a hotel. Referring Provider:??Dr. Chiu Consulting psychiatrist:??Dr. Wright Sources of information:??[facility], patient ?? Identifying information:?? Reason for hospitalization, medical diagnosis: Concern for elder neglect, housing problems Psychiatry was consulted for: Capacity to engage in medical??decision making History of Present Illness Alondra Worrell is an 82 year old patient with a past psychiatric history of depression, history of alcohol use, and history of dementia who was brought to the ED by EMS after they brought her daughter into the hospital and did not feel that she was safe to live alone. Psychiatry is being consulted for capacity for medical decision making. ?? Alondra is seen this morning in her room. She shares information about her life up to this point. She grew up in [place] and spent most of her life there. She completed her Associate's degree. Alondra states she is only up here, as in [place], because she was visiting her daughter. Alondra reports she lives by herself usually and was just visiting her daughter. She is unsure how long she has been visiting her daughter or how long she has been in the hospital. When asked what brought her into the hospital, she replies the ambulance. At home, Alondra states she can cook, clean, bathe, and tend to her ADLs by herself. She notes that the issue with leaving the hospital however is that she does not know where she would go. She states she is happy to go to a rehab or a half-way facility if that is offered as an option. She appropriately asks where she would go if that were not an option. ?? Alondra mentions she has been struggling with her memory for some time now. She is oriented to person and place ([facility]). She is not oriented to time or situation. She does not remember why her daughter called the ambulance or if anything was wrong with her. She does say she feels safe when she is living with her daughter. She notes she has not been happy for some time though. She still enjoys watching TV and shows, but it brings her less rebecca then it usually does. She reports that while her sleep is off and on , she has not noticed a change in her energy levels or appetite. ?? Past Psychiatric History?? Previous diagnoses: depression, dementia Past hospitalizations: denies Medication trials:??sertraline Past outpatient providers: reports she has had previous therapist/psychiatrist but cannot remember their names Past suicide attempts: denies ?? Family Psychiatric History Past diagnoses: denies; per chart review, father had a history of alcohol use Suicide attempts: denies ?? Social History?? She notes she was [place] in [place]. She currently is living with her daughter in a hotel. Her daughter isher primary social service manager. She enjoys watching baseball and tennis. ?? Substance Use History?? No cigarette smoking Rarely has a drink No benzodiazepine, opioid, cocaine, meth, or PCP use. ?? Review of Systems Psychiatric Review of Systems Depression: reports feeling unhappy and has noticed changes in her sleep; denies anhedonia,??guiltiness/worthlessness, low energy, trouble concentrating, loss of/excessive appetite, psychomotor retardation/ agitation, SI. Gildardo: denies symptoms of gildardo, including elated mood, high energy with little to no sleep for consecutive days, racing thoughts, impulsivity. Psychosis: denies symptoms of psychosis, including auditory or visual hallucinations, disorganized thoughts, dissociation from reality. Anxiety:denies increased anxiety, racing thoughts, panic attacks PTSD: denies symptoms of PTSD, such as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 18.8 ng/mL Glucose Level (12/05/2023) ???Glucose Level - 149 mg/dL GLUCOSE POC (12/08/2023) ???Glucose, POC - 81 mg/dL TSH (12/05/2023) ???TSH - 1.10 uIU/mL Immunizations This Visit Not Given Vaccine Commentsinfluenza virus vaccine, inactivated Expectation Not Necessary pt has memory loss and is unsure if she was vaccinated this season. dgtr unavailable to answer for pt at this time. Allergies (NKA means No Known Allergies) NKA Problems Active Problems??(17) Alcohol abuse?? Alcohol use?? Chronic pain of right ankle?? Cognitive impairment?? History of fracture of right ankle?? History of total replacement of right ankle?? HTN (hypertension)?? Hyperlipidemia?? Impaired fasting glucose?? Insomnia?? Left knee DJD?? Major depression?? MDD (major depressive disorder), recurrent episode, mild?? Memory loss?? Obesity (BMI 30-39.9)?? Prediabetes?? Unsteady gait?? Education Materials Below is the list of Educational Leaflet Providered with your Discharge Instructions. Valuables and Belongings I fully understand and agree that [facility] accepts no responsibility for all my personal property including clothing, toilet articles, radios, jewelry, dentures, hearing aids, rings, money, or any other property that is in my possession or is brought to me after admission. I understand certain valuables may be placed in a hospital safe for a short period of time. I understand that the hospital is not liable for loss or damage due to accident, fire, or other natural occurrence while said property is in the safe. I accept full responsibility for any personal property that I keep with me, and will not hold the hospital responsible in case of loss or disappearance. I acknowledge that i have been encouraged to send valuables and belongings home. ?? Review of Valuable and Belonging List: With patient Date for Pt to Sign Valuables/Belongings: 12/04/23 18:10:00 ?? Other Discharge Information ? Pulmonary Rehab Status?? Pulmonary Rehab Discharge Status?? Respiratory Rate: 16 br/min ? Common Emergency Awareness Tips IS IT A STROKE? Act FAST and Check for these signs: FACE Does the face look uneven? ARM Does one arm drift down? SPEECH Does their speech sound strange? TIME Call at any sign of stroke ?? Heart Attack Signs Chest discomfort: Most heart attacks involve discomfort in the center of the chest and lasts more than a few minutes, or goes away and comes back. It can feel like uncomfortable pressure, squeezing, fullness or pain. Discomfort in upper body: Symptoms can include pain or discomfort in one or both arms, back, neck, jaw or stomach. Shortness of breath: With or without discomfort. Other signs: Breaking out in a cold sweat, nausea, or lightheaded. Remember, MINUTES DO MATTER. If you experience any of these heart attack warning signs, call to get immediate medical attention! ?? Smoking can increase your chances of developing chronic health problems and can cause harmful effects to other family members in your house. If you smoke, you are strongly encouraged to quit. Please call [facility] Link at [phone] or [phone] ([phone]) or log in to [email or web address] for referrals to smoking cessation programs. ?? 882 Suicide & Crisis Lifeline is available 30/04 if you or someone you know needs to find a reason to keep living. By calling 243 you'll be connected to a skilled, trained counselor at a crisis center in your area. INPATIENT DISCHARGE INSTRUCTIONS SIGNATURE PAGE ALONDRA WORRELL Location:[facility] Registration Date and Time:12/02/2023 16:28 EST Primary Care Physician: Latrice Laguna NP, Attending Physician: Roro Chiu MD, I ALONDRA WORRELL, have received the above patient education materials/instructions and have verbalized understanding. If ambulance or transport services are being used I further acknowledge beinggiven a choice of service. ?? If you need to contact me, please call me at this number: . Patient/Injection Mold Technician Name: Patient/Injection Mold Technician Signature: Relationship to Patient: Witness Name/Signature: Date: Patient Care team information Care Team Personnel Name: Landy Hernández LPN Position: S RN Member Role: Primary Care Nurse Name: Danika Wilkerson RN Position: S RN Member Role: Primary Care Nurse Name: Latrice Laguna NP Position: [facility] PCO Associate Professional Member Role: PCP Address: Address: [address] [place] [address] [address] Care Team Related Persons Name: SHARA WORRELL
--- OUTSIDE RECORDS SUMMARY | 2024-08-29 12:25 | XMS_ITS | Continuity of Care Document ---
Author Organization [facility] Adult Address [address] [place] [address]- Care Team Providers Care Certified Solid Waste Facility Operator Name Role Phone Jase LEE, Latrice Champagne Primary Care Physician Encounter [facility] [place] Date(s): 05/13/20 - 06/12/20 [facility] [address] [place] [address] [facility] Allergies, Adverse Reactions, Alerts Substance Reaction Severity Status NKA Active Immunizations Given and Recorded Vaccine Date Status Refusal Reason pneumococcal 13-valent vaccine 1 07/10/19 Given 1Result Comment: [facility]: [id number] Medications atorvastatin 20 mg oral tablet 1 [...]
--- OUTSIDE RECORDS SUMMARY | 2024-08-29 12:25 | XMS_ITS | Continuity of Care Document ---
Author Organization [facility] Adult Address [address] [place] [address]- Care Team Providers Care Linter Operator Name Role Phone Jase CLAIMS ADJUSTER CROP, Latrice Champagne Primary Care Physician Encounter [facility] [place] Date(s): 12/24/23 - 01/23/[address] [address] Allergies, Adverse Reactions, Alerts No Known Allergies Immunizations Given and Recorded Vaccine Date Status Refusal Reason tetanus/diphtheria/pertussis, acel(Tdap) 12/10/23 Recorded tetanus-diphtheria toxoids (Td) 04/15/22 Recorded SARS-CoV-2 (COVID-19) mRNA-1273 vaccine 02/13/21 R ecorded SARS-CoV-2 (COVID-19) mRNA-1273 vaccine 01/16/21 R ecorded pneumococcal 13-valent vaccine 1 07/10/19 Given 1Result Comment: [facility]: [id number] Medications calcium and vitamin D combination 500 mg-200 iu oral tablet 1 tablet, By Mouth, 2 times a day, # 180 tablet, 2 Refills, Maintenance, 07/14/22 11:17:00 EDT, Tablet, [id number], Partial fill upon patient request [...] 0 Refills, Maintenance, 12/24/23 16:40:00 EDT, Tablet, [facility] 1966, Partial fill upon patient request if the prescription is for a schedule II opioid drug., 169, cm, 12/24/23 16:10:00 EDT, He.. Start Date: 12/24/23 Status: Ordered PARoxetine 10 mg oral tablet 10 mg, 1, tablet, By Mouth, Daily, # 90 tablet, Refills 0, Tot. Refills 0, Maintenance, 12/24/23 16:44:00 EDT, Route to Pharmacy Electronically, [facility] 1966, Partial fill upon patient request [...] Team Personnel Name: Landy Hernández LPN Position: [facility] RN Member Role: Primary Care Nurse Name: Saba Gilbert Position: [facility] [place] Hammer Fitter Member Role: Technical Expert Name: Danika Wilkerson RN Position: [facility] RN Member Role: Primary Care Nurse Name: Latrice Laguna NP Position: [facility] PCO Associate Professional Member Role: PCP Address: Address: [address] [place] [address] [address] [place] [address]- Care Team Related Persons Name: JD MARROQUIN
--- OUTSIDE RECORDS SUMMARY | 2024-08-29 12:25 | XMS_ITS | Continuity of Care Document ---
Author Organization [facility] ter Address [address] [place] [address]- Care Team Providers Care Electronics Instructor Name Role Phone Jase TETRYL NITRATOR OPERATOR, Latrice Champagne Primary Care Physician [phone] [id number] Date[facility]s): 12/28/21 - 12/29/[address] [address]- Encounter Diagnosis Acute alcohol intoxication(Final) - 12/28/21 Discharge Disposition: A-D/C Home Attending Physician: Hakeem Mejia MD Admitting Physician: Hakeem Mejia MD Referring Physician: Not on Staff, Referring MD Allergies, Adverse Reactions, Alerts No Known Allergies Immunizations Given and Recorded Vaccine Date Status Refusal Reason SARS-CoV-2 (COVID-19) mRNA-1273 vaccine 02/13/21 R ecorded SARS-CoV-2 (COVID-19) mRNA-1273 vaccine 01/16/21 R ecorded pneumococcal 13-valent vaccine 1 07/10/19 Given 1Result Comment: [facility]: [id number] Medications atorvastatin 20 mg oral tablet 1 [...] 3 Refills, Maintenance, 05/01/21 15:00:00 EDT, Tablet, [id number], 1 tablet By Mouth Daily,x90 days, 165, cm, 12/30/20 10:18:00 EDT, Height Start Date: 05/01/21 Stop Date: 04/26/22 Status: Ordered Knee Support See Instructions, # [...] Active Left knee DJD(Confirmed) Active Prediabetes(Confirmed) Active Vital Signs Most recent to oldest [Reference Range]: 1 2 Oxygen Saturation [94-100 %] 100 % (12/29/21 2:05 AM) 100 % (12/28/21 11:29 PM) Pulse Rate [55-90 bpm] 60 bpm (12/29/21 2:05 AM) 61 bpm (12/28/21 11:29 PM) Blood Pressure [90-138/55-84 mm Hg] 128/ 66mm Hg (12/29/21 2:05 AM) 132/60mm Hg (12/28/21 11:29 PM) Respiratory Rate [16-30 br/min] 18 br/mi n (12/29/21 2:05 AM) 20 br/min (12/28/21 11:29 PM) Temperature [96.8-100.4 DegF] 98.1 DegF (12/29/21 2:05 AM) 98.7 DegF (12/28/21 11:29 PM) Temperature Route Oral (12/29/21 2:05 AM) Oral (12/28/21 11:29 PM) Social History Social History Type Response Smoking Status Former smoker, quit more than 30 days ago entered on: 12/30/20 Sex Female
--- OUTSIDE RECORDS SUMMARY | 2024-08-29 12:25 | XMS_ITS | Continuity of Care Document ---
Author Organization [facility] Adult Address [address] [place] [address]- Care Team Providers Care Stonehand Name Role Phone Jase LEE, Latrice Champagne Primary Care Physician En[place] [facility] Date(s): 09/24/20 - 01/22/21 [facility] [address] [place] [id number] Attending Physician: Not on Staff, Attending MD Allergies, Adverse Reactions, Alerts Substance Reaction Severity Status NKA Active Immunizations Given and Recorded Vaccine Date Status Refusal Reason SARS-CoV-2 (COVID-19) mRNA-1273 vaccine 01/16/21 R ecorded pneumococcal 13-valent vaccine 1 07/10/19 Given 1Result Comment: [facility]: [id number] Medications atorvastatin 20 mg oral tablet 1 [...]
--- OUTSIDE RECORDS SUMMARY | 2024-08-29 12:25 | XMS_ITS | Continuity of Care Document ---
Author Organization [facility] Adult Address [address] [place] [address]- Care Team Providers Care Wrecker Operator Name Role Phone Jase LEE, Latrice Champagne Primary Care Physician Encounter [facility] [place] Date(s): 12/24/23 - 12/31/[address] [address]- Attending Physician: Not on Staff, Attending MD Allergies, Adverse Reactions, Alerts No Known Allergies Immunizations Given and Recorded Vaccine Date Status Refusal Reason tetanus/diphtheria/pertussis, acel(Tdap) 12/10/23 Recorded tetanus-diphtheria toxoids (Td) 04/15/22 Recorded SARS-CoV-2 (COVID-19) mRNA-1273 vaccine 02/13/21 R ecorded SARS-CoV-2 (COVID-19) mRNA-1273 vaccine 01/16/21 R ecorded pneumococcal 13-valent vaccine 1 07/10/19 Given 1Result Comment: [facility]: [id number] Medications calcium and vitamin D combination 500 mg-200 iu oral tablet 1 tablet, By Mouth, 2 times a day, # 180 tablet, 2 Refills, Maintenance, 07/14/22 11:17:00 EDT, Tablet, [id number], Partial fill upon patient request [...] 0 Refills, Maintenance, 12/24/23 16:40:00 EDT, Tablet, [facility] 1966, Partial fill upon patient request if the prescription is for a schedule II opioid drug., 169, cm, 12/24/23 16:10:00 EDT, Rodri. Start Date: 12/24/23 Status: Ordered PARoxetine 10 mg oral tablet 10 mg, 1, tablet, By Mouth, Daily, # 90 tablet, Refills 0, Tot. Refills 0, Maintenance, 12/24/23 16:44:00 EDT, Route to Pharmacy Electronically, [facility] 1966, Partial fill upon patient request [...] Range]: 1 2 3 Height 169 cm (12/24/23 4:47 PM) 169 cm (12/24/23 4:10 PM) 169 cm (12/24/23 3:59 PM) Weight 86.1 kg (12/24/23 3:59 PM) Oxygen Saturation [94-100 %] 98 % (12/24/23 3:59 PM) Pulse Rate [55-90 bpm] 62 bpm (12/24/23 4:47 PM) 37 bpm *L* (12/24/23 3:59 PM) Body Mass Index [18.5-24.99 kg/m2] 30.15 kg/m2 *>HHI* (12/24/23 3:59 PM) Blood Pressure [90-138/55-84 mm Hg] 152/74mm Hg *H* (12/24/23 4:10 PM) 155/80mm Hg *H* (12/24/23 3:59 PM) Mode of Delivery (Oxygen) Room air (12/24/23 3:59 PM) Blood pressure sites Arm, left (12/24/23 4:10 PM) Arm, left (12/24/23 3:59 PM) Weight Obtained Via Standing scale (12/24/23 3:59 PM) Social History Social History Type Response Smoking Status Former smoker, quit more than 30 days ago entered on: 12/30/20 Sex Female Note * Rossana Mary: PERFORM, SIGN, VERIFY Event Display: Patient Education/Instruction Authored Date: [id number] [facility] Clinical Summary Name ALONDRA MARROQUIN Age 82 Years 1940 PCP Latrice Laguna NP PCP Visit Date 12/24/2023 15:56:00 Additional Instructions: Scheduled Appointments?? Future Appointments ?No Future Appointments Scheduled Follow-Up Instructions ?? With: Address: When: Latrice Laguna NP Comments: 1 months multiple issues?? 40 minutes?? 6 months AWV With: Address: When: Latrice Laguna NP Diagnosis Major depressive disorder, recurrent, mild; Prediabetes; Essential (primary) hypertension; Other symptoms and signs involving cognitive functions and awareness; Other amnesia; Hyperlipidemia, unspecified Medications: Please continue your medications until treatment is completed or stopped by your provider. Discuss any questions related to medications with your provider. New Medications [facility], [address] [place], [place] [id number], [phone] Losartan (losartan 25 mg oral tablet) 1 tab(s) Oral Daily. Refills: 0. Next Dose: Paroxetine (PARoxetine 10 mg oral tablet) 1 tab(s) Oral Daily. Refills: 0. Next Dose: Medications to Continue with No Changes These medications were not printed or sent to your pharmacy Calcium And Vitamin D Combination (calcium and vitamin D combination 500 mg-200 iu oral tablet) 1 tab(s) Oral twice a day. Refills: 2. Next Dose: Durable Medical Equipment (Cane) Cane- Dx Unseady gait. Refills: 0. Next Dose: Allergy Info:?? NKA Medications Given This Visit Future Orders ?No future orders Future Orders ?Renal Panel? Order Date:12/24/23?- Complete within?Hemoglobin A1C (Monitoring)? Order Date:12/24/23?- Complete within? Vital Signs Height 169 cm Weight 86.1 kg BMI 30.15 kg/m2 Blood Pressure 152 mm Hg/74 mm Hg Temperature Pulse Rate 62 bpm Respiratory Rate 02 Sat Mode of Delivery 98 %/Room air You can now view a summary of your hospital visit from the comfort of your home through a free online portal called [employer]. [employer] is a website that allows you to securely view your medical information including discharge summary, medications and follow-up visits. ??You can alsosend a secure electronic message to your doctor???s office to request appointments, renew medications or just ask a question. You can enroll at [email or web address] or register during your next office visit. Disclaimer:?? The information provided is of a general nature and is intended to be used in conjunction with the recommendations and advice of your health care practitioner. ??Every effort has been made to ensure that the information provided is accurate and complete at the time it is provided to you however, as your needs change, or, as new ??information becomes available, different or additional instructions may be required. If you have questions, please consult with your primary care provider or pharmacist, as appropriate. ??This information is not intended to serve as substitution for assessment and evaluation by a qualified health care provider. If you do not have a primary care provider, you may find a [facility] provider by calling [employer] at [phone]. [facility], in keeping with [facility] guidance, no longer requires face masks for staff, patientsor visitors in most situations. Similar to time spent indoors at other locations, there is the chance that you were exposed to respiratory viruses during your time with us (such as flu or COVID-19).? If you develop symptoms concerning for a viral respiratory infection, please seek testing (and treatment if indicated) from your medical provider or home test kit. For information about the plan of care including goals and instructions for your diagnosis, please see the patient education orders section of this document. Patient Education Materials?? The content of this educational material or handout may have been modified, supplemented, or adapted from its original content and format to support your individualized medical care. * Anna Gomez: PERFORM, SIGN, VERIFY Event Display: Patient Education/Instruction Authored Date: [id number] [facility] *[facility] Clinical Summary Name ALONDRA MARROQUIN Age 82 Years 1940 PCP Latrice Laguna NP PCP Visit Date 12/24/2023 15:56:00 Additional Instructions: Scheduled Appointments?? Future Appointments ?No Future Appointments Scheduled Follow-Up Instructions ?? With: Address: When: Latrice Laguna NP Comments: 1 months multiple issues?? 40 minutes?? 6 months AWV With: Address: When: Latrice Laguna NP Diagnosis Major depressive disorder, recurrent, mild; Prediabetes; Essential (primary) hypertension; Other symptoms and signs involving cognitive functions and awareness; Other amnesia; Hyperlipidemia, unspecified Medications: Please continue your medications until treatment is completed or stopped by your provider. Discuss any questions related to medications with your provider. New Medications [facility], [address] [place], [place] [id number], [phone] Losartan (losartan 25 mg oral tablet) 1 tab(s) Oral Daily. Refills: 0. Next Dose: Paroxetine (PARoxetine 10 mg oral tablet) 1 tab(s) Oral Daily. Refills: 0. Next Dose: Medications to Continue with No Changes These medications were not printed or sent to your pharmacy Calcium And Vitamin D Combination (calcium and vitamin D combination 500 mg-200 iu oral tablet) 1 tab(s) Oral twice a day. Refills: 2. Next Dose: Durable Medical Equipment (Cane) Cane- Dx Unseady gait. Refills: 0. Next Dose: Allergy Info:?? NKA Medications Given This Visit Future Orders ?No future orders Future Orders ?Renal Panel? Order Date:12/24/23?- Complete within?Hemoglobin A1C (Monitoring)? Order Date:12/24/23?- Complete within? Vital Signs Height 169 cm Weight 86.1 kg BMI 30.15 kg/m2 Blood Pressure 152 mm Hg/74 mm Hg Temperature Pulse Rate 62 bpm Respiratory Rate 02 Sat Mode of Delivery 98 %/Room air You can now view a summary of your hospital visit from the comfort of your home through a free online portal called [employer]. [employer] is a website that allows you to securely view your medical information including discharge summary, medications and follow-up visits. ??You can alsosend a secure electronic message to your doctor???s office to request appointments, renew medications or just ask a question. You can enroll at [email or web address] or register during your next office visit. Disclaimer:?? The information provided is of a general nature and is intended to be used in conjunction with the recommendations and advice of your health care practitioner. ??Every effort has been made to ensure that the information provided is accurate and complete at the time it is provided to you however, as your needs change, or, as new ??information becomes available, different or additional instructions may be required. If you have questions, please consult with your primary care provider or pharmacist, as appropriate. ??This information is not intended to serve as substitution for assessment and evaluation by a qualified health care provider. If you do not have a primary care provider, you may find a [facility] provider by calling [facility] [employer] Link at [phone]. [facility], in keeping with [facility] guidance, no longer requires face masks for staff, patientsor visitors in most situations. Similar to time spent indoors at other locations, there is the chance that you were exposed to respiratory viruses during your time with us (such as flu or COVID-19).? If you develop symptoms concerning for a viral respiratory infection, please seek testing (and treatment if indicated) from your medical provider or home test kit. For information about the plan of care including goals and instructions for your diagnosis, please see the patient education orders section of this document. Patient Education Materials?? The content of this educational material or handout may have been modified, supplemented, or adapted from its original content and format to support your individualized medical care. Patient Care team information Care Team Personnel Name: Landy Hernández LPN Position: [facility] RN Member Role: Primary Care Nurse Name: Saba Gilbert Position: [facility] [place] Thermal Cutter Hand Member Role: And Rescue Fire Fighter Crash Fire Name: Danika Wilkerson RN Position: [facility] RN Member Role: Primary Care Nurse Name: Latrice Laguna NP Position: [facility] PCO Associate Professional Member Role: PCP Address: Address: [address] [place] [address]- Care Team Related Persons Name: JD MARROQUIN
--- OUTSIDE RECORDS SUMMARY | 2024-08-29 12:25 | XMS_ITS | Continuity of Care Document ---
Author Organization [facility] Adult Address [address] [place] [id number]- Care Team Providers Care Skilled Nursing Facility Counselor Name Role Phone Jase LEE, Latrice Champagne Primary Care Physician Encounter [facility] [place] [place] Date(s): 02/13/24 - 03/14/[address] [address]- Attending Physician: Joel Saavedra Admitting Physician: Joel Saavedra Referring Physician: AdmtrJoel Allergies, Adverse Reactions, Alerts No Known Allergies Immunizations Given and Recorded Vaccine Date Status Refusal Reason tetanus/diphtheria/pertussis, acel(Tdap) 12/10/23 Recorded tetanus-diphtheria toxoids (Td) 04/15/22 Recorded SARS-CoV-2 (COVID-19) mRNA-1273 vaccine 02/13/21 R ecorded SARS-CoV-2 (COVID-19) mRNA-1273 vaccine 01/16/21 R ecorded pneumococcal 13-valent vaccine 1 07/10/19 Given 1Result Comment: [facility]: [id number] Medications calcium and vitamin D combination 500 mg-200 iu oral tablet 1 tablet, By Mouth, 2 times a day, # 180 tablet, 2 Refills, Maintenance, 07/14/22 11:17:00 EDT, Tablet, [facility] [id number], Partial fill upon patient request if the [...] 0 Refills, Maintenance, 12/24/23 16:40:00 EDT, Tablet, [facility] 1966, Partial fill upon patient request if the prescription is for a schedule II opioid drug., 169, cm, 12/24/23 16:10:00 EDT, Hejen... Start Date: 12/24/23 Status: Ordered PARoxetine 10 mg oral tablet 10 mg, 1, tablet, By Mouth, Daily, # 90 tablet, Refills 0, Tot. Refills 0, Maintenance, 12/24/23 16:44:00 EDT, Route to Pharmacy Electronically, [facility] 1966, Partial fill upon patient [...] Team Personnel Name: Landy Hernández LPN Position: [facility] RN Member Role: Primary Care Nurse Name: Saba Gilbert Position: [facility] [place] Traction Power Engineer Member Role: Marketing Compliance Manager Name: Danika Wilkerson RN Position: [facility] RN Member Role: Primary Care Nurse Name: Latrice Laguna NP Position: [facility] PCO Associate Professional Member Role: PCP Address: Address: [address] [place] [address]- Care Team Related Persons Name: JD MARROQUIN
--- OUTSIDE RECORDS SUMMARY | 2024-08-29 12:25 | XMS_ITS | Continuity of Care Document ---
Author Organization [facility] Adult Address [address] [place] [address]- Care Team Providers Care Environmental Monitoring Specialist Name Role Phone Jase APPLICATIONS TESTER, Latrice Champagne Primary Care Physician Encounter [facility] [place] [place] Date(s): 02/02/22 - 04/07/[address] [facility] Adult [address] [place] [address]- Attending Physician: Not on Staff, Attending MD Allergies, Adverse Reactions, Alerts No Known Allergies Immunizations Given and Recorded Vaccine Date Status Refusal Reason SARS-CoV-2 (COVID-19) mRNA-1273 vaccine 02/13/21 R ecorded SARS-CoV-2 (COVID-19) mRNA-1273 vaccine 01/16/21 R ecorded pneumococcal 13-valent vaccine 1 07/10/19 Given 1Result Comment: [facility]: [id number] Medications atorvastatin 20 mg oral tablet 1 tablet = 20 mg, By Mouth, Daily at bedtime, # 90 tablet, 4 Refills, Maintenance, 02/02/22 15:02:00 EDT, Tablet, [facility] #[id number], 165, cm, 02/02/22 15:00:00 EDT, Height Start [...] 0 Refills, Maintenance, 02/02/22 15:03:00 EDT, Tablet, [facility] #[id number], Partial fill upon patient request if the prescription is for a schedule II opioid drug., 165, cm, 02/02/22 15:00:00 EDT... Start Date: 02/02/22 Status: Ordered hydrochlorothiazide-quinapril 20 mg-25 mg oral tablet 1 tablet, By Mouth, Daily, for 90 days, # 90 tablet, 3 Refills, Hard Stop 04/26/22 15:00:00 EDT, 05/01/21 15:00:00 EDT, Tablet, [facility]acy #[id number], 165, cm, 12/30/20 10:18:00 EDT, Height Start Date: 05/01/21 Stop Date: 04/26/22 Status: Ordered hydrochlorothiazide-quinapril 20 mg-25 mg oral tablet 1 tablet, By Mouth, Daily, # 90 tablet, 3 Refills, Maintenance, 04/26/22 15:00:00 EDT, Tablet, [facility] #[id number], 1 tablet By Mouth Daily,x90 days, 165, [...]
--- OUTSIDE RECORDS SUMMARY | 2024-08-29 12:25 | XMS_ITS | Continuity of Care Document ---
Author Organization [facility] Address [address] [place] [address]- Care Team Providers Care Vest Presser Name Role Phone Jase LEE, Latrice Champagne Primary Care Physician Encounter [facility] Date(s): 11/10/23 - 11/13/[address] [address]- Encounter Diagnosis Dysphagia(Final) - 11/10/23 Dementia(Final) - 11/10/23 Dementia(Final) - 11/13/23 Discharge Disposition: A-D/C Home Attending Physician: Neal Brannon MD Admitting Physician: Neal Brannon MD Referring Physician: Not on Staff, Referring MD Allergies, Adverse Reactions, Alerts No Known Allergies Immunizations Given and Recorded Vaccine Date Status Refusal Reason tetanus-diphtheria toxoids (Td) 04/15/22 Recorded SARS-CoV-2 (COVID-19) mRNA-1273 vaccine 02/13/21 R ecorded SARS-CoV-2 (COVID-19) mRNA-1273 vaccine 01/16/21 R ecorded pneumococcal 13-valent vaccine 1 07/10/19 Given 1Result Comment: [facility]: [id number] Medications atorvastatin 20 mg oral tablet 1 tablet = 20 mg, By Mouth, Daily at bedtime, # 90 tablet, 4 Refills, Maintenance, 06/01/22 11:51:00 EDT, Tablet, [facility], 170, cm, 06/01/22 11:50:00 EDT, Height, 74, kg, 02/04/22 5:20:00 EDT, Dry Weight Start Date: 06/01/22 Status: Ordered calcium and vitamin D combination 500 mg-200 iu oral tablet 1 tablet, By Mouth, 2 times a day, # 180 tablet, 2 Refills, Maintenance, 07/14/22 11:17:00 EDT, Tablet, [facility] 5278, Partial fill upon patient [...] 14:07:00 EST, Route to Pharmacy Electronically, [facility] 5278, Partial fill upon patient request if the prescription is for a schedule II opioid d... Start Date: 12/04/22 Status: Ordered lisinopril 20 mg oral tablet 1, tablet, By Mouth, Daily, # 90 tablet, Refills 0, Tot. Refills 0, Maintenance, 07/04/23 8:18:00 EDT, Route to Pharmacy Electronically, [facility] 1967, 170, cm, 12/04/22 14:06:00 EST, Height,74, kg, 02/04/22 5:20:00 EDT, Dry Weight Start Date: 07/04/23 Status: Ordered sertraline 50 mg oral tablet 1 tablet = 50 mg, By Mouth, Daily, # 90 tablet, 2 Refills, Maintenance, 07/14/22 11:26:00 EDT, Tablet, [facility] 5278, Partial fill upon patient [...] depressive disorder), recurrent episode, mild Confirmed Active Results Radiology Reports * Exam Date Time Procedure Performing Provider Status 11/10/23 7:[address] Chest W/ Contrast Huerta , Thuthao T; Auth (Verified) Notes: (CT Chest W/ Contrast) Reason For Exam: dysphagia;Other: RESULT: CT Chest W/ Contrast CT Chest W/ Contrast INDICATION: Hx of Present Illness: Confusion and difficulty swallowing that started 1 month ago.; Reason: Other:; dysphagia; Clinical Question(s): Other:; mass TECHNIQUE: Helical CT scan of the chest with IV contrast, formatted in 3 planes. cc of was administered intravenously. Weight-based protocol was performed using automatic exposure control. COMPARISON: None. FINDINGS: Automatic Spooler Operator view findings, lines and tubes: None. Trachea and airways: Patent without evidence of tracheal or endobronchial lesion. Lungs and pleura: Clear lungs. No effusion or pneumothorax. Mediastinum and jose r: No mass or hematoma. No mediastinal or hilar lymphadenopathy. No esophageal abnormality. No thyroid nodule large enough to warrant follow up. Heart: Heart is normal in size. No pericardial effusion. Aorta: No aortic aneurysm. Pulmonary arteries: Normal caliber. No evidence of pulmonary embolism on this study performed without angiographic technique. Chest wall soft tissues: No acute abnormality. Diaphragm: Intact. Upper abdomen: No significant abnormality. Bones: No acute abnormality. IMPRESSION: No acute abnormalities identified. No mediastinal mass. No esophageal abnormality or explanation for reported dysphagia. WSN: [id number] Ordering Physician: Facundo Islas Dictated By: Tadeo Blackwood MD Dictated Date/Time: 11/10/23 7:41 pm Reviewed By: Tadeo Blackwood MD Signed By: Tadeo Blackwood MD Signed Date/Time: 11/10/23 7:41 pm Transcribed By: MICHAELA Transcribed Date/Time: 11/10/23 7:38 pm * Exam Date Time Procedure Performing Provider Status 11/10/23 7:[address] Soft Tissue Neck W/ Contrast Huerta , Thuthao T; Auth (Verified) Notes: (CT Soft Tissue Neck W/ Contrast) Reason For Exam: Dysphagia;Other: RESULT: CT Soft Tissue Neck W/ Contrast CT Soft Tissue Neck W/ Contrast INDICATION/CLINICAL QUESTION: Hx of Present Illness: Confusion and difficulty swallowing that started 1 month ago.; Reason: Other:; Dysphagia; Clinical Question(s): Other:; mass / Other:. TECHNIQUE: Spiral CT neck with IV contrast formatted in 3 planes. 100 cc of Omnipaque 300 was administered intravenously. Weight-based protocol using automatic tube modulation was used to optimize exposure parameters. CTDIvol Body: 10.22 mGy, DLP Body: 782 mGy*cm. COMPARISON: FINDINGS: Automatic Spooler Operator View Findings, Lines and Tubes: None. Intracranial structures: Visualized portions are unremarkable. Orbits: Visualized portions are unremarkable. Paranasal sinuses and mastoids: Visualized portions are clear. Mucosal surfaces: Mucosal surfaces appear normal and symmetric, including the pharynx, larynx, and visualized portions of the upper trachea and esophagus. Superficial and deep neck spaces: No mass, fluid collection, or inflammatory change. Cervical lymph nodes: Normal in size and morphology. Salivary glands: The parotid glands and submandibular glands are normal. Thyroid gland: Normal CT appearance Vascular structures: Unremarkable. Upper chest: The upper lungs are clear. The upper mediastinum is unremarkable. Bones and teeth: No acute abnormalities. IMPRESSION: No mass, lymphadenopathy or abscess. WSN: [id number] Ordering Physician: aFcundo Islas Dictated By: Tadeo Blackwood MD Dictated Date/Time: 11/10/23 7:37 pm Reviewed By: Tadeo Blackwood MD Signed By: Tadeo Blackwood MD Signed Date/Time: 11/10/23 7:37 pm Transcribed By: MICHAELA Transcribed Date/Time: 11/10/23 7:30 pm Vital Signs Most recent to oldest [Reference Range]: 1 2 3 Height 170 cm (11/13/23 9:53 PM) 170 cm (11/13/23 6:24 PM) 170 cm (11/13/23 10:41 AM) Weight 87.3 kg (11/13/23 9:53 PM) 87.3 kg (11/13/23 6:24 PM) 87.3 kg (11/13/23 10:41 AM) Oxygen Saturation [94-100 %] 98 % (11/13/23 9:53 PM) 97 % (11/13/23 6:24 PM) 96 % (11/13/23 10:41 AM) Pulse Rate [55-90 bpm] 74 bpm (11/13/23 9:53 PM) 91 bpm *H* (11/13/23 6:24 PM) 76 bpm (11/13/23 10:41 AM) Body Mass Index [18.5-24.99 kg/m2] 30.21 kg/m2 *>HHI* (11/13/23 9:53 PM) 30.21 kg/m2 *>HHI* (11/13/23 6:24 PM) 30.21 kg/m2 *>HHI* (11/13/23 10:41 AM) Blood Pressure [90-138/55-84 mm Hg] 145/76mm Hg *H* (11/13/23 9:53 PM) 119/65mm Hg (11/13/23 6:24 PM) 143/67mm Hg *H* (11/13/23 10:41 AM) Respiratory Rate [16-30 br/min] 18 br/min (11/13/23 9:53 PM) 16 br/min (11/13/23 6:24 PM) 16 br/min (11/13/23 10:41 AM) Temperature [96.8-100.4 DegF] 98.6 DegF (11/13/23 9:53 PM) 97.5 DegF (11/13/23 6:16 AM) 97.6 DegF (11/12/23 10:28 PM) Mode of Delivery (Oxygen) Room air (11/13/23 9:53 PM) Room air (11/13/23 6:24 PM) Room air (11/13/23 10:41 AM) Blood pressure sites Arm, right (11/13/23 9:53 PM) Arm, left (11/13/23 6:24 PM) Arm, left (11/13/23 10:41 AM) Temperature Route Oral (11/13/23 9:53 PM) Oral (11/13/23 6:16 AM) Oral (11/12/23 10:28 PM) Dry Weight 87.3 kg (11/13/23 9:53 PM) 87.3 kg (11/13/23 6:24 PM) 87.3 kg (11/13/23 10:41 AM) Weight Obtained Via Standing scale (11/10/23 4:35 PM) Dry Weight Obtained Via Standing scale (11/10/23 4:35 PM) Social History Social History Type Response Smoking Status Former smoker, quit more than 30 days ago entered on: 12/30/20 Sex Female EKG study * Event Display: ECG 12-Lead Authored Date: Please click on pdf link to open report * Event Display: ECG 12-Lead Authored Date: Ventricular Rate: 80 BPM Atrial Rate: 80 BPM P-R Interval: 176 ms QRS Duration: 80 ms Q-T Interval: 382 ms QTC Calculation(Bazett): 440 ms R Dalton: 16 degrees T Dalton: 39 degrees Sinus rhythm with PACs Cannot rule out Anterior infarct (cited on or before 10-NOV-2023) Abnormal ECG When compared with ECG of 28-DEC-2021 22:48, No significant change was found Confirmed by STEPHANE NICHOLAS MD ([id number]) on 11/12/2023 8:59:10 PM Parmelee: STEPHANE NICHOLAS MD Consult note * Anna Schilling: PERFORM Event Display: Consultation Note Authored Date: [id number] Patient: ??ALONDRA MARROQUIN ? Age:??82 Years?Sex:??Female?:??1940?? Chief Complaint/Reason for Consultation ftt History of Present Illness Consult requested by: Dr. Vela Consult reason: medical management ER boarder ?? This is an 82 year old female with history of dementia, depression, remote alcohol abuse, T2DM, HLD, insomnia who presents with swallowing concerns. Her daughter is her primary caregiver. Noticed recently patient has been spitting up food that she is not swallowing. No felicity aspiration, coughing. She's been able to tolerate both liquids and solids most of the time. The daughter apparently recently lost her housing due to conflict with another family member, she's been renting AirBNBs and using up her savings. 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 Daughter was concerned she cannot care for her safely. ?? In the ER her vitals are stable. Labs are stable. UA bland, 3 WBCs, COVID/Flu/RSV negative. CT neckand chest shows no pathology that would be causing her dysphagia. She has been observed in the ER for three days while awaiting dispo, it seems she may need [facility] application in order to get placement in [facility]. ?? On my evaluation, she is resting in bed. Pleasantly confused. Has been eating well. She denies pain, dyspnea, chest pain, abdominal pain, vomiting or diarrhea. ?? Review of Systems Full ROS completed and is negative or as otherwise mentioned in the HPI. Objective Measurements?? Height: 170 cm (11/13/23) Weight: 87.3 kg (11/13/23) Dry Weight: 87.3 kg (11/13/23) Body Mass Index:??30.21 kg/m2??Critical (11/13/23) ? Vital Signs?? Temperature: 97.5 DegF (11/13/23 06:16:00) Temperature Route: Oral (11/13/23 06:16:00) Pulse Rate: 76 bpm (11/13/23 10:41:00) Respiratory Rate: 16 br/min (11/13/23 10:41:00) Systolic Blood Pressure:??143 mm Hg??High (11/13/23 10:41:00) Diastolic Blood Pressure: 67 mm Hg (11/13/23 10:41:00) Blood pressure sites: Arm, left (11/13/23 10:41:00) Mean Arterial Pressure: 92 mm Hg (11/13/23 10:41:00) Pulse Pressure: 76 mm Hg (11/13/23 10:41:00) Oxygen Saturation: 96 % (11/13/23 10:41:00) Mode of Delivery (Oxygen): Room air (11/13/23 10:41:00) ? Physical Exam ?General NAD, lying in bed sleeping, arouses easily, speaks in full sentences?HEENT??Moist mucous membranes, oropharynx clear without erythema or exudate?Lung??CTA bilaterally, no wheezes, rhonchi, or rales?Heart??regular rate and rhythm, no murmurs, gallops, or rubs?Abdomen soft, non-tender, non-distended, bowel sounds present?Extremities?? no clubbing, no cyanosis,??no pedal edema, peripheral pulses intact. ?Neurologic??Alert & oriented to person, place and situation (I need somewhere to live), moving all extremities, no gross focal deficits?Skin??warm and dry.? Psychiatry pleasantly confused Assessment/Plan Assessment:??This is an 82 year old female with history of dementia, depression, remote alcohol abuse, T2DM, HLD, insomnia who presents with swallowing concerns, though ultimately has been boarding in ER ?? Dementia (F03.90):?? was living in care of daughter prior to this case management has been consulted re: dispo conversations between senior leadership ongoing re: admit vs. ER boarder- we may be asked to admit tomorrow ?? Dysphagia (R13.10):??with what sounds like pocketing and spitting out food, in setting of dementia rather than mechanical issue. CT neck/chest show no acute pathology. Will request a speech evaluation while she is awaiting placement ?? Alcohol use (Z72.89):??no longer drinking, quit in 2021 ?? HTN (hypertension) (I10):??B P control has been reasonable on just the lisinopril 20mg if persistently high BPs, resume home hctz ?? Hyperlipidemia (E78.5):??continue statin ?? MDD (major depressive disorder), recurrent episode, mild (F33.0):??continue sertraline ?? VTE Prophylaxis:??I've observed her to be ambulatory in the ER. If for some reason prolonged bedbound state consider ppx ?? Histories Allergies Allergies ?(Active and Proposed Allergies Only) NKA? (Severity: Unknown severity, Onset: Unknown) ? Past Medical History/Problem List Active Problems??(18) Alcohol abuse Alcohol use Cognitive impairment History of fracture of right ankle History of total replacement of right ankle HTN (hypertension) Hyperlipidemia Impaired fasting glucose Insomnia Major depression MDD (major depressive disorder), recurrent episode, mild Memory loss Obese class I Obesity (BMI 30-39.9) Prediabetes ? Past Surgical History Repair of ankle Appendectomy ? Social History Alcohol Details:??Use: Current. ??Frequency: [...] (sertraline 50 mg oral tablet)?1?tab(s)?50?Milligram?By Mouth?Daily ? Results Recent Labs No labs resulted between 11/12/2023 00:00 and 11/13/2023 15:34? Note * Salud HO, Neal Rincon: PERFORM Event Display: Patient Education Leaflets Authored Date: [id number] Dysphagia (Adult) ?? [id number] Dysphagia (Adult) Dysphagia is??trouble swallowing.??If you have dysphagia, you may have symptoms that include: ??? Choking or coughing when you eat or drink ??? Food getting stuck ??? Drooling ??? Inability to swallow ??? Pain behind the breastbone after swallowing ??? Vomiting after you eat or drink ??? Inhaling into the lungs (aspirating) foods or liquids when you swallow The main causes of dysphagia are problems that affect the mouth, throat or tongue. Dysphagia may becaused by a problem with the tube (esophagus) that carries food from the mouth to the stomach. These include blockage, swelling, or irritation from acid reflux or injury. An infection of the esophagus or an allergic reaction in the esophagus can also cause dysphagia. Problems in the brain, such as a stroke or Parkinson disease, can affect the muscles that coordinate swallowing. Dysphagia is treated by treating the cause. Your healthcare provider may assess you using X-ray, special esophagus monitors, a fiber optic look at swallowing, or an upper endoscopy. This test uses a thin, lighted tube (catheter) sent through your mouth to the esophagus. You may be given medicine toreduce stomach acid or control muscle spasms. If the problem doesn't go away, you may have a procedure to widen (dilate) the esophagus.??If you have muscle or nerve problems, you may be advised to see a speech or occupational therapist. They??may give you exercises and instructions to help make eating safer. If you have an infection or allergic condition, your healthcare provide will prescribe medicine for it. Home care To help ease the symptoms of dysphagia: ??? Take any medicine you???ve been given exactly as directed. Ask for thickened liquid medicines if you need them. ??? To make eating easier: o Eat slowly.?? o Eat in a relaxed setting. o Don???t talk while you eat. o Take small bites. Chew slowly and completely before you swallow. o Sit upright during and after meals. Chewing food releases enzymes in yourmouth that start the digestive process. Chew soft foods at least 5 to10 times. Chew more dense foodsuch as meats and vegetables up to 30 times before swallowing. Count the number of times you chew until you get a sense of how soft the food needs to be before swallowing. o Don't eat dry bread products or meat fibers. o Puree solid foods if needed. Thicken liquids with milk, juice, broth, gravy, or starch to make them easier to swallow. o Ask your healthcare provider if a liquid diet may be better for you. o Ask for a referral to a vp [employer] if you are losing weight or having trouble getting enough food each day ?? Follow-up care Follow up with your healthcare provider or as directed. Your healthcare provider can give you information about tests you may need.? When to seek medical advice Call your healthcare provider right away for any of the following: ??? Inability to keep down food or liquid ??? Symptoms get worse quickly ??? Coughing that won't stop ??? Continuing to lose weight ??? Fever of 100.4??F (38??C) or higher, or as directed by your provider ??? Other symptoms as directed by your provider ?? Call 911 Call 911 for any of the following: ??? Trouble breathing ??? Inability to talk ??? Drooling, inability to control secretions ??? Loss of consciousness ?? Last Reviewed Date: 2021 ?? [id number] [employer]. All rights reserved. This information is not intended as a substitute for professional medical care. Always follow your healthcare professional's instructions. ?? Patient Care team information Care Team Personnel Name: Latrice Laguna NP Position: S PCO Associate Professional Member Role: PCP Address: Address: [address] [place] [address]- Care Team Related Persons Name: JD MARROQUIN
--- OUTSIDE RECORDS SUMMARY | 2024-08-29 12:25 | XMS_ITS | Continuity of Care Document ---
Author Organization [facility] Adult Address [address] [place] [address]- Care Team Providers Care Crystal Calibrator Name Role Phone Jase MANAGER SPECIALTY, Latrice Champagne Primary Care Physician [facility] [id number] Date(s): 08/17/20 - 09/30/20 [facility] Adult [address] [place] [address]- Attending Physician: Rashawn Dorsey MD Allergies, Adverse Reactions, Alerts Substance Reaction Severity Status NKA Active Immunizations Given and Recorded Vaccine Date Status Refusal Reason pneumococcal 13-valent vaccine 1 07/10/19 Given 1Result Comment: [facility]: [id number] Medications atorvastatin 20 mg oral tablet 1 [...]
--- OUTSIDE RECORDS SUMMARY | 2024-08-29 12:25 | XMS_ITS | Continuity of Care Document ---
Author Organization [facility] Adult Address [address] [place] [address]- Care Team Providers Care Store Specialist Name Role Phone Jase LEE, Latrice Champagne Primary Care Physician Encounter [facility] Date(s): 02/25/21 - 03/27/21 [facility] [address] [place] [address]- Allergies, Adverse Reactions, Alerts Substance Reaction Severity Status NKA Active Immunizations Given and Recorded Vaccine Date Status Refusal Reason SARS-CoV-2 (COVID-19) mRNA-1273 vaccine 02/13/21 R ecorded SARS-CoV-2 (COVID-19) mRNA-1273 vaccine 01/16/21 R ecorded pneumococcal 13-valent vaccine 1 07/10/19 Given 1Result Comment: [facility]: [id number] Medications atorvastatin 20 mg oral tablet 1 [...]
--- OUTSIDE RECORDS SUMMARY | 2024-08-29 12:25 | XMS_ITS | Continuity of Care Document ---
Author Organization [facility] Adult Address [address] [place] [address]- Care Team Providers Care Window Glass Installer Name Role Phone Jase TAPE RECORDER REPAIRER, Latrice Champagne Primary Care Physician [phone] [id number] Date([facility] 11/07/23 - 12/07/[address] [address]- Allergies, Adverse Reactions, Alerts No Known Allergies Immunizations Given and Recorded Vaccine Date Status Refusal Reason tetanus-diphtheria toxoids (Td) 04/15/22 Recorded SARS-CoV-2 (COVID-19) mRNA-1273 vaccine 02/13/21 R ecorded SARS-CoV-2 (COVID-19) mRNA-1273 vaccine 01/16/21 R ecorded pneumococcal 13-valent vaccine 1 07/10/19 Given 1Result Comment: [facility]: [id number] Medications calcium and vitamin D combination 500 mg-200 iu oral tablet 1 tablet, By Mouth, 2 times a day, # 180 tablet, 2 Refills, Maintenance, 07/14/22 11:17:00 EDT, Tablet, [id number], Partial fill upon patient [...] Team Personnel Name: Landy Hernández LPN Position: [facility] RN Member Role: Primary Care Nurse Name: Danika Wilkerson RN Position: S RN Member Role: Primary Care Nurse Name: Latrice Laguna NP Position: [facility] PCO Associate Professional Member Role: PCP Address: Address: [address] [place] [address] 3rd [place] [address]- Care Team Related Persons Name: JD MARROQUIN
--- OUTSIDE RECORDS SUMMARY | 2024-08-29 12:25 | XMS_ITS | Continuity of Care Document ---
Author Organization [facility] Adult Address [address] [place] [address]- Care Team Providers Care Driver Trainer Name Role Phone Jase MENTAL RETARDATION NURSE, Latrice Champagne Primary Care Physician [phone] Encounter [facility] Date(s): 12/26/23 - 01/25/[address] [address] Allergies, Adverse Reactions, Alerts No Known Allergies Immunizations Given and Recorded Vaccine Date Status Refusal Reason tetanus/diphtheria/pertussis, acel(Tdap) 12/10/23 Recorded tetanus-diphtheria toxoids (Td) 04/15/22 Recorded SARS-CoV-2 (COVID-19) mRNA-1273 vaccine 02/13/21 R ecorded SARS-CoV-2 (COVID-19) mRNA-1273 vaccine 01/16/21 R ecorded pneumococcal 13-valent vaccine 1 07/10/19 Given 1Result Comment: [facility]: [id number] Medications calcium and vitamin D combination 500 mg-200 iu oral tablet 1 tablet, By Mouth, 2 times a day, # 180 tablet, 2 Refills, Maintenance, 07/14/22 11:17:00 EDT, Tablet, [facility], Partial fill upon patient [...] 0 Refills, Maintenance, 12/24/23 16:40:00 EDT, Tablet, [id number], Partial fill upon patient request if the prescription is for a schedule II opioid drug., 169, cm, 12/24/23 16:10:00 EDT, Healexandra. Start Date: 12/24/23 Status: Ordered PARoxetine 10 mg oral tablet 10 mg, 1, tablet, By Mouth, Daily, # 90 tablet, Refills 0, Tot. Refills 0, Maintenance, 12/24/23 16:44:00 EDT, Route to Pharmacy Electronically, [facility] 1966, Partial fill upon patient [...] Team Personnel Name: Landy Hernández LPN Position: [facility] RN Member Role: Primary Care Nurse Name: Saba Gilbert Position: [facility] [place] Superintendent [employer] Member Role: Abstract Maker Name: Danika Wilkerson RN Position: [facility] RN Member Role: Primary Care Nurse Name: Latrice Laguna NP Position: [facility] PCO Associate Professional Member Role: PCP Address: Address: [address] [place] [address] [address] [place] [address]- Care Team Related Persons Name: JD MARROQUIN
--- OUTSIDE RECORDS SUMMARY | 2024-08-29 12:26 | XMS_ITS | Continuity of Care Document ---
Author Organization [facility] Adult Address [address] [place] [address]- Care Team Providers Care Surgical Processor Name Role Phone Latrice Laguna NP Primary Care Physician Encounter [facility] Date(s): 03/31/21 - 07/29/21 [facility] Adult [address] [place] [address]- Attending Physician: Latrice Laguna NP Allergies, Adverse Reactions, Alerts Substance Reaction Severity Status NKA Active Immunizations Given and Recorded Vaccine Date Status Refusal Reason SARS-CoV-2 (COVID-19) mRNA-1273 vaccine 02/13/21 R ecorded SARS-CoV-2 (COVID-19) mRNA-1273 vaccine 01/16/21 R ecorded pneumococcal 13-valent vaccine 1 07/10/19 Given 1Result Comment: [facility]: [id number] Medications atorvastatin 20 mg oral tablet 1 tablet = 20 mg, By Mouth, Daily at bedtime, # 90 tablet, 4 Refills, Maintenance, 12/30/20 10:23:00 EDT, Tablet, [facility]/pharmacy #[id number], 165, cm, 12/30/20 10:18:00 EDT, [...]
--- OUTSIDE RECORDS SUMMARY | 2024-08-29 12:26 | XMS_ITS | Continuity of Care Document ---
Author Organization [facility] Adult Address [address] [place] [address]- Care Team Providers Care Dental Technology Advisor Name Role Phone Jase ARTIFICIAL FOLIAGE ARRANGER, Latrice Champagne Primary Care Physician Encounter [facility] Date(s): 11/09/23 - 12/15/[address] [address]- Attending Physician: Not on Staff, Attending MD Allergies, Adverse Reactions, Alerts No Known Allergies Immunizations Given and Recorded Vaccine Date Status Refusal Reason tetanus-diphtheria toxoids (Td) 04/15/22 Recorded SARS-CoV-2 (COVID-19) mRNA-1273 vaccine 02/13/21 R ecorded SARS-CoV-2 (COVID-19) mRNA-1273 vaccine 01/16/21 R ecorded pneumococcal 13-valent vaccine 1 07/10/19 Given 1Result Comment: [facility]: [id number] Medications calcium and vitamin D combination 500 mg-200 iu oral tablet 1 tablet, By Mouth, 2 times a day, # 180 tablet, 2 Refills, Maintenance, 07/14/22 11:17:00 EDT, Tablet, [facility], Partial fill upon patient [...] Team Personnel Name: Landy Hernández LPN Position: [facility] RN Member Role: Primary Care Nurse Name: Saba Gilbert Position: [facility] [place] Outdoor Emergency Care Technician Member Role: Access Spec Name: Danika Wilkerson RN Position: [facility] RN Member Role: Primary Care Nurse Name: Latrice Laguna NP Position: [facility] PCO Associate Professional Member Role: PCP Address: Address: [address] [place] [address]- Care Team Related Persons Name: JD MARROQUIN
--- OUTSIDE RECORDS SUMMARY | 2024-08-29 12:26 | XMS_ITS | Continuity of Care Document ---
Author Organization [facility] Adult Address [address] [place] [address]- Care Team Providers Care Auto Slip Cover Installer Name Role Phone Jase LEE, Latrice Champagne Primary Care Physician [id number] Date[facility]s): 12/04/22 - 12/11/[address] [address]- Encounter Diagnosis Unsteady gait(Discharge Diagnosis) - 12/04/22 MDD (major depressive disorder), recurrent episode, mild(Discharge Diagnosis) - 12/04/22 HTN (hypertension)(Discharge Diagnosis) - 12/04/22 Attending Physician: Not on Staff, Attending MD Allergies, Adverse Reactions, Alerts No Known Allergies Immunizations Given and Recorded Vaccine Date Status Refusal Reason tetanus-diphtheria toxoids (Td) 04/15/22 Recorded SARS-CoV-2 (COVID-19) mRNA-1273 vaccine 02/13/21 R ecorded SARS-CoV-2 (COVID-19) mRNA-1273 vaccine 01/16/21 R ecorded pneumococcal 13-valent vaccine 1 07/10/19 Given 1Result Comment: [facility]: [id number] Medications atorvastatin 20 mg oral tablet 1 tablet = 20 mg, By Mouth, Daily at bedtime, # 90 tablet, 4 Refills, Maintenance, 06/01/22 11:51:00 EDT, Tablet, [facility], 170, cm, 06/01/22 11:50:00 EDT, Height, 74, kg, 02/04/22 5:20:00 EDT, Dry Weight Start Date: 06/01/22 Status: Ordered calcium and vitamin D combination 500 mg-200 iu oral tablet 1 tablet, By Mouth, 2 times a day, # 180 tablet, 2 Refills, Maintenance, 07/14/22 11:17:00 EDT, Tablet, [facility]278, Partial fill upon patient [...] 12/04/22 14:07:00 EST, Route to Pharmacy Electronically, [facility]278, Partial fill upon patient request if the prescription is for a schedule II opioid d... Start Date: 12/04/22 Status: Ordered quinapril 20 mg oral tablet 1 tablet = 20 mg, By Mouth, Daily, # 90 tablet, 3 Refills, Maintenance, 06/15/22 15:27:00 EDT, Tablet, [facility]278, Partial fill upon patient request if the prescription is for a schedule II opioid drug., 170, cm, 06/05/22 14:12:00 EDT, Heig... Start Date: 06/15/22 Status: Ordered sertraline 50 mg oral tablet 1 tablet = 50 mg, By Mouth, Daily, # 90 tablet, 2 Refills, Maintenance, 07/14/22 11:26:00 EDT, Tablet, [facility]278, Partial fill upon patient [...] depressive disorder), recurrent episode, mild Confirmed Active Diagnosis Diagnosis Type Effective Dates Health Status Clinical Service Informant Unsteady gait Discharge Diagnosis 12/04/22 MDD (major depressive disorder), recurrent episode, mild Discharge Diagnosis 12/04/22 HTN (hypertension) Discharge Diagnosis 12/04/22 Vital Signs Most recent to oldest [Reference Range]: 1 2 3 Height 170 cm (12/04/22 2:06 PM) 170 cm (12/04/22 1:51 PM) 170 cm (12/04/22 1:34 PM) Weight 82.0 kg (12/04/22 1:34 PM) Oxygen Saturation [94-100 %] 99 % (12/04/22 1:34 PM) Pulse Rate [55-90 bpm] 41 bpm *L* (12/04/22 1:34 PM) Body Mass Index [18.5-24.99 kg/m2] 28.37 kg/m2 *H* (12/04/22 1:34 PM) Blood Pressure [90-138/55-84 mm Hg] 170/80mm Hg *H* (12/04/22 2:06 PM) 180/84mm Hg *H* (12/04/22 1:51 PM) 176/112mm Hg *H* (12/04/22 1:34 PM) Blood pressure sites Arm, left (12/04/22 2:06 PM) Arm, right (12/04/22 1:51 PM) Arm, right (12/04/22 1:34 PM) Weight Obtained Via Standing scale (12/04/22 1:34 PM) Social History Social History Type Response Smoking Status Former smoker, quit more than 30 days ago entered on: 12/30/20 Sex Female Note * Anna Gomez: PERFORM, SIGN, VERIFY Event Display: Patient Education/Instruction Authored Date: [id number] [facility] Clinical Summary Name ALONDRA MARROQUIN Age 81 Years 1940 PCP Jase LEE, Latrice Champagne PCP Visit Date 12/04/2022 13:31:00 Additional Instructions: Scheduled Appointments?? Future Appointments ?*[facility] ?Phone:??--?Fax:??-- ?Appt. Date:??12/26/2022?1:30 PM ?Scheduled Provider:??[facility] Adult Med Clinical ?*[facility] ?[address],??[address] ?Phone:??--?Fax:??-- ?Appt. Date:??01/05/2023?3:50 PM ?Scheduled Provider:??Jase LEE, Latrice Champagne Follow-Up Instructions ?? Diagnosis Major depressive disorder, recurrent, mild; Unsteadiness on feet; Essential (primary) hypertension Medications: Please continue your medications until treatment is completed or stopped by your provider. Discuss any questions related to medications with your provider. New Medications [facility], [address] [place] [id number], [phone] Hydrochlorothiazide (hydrochlorothiazide 50 mg oral tablet) 1 tab(s) Oral Daily. Refills: 2. Next Dose: - Durable Medical Equipment (Cane) Cane- Dx Unseady gait. Refills: 0. Next Dose: Medications to Continue with No Changes These medications were not printed or sent to your pharmacy Atorvastatin (atorvastatin 20 mg oral tablet) 1 tab(s) Oral Daily at Bedtime. Refills: 4. Next Dose: Calcium And Vitamin D Combination (calcium and vitamin D combination 500 mg-200 iu oral tablet) 1 tab(s) Oral twice a day. Refills: 2. Next Dose: Quinapril (quinapril 20 mg oral tablet) 1 tab(s) Oral Daily. Refills: 3. Next Dose: Sertraline (sertraline 50 mg oral tablet) 1 tab(s) Oral Daily. Refills: 2. Next Dose: No Longer Take the Following Medications Trazodone (traZODone 50 mg oral tablet) 1 tab(s) Oral Daily at Bedtime as needed Insomnia. Refills:3. Allergy Info:?? NKA Medications Given This Visit Future Orders ?Complete Urinalysis/Reflex Culture? Order Date:12/04/22?- Complete on or after?12/04/22 ?Renal Panel? Order Date:12/04/22?- Complete on or after?12/04/22 Vital Signs Height 170 cm Weight 82.0 kg BMI 28.37 kg/m2 Blood Pressure 170 mm Hg/80 mm Hg Temperature Pulse Rate 41 bpm Respiratory Rate 02 Sat Mode of Delivery 99 %/ You can now view a summary of your hospital visit from the comfort of your home through a free online portal called [employer]ken. Kraken is a website that allows you to securely view your medical information including discharge summary, medications and follow-up visits. ??You can alsosend a secure electronic message to your doctor???s office to request appointments, renew medications or just ask a question. You can enroll at [email or web address] or register during your next [...] primary care provider, you may find a [facility] provider by calling [facility] MD [employer] [facility] at [phone]. For information about the plan of care [...] Team Personnel Name: Latrice Laguna NP Position: [facility] PCO Associate Professional Member Role: PCP Address: Address: [address]rd [place] [address]- Care Team Related Persons Name: JD MARROQUIN Address: home [address] [facility] [place] [address]
--- OUTSIDE RECORDS SUMMARY | 2024-08-29 12:26 | XMS_ITS | Continuity of Care Document ---
Author Organization [facility] ter Address [address] [place] [address]- Care Team Providers Care Traveling Accountant Name Role Phone Jase LEE, Latrice Champagne Primary Care Physician [phone] Encounter [facility] Date(s): 02/04/22 - 02/04/[address] [address]- Discharge Disposition: A-D/C Home Attending Physician: Valentino Vela MD Admitting Physician: Valentino Vela MD Referring Physician: Not on Staff, Referring MD Allergies, Adverse Reactions, Alerts No Known Allergies Immunizations Given and Recorded Vaccine Date Status Refusal Reason SARS-CoV-2 (COVID-19) mRNA-1273 vaccine 02/13/21 R ecorded SARS-CoV-2 (COVID-19) mRNA-1273 vaccine 01/16/21 R ecorded pneumococcal 13-valent vaccine 1 07/10/19 Given 1Result Comment: [facility]: [id number] Medications atorvastatin 20 mg oral tablet 1 tablet = 20 mg, By Mouth, Daily at bedtime, # 90 tablet, 4 Refills, Maintenance, 02/02/22 15:02:00 EDT, Tablet, [facility] #[id number], 165, cm, 02/02/22 15:00:00 EDT, Height Start [...] 0 Refills, Maintenance, 02/02/22 15:03:00 EDT, Tablet, [facility] #[id number], Partial fill upon patient request if the prescription is for a schedule II opioid drug., 165, cm, 02/02/22 15:00:00 EDT... Start Date: 02/02/22 Status: Ordered hydrochlorothiazide-quinapril 20 mg-25 mg oral tablet 1 tablet, By Mouth, Daily, for 90 days, # 90 tablet, 3 Refills, Hard Stop 04/26/22 15:00:00 EDT, 05/01/21 15:00:00 EDT, Tablet, [facility]acy #[id number], 165, cm, 12/30/20 10:18:00 EDT, Height Start Date: 05/01/21 Stop Date: 04/26/22 Status: Ordered hydrochlorothiazide-quinapril 20 mg-25 mg oral tablet 1 tablet, By Mouth, Daily, # 90 tablet, 3 Refills, Maintenance, 04/26/22 15:00:00 EDT, Tablet, [facility] #[id number], 1 tablet By Mouth Daily,x90 days, 165, [...] Range]: 1 2 3 Height 170 cm (02/04/22 5:20 AM) 170 cm (02/04/22 12:58 AM) Weight 74 kg (02/04/22 5:20 AM) 74 kg (02/04/22 12:58 AM) Oxygen Saturation [94-100 %] 98 % (02/04/22 1:32 PM) 97 % (02/04/22 5:20 AM) 96 % (02/04/22 12:55 AM) Pulse Rate [55-90 bpm] 94 bpm *H* (02/04/22 1:32 PM) 83 bpm (02/04/22 5:20 AM) 88 bpm (02/04/22 12:55 AM) Body Mass Index [18.5-24.99] 25.61 *H* (02/04/22 5:20 AM) Blood Pressure [90-138/55-84 mm Hg] 139/74mm Hg *H* (02/04/22 1:32 PM) 139/70mm Hg *H* (02/04/22 5:20 AM) 137/66mm Hg (02/04/22 12:55 AM) Respiratory Rate [16-30 br/min] 18 br/min (02/04/22 1:32 PM) 18 br/min (02/04/22 5:20 AM) 18 br/min (02/04/22 12:55 AM) Temperature [96.8-100.4 DegF] 97.8 DegF (02/04/22 5:20 AM) 97.8 DegF (02/04/22 12:55 AM) Mode of Delivery (Oxygen) Room air (02/04/22 1:32 PM) Room air (02/04/22 5:20 AM) Room air (02/04/22 12:55 AM) Blood pressure sites Arm, left (02/04/22 1:32 PM) Arm, left (02/04/22 5:20 AM) Arm, left (02/04/22 12:55 AM) Temperature Route Oral (02/04/22 5:20 AM) Oral (02/04/22 12:55 AM) Dry Weight 74 kg (02/04/22 5:20 AM) 74 kg (02/04/22 12:58 AM) Social History Social History Type Response Smoking Status Former smoker, quit more than 30 days ago entered on: 12/30/20 Sex Female
--- OUTSIDE RECORDS SUMMARY | 2024-08-29 12:26 | XMS_ITS | Continuity of Care Document ---
Author Organization [facility] Adult Address [address] [place] [address]- Care Team Providers Care Naval Designer Name Role Phone Jase WATER PURIFIER OPERATOR, Latrice Champagne Primary Care Physician [id number] Date(s): 01/26/22 - 02/25/22 [facility] Adult [address] [place] [address]- Allergies, Adverse Reactions, Alerts No Known Allergies Immunizations Given and Recorded Vaccine Date Status Refusal Reason SARS-CoV-2 (COVID-19) mRNA-1273 vaccine 02/13/21 R ecorded SARS-CoV-2 (COVID-19) mRNA-1273 vaccine 01/16/21 R ecorded pneumococcal 13-valent vaccine 1 07/10/19 Given 1Result Comment: [facility]: [id number] Medications atorvastatin 20 mg oral tablet 1 tablet = 20 mg, By Mouth, Daily at bedtime, # 90 tablet, 4 Refills, Maintenance, 02/02/22 15:02:00 EDT, [id number], 165, cm, 02/02/22 15:00:00 EDT, Height Start [...] 0 Refills, Maintenance, 02/02/22 15:03:00 EDT, Tablet, [facility] #[id number], Partial fill upon patient request if the prescription is for a schedule II opioid drug., 165, cm, 02/02/22 15:00:00 EDT... Start Date: 02/02/22 Status: Ordered hydrochlorothiazide-quinapril 20 mg-25 mg oral tablet 1 tablet, By Mouth, Daily, for 90 days, # 90 tablet, 3 Refills, Hard Stop 04/26/22 15:00:00 EDT, 05/01/21 15:00:00 EDT, Tablet, [facility]acy #[id number], 165, cm, 12/30/20 10:18:00 EDT, Height Start Date: 05/01/21 Stop Date: 04/26/22 Status: Ordered hydrochlorothiazide-quinapril 20 mg-25 mg oral tablet 1 tablet, By Mouth, Daily, # 90 tablet, 3 Refills, Maintenance, 04/26/22 15:00:00 EDT, Tablet, [facility] #[id number], 1 tablet By Mouth Daily,x90 days, 165, [...]
--- OUTSIDE RECORDS SUMMARY | 2024-08-29 12:26 | XMS_ITS | Continuity of Care Document ---
Author Organization [facility] Adult Address [address] [place] [address]- Care Team Providers Care Driver Engineer Name Role Phone Jase FARM EQUIPMENT ENGINEER, Latrice Champagne Primary Care Physician [phone] [place] [facility] [place](s): 03/27/22 - 04/26/22 [facility] Adult [address] [place] [address]- Allergies, Adverse Reactions, Alerts No Known Allergies Immunizations Given and Recorded Vaccine Date Status Refusal Reason SARS-CoV-2 (COVID-19) mRNA-1273 vaccine 02/13/21 R ecorded SARS-CoV-2 (COVID-19) mRNA-1273 vaccine 01/16/21 R ecorded pneumococcal 13-valent vaccine 1 07/10/19 Given 1Result Comment: [facility]: [id number] Medications atorvastatin 20 mg oral tablet 1 tablet = 20 mg, By Mouth, Daily at bedtime, # 90 tablet, 4 Refills, Maintenance, 02/02/22 15:02:00 EDT, Tablet, [facility] #[id number], 165, cm, 02/02/22 15:00:00 EDT, Height Start [...] tablet, 0 Refills, Maintenance, 02/02/22 15:03:00 EDT, [id number], Partial fill upon patient request if the prescription is for a schedule II opioid drug., 165, cm, 02/02/22 15:00:00 EDT... Start Date: 02/02/22 Status: Ordered hydrochlorothiazide-quinapril 20 mg-25 mg oral tablet 1 tablet, By Mouth, Daily, # 90 tablet, 3 Refills, Maintenance, 04/26/22 15:00:00 EDT, Tablet, [facility] #[id number], 1 tablet By Mouth Daily,x90 days, 165, [...]
--- OUTSIDE RECORDS SUMMARY | 2024-08-29 12:26 | XMS_ITS | Continuity of Care Document ---
Author Organization [facility] Adult Address [address] [place] [address]- Care Team Providers Care Computer Systems Designer Name Role Phone Jase LEE, Latrice Champagne Primary Care Physician [id number] Date(s): 12/30/21 - 02/01/22 [facility] Adult [address] [place] [address]- Attending Physician: Diamond Izaguirre NP Allergies, Adverse Reactions, Alerts No Known Allergies Immunizations Given and Recorded Vaccine Date Status Refusal Reason SARS-CoV-2 (COVID-19) mRNA-1273 vaccine 02/13/21 R ecorded SARS-CoV-2 (COVID-19) mRNA-1273 vaccine 01/16/21 R ecorded pneumococcal 13-valent vaccine 1 07/10/19 Given 1Result Comment: [facility]: [id number] Medications atorvastatin 20 mg oral tablet 1 tablet = 20 mg, By Mouth, Daily at bedtime, # 90 tablet, 4 Refills, Maintenance, 12/30/20 10:23:00 EDT, Tablet, [facility]/pharmacy #[id number], 165, cm, 12/30/20 10:18:00 EDT, Height [...]
--- OUTSIDE RECORDS SUMMARY | 2024-08-29 12:26 | XMS_ITS | Continuity of Care Document ---
Author Organization [facility] Adult Address [address] [place] [address]- Care Team Providers Care Enamel Sprayer Name Role Phone Jase LEE, Latrice Champagne Primary Care Physician [place] [facility] [place] 12/22/[place] - 12/29/[address] [address]- [facility] Encounter Diagnosis Medicare annual wellness visit, subsequent(Discharge Diagnosis) - 12/22/19 HTN (hypertension)(Discharge Diagnosis) - 12/22/19 Hyperlipidemia(Discharge Diagnosis) - 12/22/19 Impaired fasting glucose(Discharge Diagnosis) - 12/22/19 Obesity (BMI 30-39.9)(Discharge Diagnosis) - 12/22/19 Prediabetes(Discharge Diagnosis) - 12/22/19 Advanced directives, counseling/discussion(Discharge Diagnosis) - 12/22/19 Attending Physician: Shahida Beebe MD Allergies, Adverse Reactions, Alerts Substance Reaction Severity Status NKA Active Immunizations Given and Recorded Vaccine Date Status Refusal Reason pneumococcal 13-valent vaccine 1 07/10/19 Given 1Result Comment: [facility]: [id number] Medications atorvastatin 20 mg oral tablet 1 tablet = 20 mg, By Mouth, Daily at bedtime, # 90 tablet, 1 Refills, Maintenance, 11/06/19 12:19:00 EST, Tablet, [id number], 165, cm, 07/10/19 11:34:00 EDT, Height Start Date: 11/06/19 Status: Ordered calcium and vitamin D combination 500 mg-200 iu oral tablet 1 tablet, By Mouth, 2 times a day, # 60 tablet, 0 Refills, Maintenance, 05/01/18 12:56:40 EDT, Tablet Start Date: 05/01/18 Status: Ordered hydrochlorothiazide-quinapril 20 mg-25 mg oral tablet 1 tablet, By Mouth, Daily, # 90 tablet, 2 Refills, Maintenance, 07/10/19 11:50:26 EDT, Tablet, 1 tablet By Mouth Daily Start Date: 07/10/19 Status: Ordered Knee Support See Instructions, # [...] Medicare annual wellness visit, subsequent Discharge Diagnosis 12/22/19 HTN (hypertension) Discharge Diagnosis 12/22/19 Hyperlipidemia Discharge Diagnosis 12/22/19 Impaired fasting glucose Discharge Diagnosis 12/22/19 Obesity (BMI 30-39.9) Discharge Diagnosis 12/22/19 Prediabetes Discharge Diagnosis 12/22/19 Advanced directives, counseling/discussio n Discharge Diagnosis 12/22/19 Vital Signs Most recent to oldest [Reference Range]: 1 2 Height 165 cm (12/22/19 3:48 PM) 165 cm (12/22/19 2:45 PM) Weight 91.5 kg (12/22/19 2:45 PM) Oxygen Saturation [94-100 %] 90 % *L* (12/22/19 2:45 PM) Pulse Rate [55-90 bpm] 49 bpm *L* (12/22/19 2:45 PM) Body Mass Index [18.5-24.99] 33.61 *>HHI* (12/22/19 2:45 PM) Blood Pressure [90-138/55-84 mm Hg] 130/ 70mm Hg (12/22/19 3:48 PM) 158/70mm Hg *H* (12/22/19 2:45 PM) Respiratory Rate [16-30 br/min] 16 br/mi n (12/22/19 2:45 PM) Temperature [96.8-100.4 DegF] 97.9 DegF (12/22/19 2:45 PM) Mode of Delivery (Oxygen) Room air (12/22/19 2:45 PM) Blood pressure sites Arm, left (12/22/19 3:48 PM) Arm, right (12/22/19 2:45 PM) Temperature Route Oral (12/22/19 2:45 PM) Weight Obtained Via Standing scale (12/22/19 2:45 PM) Social History Social History Type Response Smoking Status Never smoker entered on: 05/01/18 Sex
--- OUTSIDE RECORDS SUMMARY | 2024-08-29 12:26 | XMS_ITS | Continuity of Care Document ---
Author Organization [facility] Adult Address [address] [place] [address]- Care Team Providers Care Metal Patternmaker Name Role Phone Jase LEE, Latrice Champagne Primary Care Physician [phone] [id number] Date(s): 06/01/22 - 07/16/[address] [address]- Attending Physician: Not on Staff, Attending MD Allergies, Adverse Reactions, Alerts No Known Allergies Immunizations Given and Recorded Vaccine Date Status Refusal Reason tetanus-diphtheria toxoids (Td) 04/15/22 Recorded SARS-CoV-2 (COVID-19) mRNA-1273 vaccine 02/13/21 R ecorded SARS-CoV-2 (COVID-19) mRNA-1273 vaccine 01/16/21 R ecorded pneumococcal 13-valent vaccine 1 07/10/19 Given 1Result Comment: [facility]: [id number] Medications atorvastatin 20 mg oral tablet 1 tablet = 20 mg, By Mouth, Daily at bedtime, # 90 tablet, 4 Refills, Maintenance, 06/01/22 11:51:00 EDT, Tablet, [id number], 170, cm, 06/01/22 11:50:00 EDT, Height, 74, kg, 02/04/22 5:20:00 EDT, Dry Weight Start Date: 06/01/22 Status: Ordered calcium and vitamin D combination 500 mg-200 iu oral tablet 1 tablet, By Mouth, 2 times a day, # 180 tablet, 2 Refills, Maintenance, 07/14/22 11:17:00 EDT, Tablet, [id number], Partial fill upon patient request if the prescription is for a schedule II opioid drug., 1 tablet By Mouth 2 times a day, 17... Start Date: 07/14/22 Status: Ordered hydrochlorothiazide 25 mg oral tablet 25 mg, 1, tablet, By Mouth, Daily, # 90 tablet, Refills 3, Tot. Refills 3, Maintenance, 06/15/22 15:27:00 EDT, Route to Pharmacy Electronically, [id number], Partial fill upon patient request if the prescription is for a schedule II opioid d... Start Date: 06/15/22 Status: Ordered quinapril 20 mg oral tablet 1 tablet = 20 mg, By Mouth, Daily, # 90 tablet, 3 Refills, Maintenance, 06/15/22 15:27:00 EDT, Tablet, [facility], Partial fill upon patient request if the prescription is for a schedule II opioid drug., 170, cm, 06/05/22 14:12:00 EDT, Heig... Start Date: 06/15/22 Status: Ordered sertraline 50 mg oral tablet 1 tablet = 50 mg, By Mouth, Daily, # 90 tablet, 2 Refills, Maintenance, 07/14/22 11:26:00 EDT, Tablet, [facility], Partial fill upon patient request if the prescription is for a schedule II opioid drug., 170, cm, 07/14/22 10:53:00 EDT, Heig... Start Date: 07/14/22 Status: Ordered traZODone 50 mg oral tablet 50 mg, 1, tablet, By Mouth, Daily at bedtime, PRN, # 30 tablet, Refills 3, Tot. Refills 3, Maintenance, Insomnia, 07/14/22 11:08:00 EDT, Route to Pharmacy Electronically, [id number], Partial fill upon patient request if the prescription is... Start Date: 07/14/22 Status: Ordered Problem List Condition Confirmation Course Effective Dates Status H ealth Status Informant Alcohol abuse Confirmed Active Memory loss Confirmed [...] 12/30/20 Sex Female Patient Care team information Personnel Name: Latrice Laguna NP Address: Address: [address] [place] [id number]
--- OUTSIDE RECORDS SUMMARY | 2024-08-29 12:26 | XMS_ITS | Continuity of Care Document ---
Author Organization [facility] Adult Address [address] [place] [address]- Care Team Providers Care Phlebotomist Supervisor/Instructor Name Role Phone Jase LEE, Latrice Champagne Primary Care Physician [phone] [place] [facility] [place] Date(s): 05/13/20 - 06/12/20 [facility] Adult [address] [place] [address] [facility] Allergies, Adverse Reactions, Alerts Substance Reaction Severity Status NKA Active Immunizations Given and Recorded Vaccine Date Status Refusal Reason pneumococcal 13-valent vaccine 1 07/10/19 Given 1Result Comment: [facility]: [id number] Medications atorvastatin 20 mg oral tablet 1 [...]
--- OUTSIDE RECORDS SUMMARY | 2024-08-29 12:26 | XMS_ITS | Continuity of Care Document ---
Author Organization [facility] Adult Address [address] [place] [address]- Care Team Providers Care Scientific Process Operator Name Role Phone Jase LEE, Latrice Champagne Primary Care Physician [place] [facility] [place] 07/[place]/20 [facility] Adult [address] [place] [address] [facility] Encounter Diagnosis HTN (hypertension)(Discharge Diagnosis) - 06/24/20 Hyperlipidemia(Discharge Diagnosis) - 06/24/20 Impaired fasting glucose(Discharge Diagnosis) - 06/24/20 Obesity (BMI 30-39.9)(Discharge Diagnosis) - 06/24/20 Prediabetes(Discharge Diagnosis) - 06/24/20 Advanced care planning/counseling discussion(Discharge Diagnosis) - 06/24/20 Attending Physician: Not on Staff, Attending MD Allergies, Adverse Reactions, Alerts Substance Reaction Severity Status NKA Active Immunizations Given and Recorded Vaccine Date Status Refusal Reason pneumococcal 13-valent vaccine 1 07/10/19 Given 1Result Comment: [facility]: [id number] Medications atorvastatin 20 mg oral tablet 1 [...] Effective Dates Health Status Clinical Service Informant HTN (hypertension) Discharge Diagnosis 06/24/20 Hyperlipidemia Discharge Diagnosis 06/24/20 Impaired fasting glucose Discharge Diagnosis 06/24/20 Obesity (BMI 30-39.9) Discharge Diagnosis 06/24/20 Prediabetes Discharge Diagnosis 06/24/20 Advanced care planning/counseling discussion Discharge Diagnosis 06/24/20 Vital Signs Most recent to oldest [Reference Range]: 1 Height 165 cm (06/24/20 9:51 AM) Weight 93.4 kg (06/24/20 9:51 AM) Oxygen Saturation [94-100 %] 98 % (06/24/20 9:51 AM) Pulse Rate [55-90 bpm] 83 bpm (06/24/20 9:51 AM) Body Mass Index [18.5-24.99] 34.31 *>HHI* (06/24/20 9:51 AM) Blood Pressure [90-138/55-84 mm Hg] 120/ 60mm Hg (06/24/20 9:51 AM) Respiratory Rate [16-30 br/min] 16 br/mi n (06/24/20 9:51 AM) Mode of Delivery (Oxygen) Room air (06/24/20 9:51 AM) Blood pressure sites Arm, right (06/24/20 9:51 AM) Weight Obtained Via Standing scale (06/24/20 9:51 AM) Social History Social History Type Response Smoking Status Never smoker entered on: 05/01/18 Sex
--- OUTSIDE RECORDS SUMMARY | 2024-08-29 12:26 | XMS_ITS | Continuity of Care Document ---
Author Organization [facility] Address [address] [place] [address]- Care Team Providers Care Dry Starch Supervisor Name Role Phone Latrice Laguna NP Primary Care Physician [id number] Date(s): 06/05/22 - 06/12/22 [facility] [address] [place] [address]- Attending Physician: Shahida Beebe MD Referring Physician: Latrice Laguna NP Allergies, Adverse Reactions, Alerts No Known Allergies Immunizations Given and Recorded Vaccine Date Status Refusal Reason tetanus-diphtheria toxoids (Td) 04/15/22 Recorded SARS-CoV-2 (COVID-19) mRNA-1273 vaccine 02/13/21 R ecorded SARS-CoV-2 (COVID-19) mRNA-1273 vaccine 01/16/21 R ecorded pneumococcal 13-valent vaccine 1 07/10/19 Given 1Result Comment: [facility]: [id number] Medications atorvastatin 20 mg oral tablet 1 tablet = 20 mg, By Mouth, Daily at bedtime, # 90 tablet, 4 Refills, Maintenance, 06/01/22 11:51:00 EDT, Tablet, [facility], 170, cm, 06/01/22 11:50:00 [...] 3 Refills, Maintenance, 04/21/23 15:00:00 EDT, Tablet, [facility], 1 tablet By Mouth Daily,x90 days, 170, cm, 06/01/22 11:50:00 EDT, Height, 74, kg,02/04/22 5:20:00 EDT, Dry Weight Start Date: 04/21/23 Stop Date: 04/15/24 Status: Ordered hydrochlorothiazide-quinapril 20 mg-25 mg oral tablet 1 tablet, By Mouth, Daily, for 90 days, # 90 tablet, 3 Refills, Hard Stop 04/21/23 15:00:00 EDT, 04/26/22 15:00:00 EDT, Tablet, [id number], 165, cm, 02/02/22 15:00:00 EDT, Height Start Date: 04/26/22 Stop Date: 04/21/23 Status: Ordered sertraline 25 mg oral tablet 1 tablet = 25 mg, By Mouth, Daily, # 90 tablet, 0 Refills, Maintenance, 06/01/22 11:50:00 EDT, Tablet, [facility], Partial fill upon patient request if the prescription is for a schedule II opioid drug., 170, cm, 06/01/22 11:50:00 EDT, Heig... Start Date: 06/01/22 Status: Ordered traZODone 50 mg oral tablet 25 mg, 0.5, tablet, By Mouth, Daily at bedtime, PRN, # 15 tablet, Refills 0, Tot. Refills 0, Maintenance, Insomnia, 06/01/22 11:51:00 EDT, Route to Pharmacy Electronically, [facility], Partial fill upon [...] recent to oldest [Reference Range]: 1 Height 170 cm (06/05/22 2:12 PM) Social History Social History Type Response Smoking Status Former smoker, quit more than 30 days ago entered on: 12/30/20 Sex Female Care Team Personnel Name: Latrice Laguna NP Address: [address] [place] [address] [address] [place], [place] [address]
--- OUTSIDE RECORDS SUMMARY | 2024-08-29 12:26 | XMS_ITS | Continuity of Care Document ---
Author Organization [facility] Adult Address [address] [place] [address]- Care Team Providers Care Directional Survey Drafter Name Role Phone Jase LEE, Latrice Champagne Primary Care Physician [place] [facility] [place]/12/19 - 12/10/19 [facility] Adult [address] [place] [address]- [facility] Attending Physician: Not on Staff, Attending MD Allergies, Adverse Reactions, Alerts Substance Reaction Severity Status NKA Active Immunizations Given and Recorded Vaccine Date Status Refusal Reason pneumococcal 13-valent vaccine 1 07/10/19 Given 1Result Comment: [facility]: [id number] Medications atorvastatin 20 mg oral tablet 1 [...] Status Inform ant Obesity (BMI 30-39.9)(Confirmed) Active History of total replacement of right ankle(Confirmed) Active History of fracture of right ankle(Confirmed) Active Hyperlipidemia(Confirmed) Active HTN (hypertension)(Confirmed) Active Impaired fasting glucose(Confirmed) Active Left knee DJD(Confirmed) Active Prediabetes(Confirmed) Active Social History Social History Type Response Smoking Status Never smoker entered on: 05/01/18 Sex
--- OUTSIDE RECORDS SUMMARY | 2024-08-29 12:26 | XMS_ITS | Continuity of Care Document ---
Author Organization [facility] Adult Address [address] [place] [address]- Care Team Providers Care College Coach Name Role Phone Jase LEE, Latrice Champagne Primary Care Physician [phone] [facility] [place] Date(s): 12/03/23 - 01/04/[address] [address]- Attending Physician: Not on Staff, Attending MD Allergies, Adverse Reactions, Alerts No Known Allergies Immunizations Given and Recorded Vaccine Date Status Refusal Reason tetanus/diphtheria/pertussis, acel(Tdap) 12/10/23 Recorded tetanus-diphtheria toxoids (Td) 04/15/22 Recorded SARS-CoV-2 (COVID-19) mRNA-1273 vaccine 02/13/21 R ecorded SARS-CoV-2 (COVID-19) mRNA-1273 vaccine 01/16/21 R ecorded pneumococcal 13-valent vaccine 1 07/10/19 Given 1Result Comment: [facility]: [id number] Medications calcium and vitamin D combination 500 mg-200 iu oral tablet 1 tablet, By Mouth, 2 times a day, # 180 tablet, 2 Refills, Maintenance, 07/14/22 11:17:00 EDT, Tablet, [facility], Partial fill upon patient [...] 0 Refills, Maintenance, 12/24/23 16:40:00 EDT, Tablet, [facility], Partial fill upon patient request if the prescription is for a schedule II opioid drug., 169, cm, 12/24/23 16:10:00 EDT, Healexandra. Start Date: 12/24/23 Status: Ordered PARoxetine 10 mg oral tablet 10 mg, 1, tablet, By Mouth, Daily, # 90 tablet, Refills 0, Tot. Refills 0, Maintenance, 12/24/23 16:44:00 EDT, Route to Pharmacy Electronically, [facility], Partial fill upon patient [...] Team Personnel Name: Landy Hernández LPN Position: [facility] RN Member Role: Primary Care Nurse Name: Saba Gilbert Position: [facility] [place] Dramatic Coach Member Role: Sack Cleaning Hand Name: Rhea CANALES, Danika Position: S RN Member Role: Primary Care Nurse Name: Latrice Laguna NP Position: [facility] PCO Associate Professional Member Role: PCP Address: Address: [address] [place] [address] [address] [place] [address]- Care Team Related Persons Name: JD MARROQUIN
--- OUTSIDE RECORDS SUMMARY | 2024-08-29 12:26 | XMS_ITS | Continuity of Care Document ---
Author Organization [facility] Adult Address [address] [place] [address]- Care Team Providers Care Supervisor Telephone Information Name Role Phone Jase LEE, Latrice Champagne Primary Care Physician [phone] [id number] Date(s): 07/14/22 - 07/21/[address] [address]- Encounter Diagnosis Cognitive impairment(Discharge Diagnosis) - 07/14/22 Attending Physician: Not on Staff, Attending MD Allergies, Adverse Reactions, Alerts No Known Allergies Immunizations Given and Recorded Vaccine Date Status Refusal Reason tetanus-diphtheria toxoids (Td) 04/15/22 Recorded SARS-CoV-2 (COVID-19) mRNA-1273 vaccine 02/13/21 R ecorded SARS-CoV-2 (COVID-19) mRNA-1273 vaccine 01/16/21 R ecorded pneumococcal 13-valent vaccine 1 07/10/19 Given 1Result Comment: [facility]: [id number] Medications atorvastatin 20 mg oral tablet 1 tablet = 20 mg, By Mouth, Daily at bedtime, # 90 tablet, 4 Refills, Maintenance, 06/01/22 11:51:00 EDT, Tablet, [facility], 170, cm, 06/01/22 11:50:00 EDT, Height, 74, kg, 02/04/22 5:20:00 EDT, Dry Weight Start Date: 06/01/22 Status: Ordered calcium and vitamin D combination 500 mg-200 iu oral tablet 1 tablet, By Mouth, 2 times a day, # 180 tablet, 2 Refills, Maintenance, 07/14/22 11:17:00 EDT, Tablet, [facility], Partial fill upon patient request if the prescription is for a schedule II opioid drug., 1 tablet By Mouth 2 times a day, 17... Start Date: 07/14/22 Status: Ordered hydrochlorothiazide 25 mg oral tablet 25 mg, 1, tablet, By Mouth, Daily, # 90 tablet, Refills 3, Tot. Refills 3, Maintenance, 06/15/22 15:27:00 EDT, Route to Pharmacy Electronically, [facility], Partial fill upon patient request if the prescription is for a schedule II opioid d... Start Date: 06/15/22 Status: Ordered quinapril 20 mg oral tablet 1 tablet = 20 mg, By Mouth, Daily, # 90 tablet, 3 Refills, Maintenance, 06/15/22 15:27:00 EDT, Tablet, [facility], Partial fill upon patient request if the prescription is for a schedule II opioid drug., 170, cm, 06/05/22 14:12:00 EDT, Heig... Start Date: 06/15/22 Status: Ordered sertraline 50 mg oral tablet 1 tablet = 50 mg, By Mouth, Daily, # 90 tablet, 2 Refills, Maintenance, 07/14/22 11:26:00 EDT, Tablet, [facility] [...] 07/14/22 11:08:00 EDT, Route to Pharmacy Electronically, [facility], [...] Effective Dates Health Status Clinical Service Informant Cognitive impairment Discharge Diagnosis 07/14/22 Vital Signs Most recent to oldest [Reference Range]: 1 2 3 Height 170 cm (07/14/22 12:06 PM) 170 cm (07/14/22 11:26 AM) 170 cm (07/14/22 10:53 AM) Weight 81.9 kg (07/14/22 11:26 AM) 81.9 kg (07/14/22 10:53 AM) Oxygen Saturation [94-100 %] 98 % (07/14/22 10:53 AM) Pulse Rate [55-90 bpm] 73 bpm (07/14/22 12:06 PM) 49 bpm *L* (07/14/22 10:53 AM) Body Mass Index [18.5-24.99 kg/m2] 28.34 kg/m2 *H* (07/14/22 10:53 AM) Blood Pressure [90-138/55-84 mm Hg] 130/70mm Hg (07/14/22 10:53 AM) Mode of Delivery (Oxygen) Room air (07/14/22 10:53 AM) Blood pressure sites Arm, right (07/14/22 10:53 AM) Weight Obtained Via [place] (07/14/22 10:53 AM) Social History Social History Type Response Smoking Status Former smoker, quit more than 30 days ago entered on: 12/30/20 Sex Female Patient Care team information Personnel Name: Latrice Laguna NP Address: Address: [address] [facility] [address] [place], [place] [address]
--- OUTSIDE RECORDS SUMMARY | 2024-08-29 12:26 | XMS_ITS | Continuity of Care Document ---
Author Organization [facility] Adult Address [address] [place] [address]- Care Team Providers Care Director Women Name Role Phone Jase LEE, Latrice Champagne Primary [facility] Phys[id number] 12[facility]31[facility]20 - 01/30/21 [facility] Adult [address] [place] [address]- Allergies, Adverse Reactions, Alerts Substance Reaction Severity Status NKA Active Immunizations Given and Recorded Vaccine Date Status Refusal Reason SARS-CoV-2 (COVID-19) mRNA-1273 vaccine 01/16/21 R ecorded pneumococcal 13-valent vaccine 1 07/10/19 Given 1Result Comment: [facility]: [id number] Medications atorvastatin 20 mg oral tablet 1 [...]
--- OUTSIDE RECORDS SUMMARY | 2024-08-29 12:26 | XMS_ITS | Continuity of Care Document ---
Author Organization [facility] Adult Address [address] [place] [address]- Care Team Providers Care Weather Stripper Name Role Phone Latrice Laguna NP Primary Care Physician [phone] [place] [facility] [place] Date(s): 06/29/21 - 09/03/21 [facility] Adult [address] [place] [address]- Attending Physician: Latrice Laguna NP Allergies, Adverse Reactions, Alerts Substance Reaction Severity Status NKA Active Immunizations Given and Recorded Vaccine Date Status Refusal Reason SARS-CoV-2 (COVID-19) mRNA-1273 vaccine 02/13/21 R ecorded SARS-CoV-2 (COVID-19) mRNA-1273 vaccine 01/16/21 R ecorded pneumococcal 13-valent vaccine 1 07/10/19 Given 1Result Comment: [facility]: [id number] Medications atorvastatin 20 mg oral tablet 1 tablet = 20 mg, By Mouth, Daily at bedtime, # 90 tablet, 4 Refills, Maintenance, 12/30/20 10:23:00 EDT, Tablet, [facility] #[id number], 165, cm, 12/30/20 10:18:00 EDT, [...]
--- OUTSIDE RECORDS SUMMARY | 2024-08-29 12:26 | XMS_ITS | Continuity of Care Document ---
Author Organization [facility] ter Address [address] [place] [address]- Care Team Providers Care Manager Bridge Name Role Phone Jase FUR PLUCKER, Latrice Champagne [id number] Date[facility] - 03/06/[address] [address]- Attending Physician: Not on Staff, Attending MD Admitting Physician: Not on Staff, Admitting MD Referring Physician: Not on Staff, Referring MD Allergies, Adverse Reactions, Alerts No Known Allergies Immunizations Given and Recorded Vaccine Date Status Refusal Reason SARS-CoV-2 (COVID-19) mRNA-1273 vaccine 02/13/21 R ecorded SARS-CoV-2 (COVID-19) mRNA-1273 vaccine 01/16/21 R ecorded pneumococcal 13-valent vaccine 1 07/10/19 Given 1Result Comment: [facility]: [id number] Medications atorvastatin 20 mg oral tablet 1 tablet = 20 mg, By Mouth, Daily at bedtime, # 90 tablet, 4 Refills, Maintenance, 02/02/22 15:02:00 EDT, Tablet, [facility] #[id number], 165, cm, 02/02/22 15:00:00 EDT, Height Start [...] 0 Refills, Maintenance, 02/02/22 15:03:00 EDT, Tablet, [facility] #[id number], Partial fill upon patient request if the prescription is for a schedule II opioid drug., 165, cm, 02/02/22 15:00:00 EDT... Start Date: 02/02/22 Status: Ordered hydrochlorothiazide-quinapril 20 mg-25 mg oral tablet 1 tablet, By Mouth, Daily, for 90 days, # 90 tablet, 3 Refills, Hard Stop 04/26/22 15:00:00 EDT, 05/01/21 15:00:00 EDT, Tablet, [facility] #[id number], 165, cm, 12/30/20 10:18:00 EDT, Height Start Date: 05/01/21 Stop Date: 04/26/22 Status: Ordered hydrochlorothiazide-quinapril 20 mg-25 mg oral tablet 1 tablet, By Mouth, Daily, # 90 tablet, 3 Refills, Maintenance, 04/26/22 15:00:00 EDT, Tablet, [facility] #[id number], 1 tablet By Mouth Daily,x90 days, 165, [...]
--- OUTSIDE RECORDS SUMMARY | 2024-08-29 12:27 | XMS_ITS | Continuity of Care Document ---
Author Organization [facility] Adult Address [address] [place] [address]- Care Team Providers Care Publications Editor Name Role Phone Jase ADVERTISING DISPLAY ROTATOR, Latrice Champagne Primary Care Physician Encounter [facility] [place] Date(s): 12/10/23 - 01/09/[address] [address] Allergies, Adverse Reactions, Alerts No Known Allergies Immunizations Given and Recorded Vaccine Date Status Refusal Reason tetanus/diphtheria/pertussis, acel(Tdap) 12/10/23 Recorded tetanus-diphtheria toxoids (Td) 04/15/22 Recorded SARS-CoV-2 (COVID-19) mRNA-1273 vaccine 02/13/21 R ecorded SARS-CoV-2 (COVID-19) mRNA-1273 vaccine 01/16/21 R ecorded pneumococcal 13-valent vaccine 1 07/10/19 Given 1Result Comment: [facility]: [id number] Medications calcium and vitamin D combination 500 mg-200 iu oral tablet 1 tablet, By Mouth, 2 times a day, # 180 tablet, 2 Refills, Maintenance, 07/14/22 11:17:00 EDT, Tablet, [facility], Partial fill upon patient [...] 0 Refills, Maintenance, 12/24/23 16:40:00 EDT, Tablet, [facility] 1966, Partial fill upon patient request if the prescription is for a schedule II opioid drug., 169, cm, 12/24/23 16:10:00 EDT, Healexandra. Start Date: 12/24/23 Status: Ordered PARoxetine 10 mg oral tablet 10 mg, 1, tablet, By Mouth, Daily, # 90 tablet, Refills 0, Tot. Refills 0, Maintenance, 12/24/23 16:44:00 EDT, Route to Pharmacy Electronically, [facility] 1966, Partial fill upon patient [...] Team Personnel Name: Landy Hernández LPN Position: [facility] RN Member Role: Primary Care Nurse Name: Saba Gilbert Position: [facility] [place] Celebrity Chef Entrepreneur Media Personality Member Role: Legal Librarian Name: Danika Wilkerson RN Position: [facility] RN Member Role: Primary Care Nurse Name: Latrice Laguna NP Position: [facility] PCO Associate Professional Member Role: PCP Address: Address: [address] [place] [address] [address] [place] [address]- Care Team Related Persons Name: JD MARROQUIN
--- OUTSIDE RECORDS SUMMARY | 2024-08-29 12:27 | XMS_ITS | Continuity of Care Document ---
Author Organization [facility] Adult Address [address] [place] [address]- Care Team Providers Care Process Pumper Name Role Phone Jase CONCRETE CURER, Latrice Champagne Primary Care Physician [id number] Date[facility]): 04/04/24 - 08/02/[address] [address]- Attending Physician: Not on Staff, Attending MD Allergies, Adverse Reactions, Alerts Substance Reaction Severity Status lisinopril Angioedema Severe Active Immunizations Given and Recorded Vaccine Date Status Refusal Reason tetanus/diphtheria/pertussis, acel(Tdap) 12/10/23 Recorded tetanus-diphtheria toxoids (Td) 04/15/22 Recorded SARS-CoV-2 (COVID-19) mRNA-1273 vaccine 02/13/21 R ecorded SARS-CoV-2 (COVID-19) mRNA-1273 vaccine 01/16/21 R ecorded pneumococcal 13-valent vaccine 1 07/10/19 Given 1Result Comment: [facility]: [id number] Medications calcium and vitamin D combination 500 [...] 0 Refills, Maintenance, 04/10/24 11:58:00 EDT, Tablet, [facility]acy #[id number], Partial fill upon patient request if the prescription is for a schedule II opioid drug., 170, cm, 04/10/24 10:44:00 EDT, Height, 77, kg, 0... Start Date: 04/10/24 Stop Date: 04/12/24 Status: Ordered losartan 25 mg oral tablet 1 tablet = 25 mg, By Mouth, Daily, # 30 tablet, 0 Refills, Maintenance, 04/10/24 11:58:00 EDT, Tablet, [facility]/pharmacy #[id number], Partial fill upon patient request if [...] Primary Care Nurse Name: Saba Gilbert Position: [facility] Child And Family Therapist Member Role: Helicopter Crew Chief Name: Danika Wilkerson RN Position: [facility] RN Member Role: Primary Care Nurse Name: Latrice Laguna NP Position: [facility] PCO Associate Professional Member Role: PCP Address: Address: [address] [place] [address]- Care Team Related Persons Name: JD MARROQUIN
--- OUTSIDE RECORDS SUMMARY | 2024-08-29 12:27 | XMS_ITS | Continuity of Care Document ---
Author Organization [facility] Adult Address [address] [place] [address]- Care Team Providers Care Machine Loader Name Role Phone Jase LEE, Latrice Champagne Primary Care Physician [phone] [id number] Date(s): 12/27/23 - 03/14/[address] [address]- Attending Physician: Not on Staff, Attending MD Allergies, Adverse Reactions, Alerts No Known Allergies Immunizations Given and Recorded Vaccine Date Status Refusal Reason tetanus/diphtheria/pertussis, acel(Tdap) 12/10/23 Recorded tetanus-diphtheria toxoids (Td) 04/15/22 Recorded SARS-CoV-2 (COVID-19) mRNA-1273 vaccine 02/13/21 R ecorded SARS-CoV-2 (COVID-19) mRNA-1273 vaccine 01/16/21 R ecorded pneumococcal 13-valent vaccine 1 07/10/19 Given 1Result Comment: [facility]: [id number] Medications calcium and vitamin D combination 500 mg-200 iu oral tablet 1 tablet, By Mouth, 2 times a day, # 180 tablet, 2 Refills, Maintenance, 07/14/22 11:17:00 EDT, Tablet, [facility], Partial [...] Team Personnel Name: Landy Hernández LPN Position: [facility] RN Member Role: Primary Care Nurse Name: Saba Gilbert Position: [facility] [place] Payable Manager Member Role: Sack Sorter Name: Danika Wilkerson RN Position: [facility] RN Member Role: Primary Care Nurse Name: Latrice Laguna NP Position: [facility] PCO Associate Professional Member Role: PCP Address: Address: [address] [place] [address] [address] [place] [address]- Care Team Related Persons Name: JD MARROQUIN
--- OUTSIDE RECORDS SUMMARY | 2024-08-29 12:27 | XMS_ITS | Continuity of Care Document ---
Author Organization [facility] Adult Address [address] [place] [address]- Care Team Providers Care Equipment Validation Specialist Name Role Phone Jase MANAGER ACUTE, Latrice Champagne Primary Care Physician [id number] Date(s): 12/04/22 - 01/25/[address] [address]- Attending Physician: Not on Staff, Attending MD Allergies, Adverse Reactions, Alerts No Known Allergies Immunizations Given and Recorded Vaccine Date Status Refusal Reason tetanus-diphtheria toxoids (Td) 04/15/22 Recorded SARS-CoV-2 (COVID-19) mRNA-1273 vaccine 02/13/21 R ecorded SARS-CoV-2 (COVID-19) mRNA-1273 vaccine 01/16/21 R ecorded pneumococcal 13-valent vaccine 1 07/10/19 Given 1Result Comment: [facility]: [id number] Medications atorvastatin 20 mg oral tablet 1 tablet = 20 mg, By Mouth, Daily at bedtime, # 90 tablet, 4 Refills, Maintenance, 06/01/22 11:51:00 EDT, Tablet, [facility], 170, cm, 06/01/22 11:50:00 EDT, Height, 74, kg, 02/04/22 5:20:00 EDT, Dry Weight Start Date: 06/01/22 Status: Ordered calcium and vitamin D combination 500 mg-200 iu oral tablet 1 tablet, By Mouth, 2 times a day, # 180 tablet, 2 Refills, Maintenance, 07/14/22 11:17:00 EDT, Tablet, [facility], Partial fill upon patient request [...] 12/04/22 14:07:00 EST, Route to Pharmacy Electronically, [facility], Partial fill upon patient request if the prescription is for a schedule II opioid d... Start Date: 12/04/22 Status: Ordered quinapril 20 mg oral tablet 1 tablet = 20 mg, By Mouth, Daily, # 90 tablet, 3 Refills, Maintenance, 06/15/22 15:27:00 EDT, Tablet, [facility], Partial fill upon patient request if the prescription is for a schedule II opioid drug., 170, cm, 06/05/22 14:12:00 EDT, Heig... Start Date: 06/15/22 Status: Ordered sertraline 50 mg oral tablet 1 tablet = 50 mg, By Mouth, Daily, # 90 tablet, 2 Refills, Maintenance, 07/14/22 11:26:00 EDT, Tablet, [facility], Partial fill upon [...] Team Personnel Name: Latrice Laguna NP Position: [facility] PCO Associate Professional Member Role: PCP Address: Address: [address] [place] [address] [address]rd [place] [address]- Care Team Related Persons Name: JD MARROQUIN Address: home [address] [place] [address]
--- OUTSIDE RECORDS SUMMARY | 2024-08-29 12:27 | XMS_ITS | Continuity of Care Document ---
Author Organization [facility] Address [address] [place] [address]- Care Team Providers Care Ibm Bpm Developer Name Role Phone Jase LEE, Latrice Champagne Primary Care Physician [id number] Date[facility]s): 12/19/22 - 01/27/[address] [address] Attending Physician: Latrice Laguna NP Admitting Physician: Latrice Laguna NP Referring Physician: Latrice Laguna NP Allergies, Adverse Reactions, Alerts No Known Allergies Immunizations Given and Recorded Vaccine Date Status Refusal Reason tetanus-diphtheria toxoids (Td) 04/15/22 Recorded SARS-CoV-2 (COVID-19) mRNA-1273 vaccine 02/13/21 R ecorded SARS-CoV-2 (COVID-19) mRNA-1273 vaccine 01/16/21 R ecorded pneumococcal 13-valent vaccine 1 07/10/19 Given 1Result Comment: [facility]: [id number] Medications atorvastatin 20 mg oral tablet 1 tablet = 20 mg, By Mouth, Daily at bedtime, # 90 tablet, 4 Refills, Maintenance, 06/01/22 11:51:00 EDT, Tablet, [facility], 170, cm, 06/01/22 11:50:00 EDT, Height, 74, kg, 02/04/22 5:20:00 EDT, Dry Weight Start Date: 06/01/22 Status: Ordered calcium and vitamin D combination 500 mg-200 iu oral tablet 1 tablet, By Mouth, 2 times a day, # 180 tablet, 2 Refills, Maintenance, 07/14/22 11:17:00 EDT, Tablet, [facility]278, Partial fill upon patient [...] 12/04/22 14:07:00 EST, Route to Pharmacy Electronically, [facility], Partial fill upon patient request if the prescription is for a schedule II opioid d... Start Date: 12/04/22 Status: Ordered quinapril 20 mg oral tablet 1 tablet = 20 mg, By Mouth, Daily, # 90 tablet, 3 Refills, Maintenance, 06/15/22 15:27:00 EDT, Tablet, [facility]278, Partial fill upon patient request if the prescription is for a schedule II opioid drug., 170, cm, 06/05/22 14:12:00 EDT, Heig... Start Date: 06/15/22 Status: Ordered sertraline 50 mg oral tablet 1 tablet = 50 mg, By Mouth, Daily, # 90 tablet, 2 Refills, Maintenance, 07/14/22 11:26:00 EDT, Tablet, [facility]278, Partial fill upon patient [...] Associate Professional Member Role: PCP Address: Address: [address] [place] [address] 3rd [place] [address]- Care Team Related Persons Name: JD MARROQUIN Address: home [address] [place] [address]
--- OUTSIDE RECORDS SUMMARY | 2024-08-29 12:27 | XMS_ITS | Continuity of Care Document ---
Author Organization [facility] Adult Address [address] [place] [address]- Care Team Providers Care Labor Training Manager Name Role Phone Jase LEE, Latrice Champagne Primary Care Physician Encounter [facility] Date(s): 06/25/20 - 07/25/20 [facility] Adult [address] [place] [address] [facility] Allergies, Adverse Reactions, Alerts Substance Reaction Severity Status NKA Active Immunizations Given and Recorded Vaccine Date Status Refusal Reason pneumococcal 13-valent vaccine 1 07/10/19 Given 1Result Comment: [facility]: [id number] Medications atorvastatin 20 mg oral tablet 1 [...]
--- OUTSIDE RECORDS SUMMARY | 2024-08-29 12:27 | XMS_ITS | Continuity of Care Document ---
Author Organization [facility] Adult Address [address] [place] [address]- Care Team Providers Care Quarrying Manager Name Role Phone Jase LEE, Latrice Champagne Primary Care Physician [place] [facility] Date(s): 05/12/20 - 06/11/20 [facility] Adult [address] [place] [address] [facility] Allergies, Adverse Reactions, Alerts Substance Reaction Severity Status NKA Active Immunizations Given and Recorded Vaccine Date Status Refusal Reason pneumococcal 13-valent vaccine 1 07/10/19 Given 1Result Comment: [facility]: [id number] Medications atorvastatin 20 mg oral tablet 1 [...]
--- OUTSIDE RECORDS SUMMARY | 2024-08-29 12:27 | XMS_ITS | Continuity of Care Document ---
Author Organization [facility] Adult Address [address] [place] [address]- Care Team Providers Care Elevated Work Platform Operator Name Role Phone Jase LITHOGRAPH DESIGNER, Latrice Champagne Primary Care Physician [phone] Encounter [facility] [place] Date(s): 08/04/21 - 09/03/21 [facility] Adult [address] [place] [address]- Attending Physician: Joel Saavedra Admitting Physician: Joel Saavedra Referring Physician: AdmtrJoel Allergies, Adverse Reactions, Alerts Substance Reaction Severity Status NKA Active Immunizations Given and Recorded Vaccine Date Status Refusal Reason SARS-CoV-2 (COVID-19) mRNA-1273 vaccine 02/13/21 R ecorded SARS-CoV-2 (COVID-19) mRNA-1273 vaccine 01/16/21 R ecorded pneumococcal 13-valent vaccine 1 07/10/19 Given 1Result Comment: [facility]: [id number] Medications atorvastatin 20 mg oral tablet 1 [...]
--- OUTSIDE RECORDS SUMMARY | 2024-08-29 12:27 | XMS_ITS | Continuity of Care Document ---
Author Organization [facility] Address [address] [place] [address]- Care Team Providers Care Press Worker Helper Name Role Phone Jase CONVENIENCE STORE CLERK, Latrice Champagne Primary Care Physician [place] [facility] [place](s): 07/13/22 - 08/12/[address] [address]- Attending Physician: Joel Saavedra Admitting Physician: Joel Saavedra Referring Physician: AdmtrJoel Allergies, Adverse Reactions, Alerts No Known Allergies Immunizations Given and Recorded Vaccine Date Status Refusal Reason tetanus-diphtheria toxoids (Td) 04/15/22 Recorded SARS-CoV-2 (COVID-19) mRNA-1273 vaccine 02/13/21 R ecorded SARS-CoV-2 (COVID-19) mRNA-1273 vaccine 01/16/21 R ecorded pneumococcal 13-valent vaccine 1 07/10/19 Given 1Result Comment: [facility]: [id number] Medications atorvastatin 20 mg oral tablet 1 tablet = 20 mg, By Mouth, Daily at bedtime, # 90 tablet, 4 Refills, Maintenance, 06/01/22 11:51:00 EDT, Tablet, [facility], 170, cm, 06/01/22 11:50:00 EDT, Height, 74, kg, 02/04/22 5:20:00 EDT, Dry Weight Start Date: 06/01/22 Status: Ordered calcium and vitamin D combination 500 mg-200 iu oral tablet 1 tablet, By Mouth, 2 times a day, # 180 tablet, 2 Refills, Maintenance, 07/14/22 11:17:00 EDT, Tablet, [facility], Partial fill upon patient request if the prescription is for a schedule II opioid drug., 1 tablet By Mouth 2 times a day, 17... Start Date: 07/14/22 Status: Ordered hydrochlorothiazide 25 mg oral tablet 25 mg, 1, tablet, By Mouth, Daily, # 90 tablet, Refills 3, Tot. Refills 3, Maintenance, 06/15/22 15:27:00 EDT, Route to Pharmacy Electronically, [facility], Partial fill upon patient request if the prescription is for a schedule II opioid d... Start Date: 06/15/22 Status: Ordered quinapril 20 mg oral tablet 1 tablet = 20 mg, By Mouth, Daily, # 90 tablet, 3 Refills, Maintenance, 06/15/22 15:27:00 EDT, Tablet, [facility], Partial fill upon patient request if the prescription is for a schedule II opioid drug., 170, cm, 06/05/22 14:12:00 EDT, Heig... Start Date: 06/15/22 Status: Ordered sertraline 50 mg oral tablet 1 tablet = 50 mg, By Mouth, Daily, # 90 tablet, 2 Refills, Maintenance, 07/14/22 11:26:00 EDT, Tablet, [facility], Partial fill upon patient request if the prescription is for a schedule II opioid drug., 170, cm, 07/14/22 10:53:00 EDT, Heig... Start Date: 07/14/22 Status: Ordered traZODone 50 mg oral tablet 50 mg, 1, tablet, By Mouth, Daily at bedtime, PRN, # 30 tablet, Refills 3, Tot. Refills 3, Maintenance, Insomnia, 07/14/22 11:08:00 EDT, Route to Pharmacy Electronically, [facility], Partial fill upon [...] Personnel Name: Latrice Laguna NP Address: Address: [address] [place] [address]
--- OUTSIDE RECORDS SUMMARY | 2024-08-29 12:27 | XMS_ITS | Continuity of Care Document ---
Author Organization [facility] Adult Address [address] [place] [address]- Care Team Providers Care Talent Sourcer Name Role Phone Latrice Laguna NP Primary Care Physician [phone] Encounter [facility] [id number] Date(s): 02/02/22 - 02/09/[address] [address]- Encounter Diagnosis Altered mental status(Discharge Diagnosis) - 02/02/22 Forgetfulness(Discharge Diagnosis) - 02/02/22 Obesity (BMI 30-39.9)(Discharge Diagnosis) - 02/02/22 HTN (hypertension)(Discharge Diagnosis) - 02/02/22 Anxiety and depression(Discharge Diagnosis) - 02/02/22 Living accommodation issues(Discharge Diagnosis) - 02/02/22 Attending Physician: Not on Staff, Attending MD Referring Physician: Latrice Laguna NP Allergies, Adverse Reactions, Alerts No Known Allergies Immunizations Given and Recorded Vaccine Date Status Refusal Reason SARS-CoV-2 (COVID-19) mRNA-1273 vaccine 02/13/21 R ecorded SARS-CoV-2 (COVID-19) mRNA-1273 vaccine 01/16/21 R ecorded pneumococcal 13-valent vaccine 1 07/10/19 Given 1Result Comment: [facility]: [id number] Medications atorvastatin 20 mg oral tablet 1 tablet = 20 mg, By Mouth, Daily at bedtime, # 90 tablet, 4 Refills, Maintenance, 02/02/22 15:02:00 EDT, Tablet, [id number], 165, cm, 02/02/22 15:00:00 EDT, Height Start [...] 0 Refills, Maintenance, 02/02/22 15:03:00 EDT, Tablet, [id number], Partial fill upon patient request if the prescription is for a schedule II opioid drug., 165, cm, 02/02/22 15:00:00 EDT... Start Date: 02/02/22 Status: Ordered hydrochlorothiazide-quinapril 20 mg-25 mg oral tablet 1 tablet, By Mouth, Daily, for 90 days, # 90 tablet, 3 Refills, Hard Stop 04/26/22 15:00:00 EDT, 05/01/21 15:00:00 EDT, Tablet, [facility]acy #[id number], 165, cm, 12/30/20 10:18:00 EDT, Height Start Date: 05/01/21 Stop Date: 04/26/22 Status: Ordered hydrochlorothiazide-quinapril 20 mg-25 mg oral tablet 1 tablet, By Mouth, Daily, # 90 tablet, 3 Refills, Maintenance, 04/26/22 15:00:00 EDT, Tablet, [id number], 1 tablet By Mouth Daily,x90 days, 165, [...] Effective Dates Health Status Clinical Service Informant Altered mental status Discharge Diagnosis 02/02/22 Anxiety and depression Discharge Diagnosis 02/02/22 HTN (hypertension) Discharge Diagnosis 02/02/22 Obesity (BMI 30-39.9) Discharge Diagnosis 02/02/22 Forgetfulness Discharge Diagnosis 02/02/22 Living accommodation issues Discharge Diagnosis 02/02/22 Vital Signs Most recent to oldest [Reference Range]: 1 2 3 Height 165 cm (02/02/22 3:15 PM) 165 cm (02/02/22 3:00 PM) 165 cm (02/02/22 2:26 PM) Weight 88 kg (02/02/22 2:15 PM) Oxygen Saturation [94-100 %] 98 % (02/02/22 2:15 PM) Pulse Rate [55-90 bpm] 60 bpm (02/02/22 3:15 PM) 43 bpm *L* (02/02/22 2:15 PM) Body Mass Index [18.5-24.99] 32.32 *>HHI* (02/02/22 2:15 PM) Blood Pressure [90-138/55-84 mm Hg] 160/80mm Hg *H* (02/02/22 3:00 PM) 191/73mm Hg *H* (02/02/22 2:26 PM) 188/78mm Hg *H* (02/02/22 2:15 PM) Temperature [96.8-100.4 DegF] 98.2 DegF (02/02/22 2:15 PM) Mode of Delivery (Oxygen) Room air (02/02/22 2:15 PM) Blood pressure sites Arm, left (02/02/22 3:00 PM) Arm, left (02/02/22 2:26 PM) Arm, left (02/02/22 2:15 PM) Temperature Route Oral (02/02/22 2:15 PM) Weight Obtained Via Standing scale (02/02/22 2:15 PM) Social History Social History Type Response Smoking Status Former smoker, quit more than 30 days ago entered on: 12/30/20 Sex Female
--- OUTSIDE RECORDS SUMMARY | 2024-08-29 12:27 | XMS_ITS | Continuity of Care Document ---
Author Organization [facility] Adult Address [address] [place] [address]- Care Team Providers Care Driver/Guide Name Role Phone Jase ACCOUNT RETENTION REPRESENTATIVE, Latrice Champagne [id number] 09/[facility] - 10/04/[address] [address]- Allergies, Adverse Reactions, Alerts No Known Allergies Immunizations Given and Recorded Vaccine Date Status Refusal Reason tetanus-diphtheria toxoids (Td) 04/15/22 Recorded SARS-CoV-2 (COVID-19) mRNA-1273 vaccine 02/13/21 R ecorded SARS-CoV-2 (COVID-19) mRNA-1273 vaccine 01/16/21 R ecorded pneumococcal 13-valent vaccine 1 07/10/19 Given 1Result Comment: [facility]: [id number] Medications atorvastatin 20 mg oral tablet 1 tablet = 20 mg, By Mouth, Daily at bedtime, # 90 tablet, 4 Refills, Maintenance, 06/01/22 11:51:00 EDT, Tablet, [facility], 170, cm, 06/01/22 11:50:00 EDT, Height, 74, kg, 02/04/22 5:20:00 EDT, Dry Weight Start Date: 06/01/22 Status: Ordered calcium and vitamin D combination 500 mg-200 iu oral tablet 1 tablet, By Mouth, 2 times a day, # 180 tablet, 2 Refills, Maintenance, 07/14/22 11:17:00 EDT, Tablet, [facility], Partial fill upon patient request [...] 12/04/22 14:07:00 EST, Route to Pharmacy Electronically, [facility], Partial fill upon patient request if the prescription is for a schedule II opioid d... Start Date: 12/04/22 Status: Ordered lisinopril 20 mg oral tablet 1, tablet, By Mouth, Daily, # 90 tablet, Refills 0, Tot. Refills 0, Maintenance, 07/04/23 8:18:00 EDT, Route to Pharmacy Electronically, [facility], 170, cm, 12/04/22 14:06:00 EST, Height,74, kg, 02/04/22 5:20:00 EDT, Dry Weight Start Date: 07/04/23 Status: Ordered sertraline 50 mg oral tablet 1 tablet = 50 mg, By Mouth, Daily, # 90 tablet, 2 Refills, Maintenance, 07/14/22 11:26:00 EDT, Tablet, [facility], Partial fill upon patient request [...] Associate Professional Member Role: PCP Address: Address: [address] [place] [address] 3rd [place] [address]- Care Team Related Persons Name: JD MARROQUIN Address: home [address] [place] [address]
--- OUTSIDE RECORDS SUMMARY | 2024-08-29 12:27 | XMS_ITS | Continuity of Care Document ---
Author Organization [facility] Adult Address [address] [place] [address]- Care Team Providers Care Pricing Strategist Name Role Phone Jase BREADMAN, Latrice Champagne Primary Care Physician [phone] [phone] Date(s): 09/10/23 - 10/10/[address] [address]- Allergies, Adverse Reactions, Alerts No Known Allergies Immunizations Given and Recorded Vaccine Date Status Refusal Reason tetanus-diphtheria toxoids (Td) 04/15/22 Recorded SARS-CoV-2 (COVID-19) mRNA-1273 vaccine 02/13/21 R ecorded SARS-CoV-2 (COVID-19) mRNA-1273 vaccine 01/16/21 R ecorded pneumococcal 13-valent vaccine 1 07/10/19 Given 1Result Comment: [facility]: [id number] Medications atorvastatin 20 mg oral tablet 1 tablet = 20 mg, By Mouth, Daily at bedtime, # 90 tablet, 4 Refills, Maintenance, 06/01/22 11:51:00 EDT, Tablet, [id number], 170, cm, 06/01/22 11:50:00 EDT, Height, 74, kg, 02/04/22 5:20:00 EDT, Dry Weight Start Date: 06/01/22 Status: Ordered calcium and vitamin D combination 500 mg-200 iu oral tablet 1 tablet, By Mouth, 2 times a day, # 180 tablet, 2 Refills, Maintenance, 07/14/22 11:17:00 EDT, Tablet, [id number], Partial fill upon patient request [...] 12/04/22 14:07:00 EST, Route to Pharmacy Electronically, [id number], Partial fill upon patient request if the prescription is for a schedule II opioid d... Start Date: 12/04/22 Status: Ordered lisinopril 20 mg oral tablet 1, tablet, By Mouth, Daily, # 90 tablet, Refills 0, Tot. Refills 0, Maintenance, 07/04/23 8:18:00 EDT, Route to Pharmacy Electronically, [facility], 170, cm, 12/04/22 14:06:00 EST, Height,74, kg, 02/04/22 5:20:00 EDT, Dry Weight Start Date: 07/04/23 Status: Ordered sertraline 50 mg oral tablet 1 tablet = 50 mg, By Mouth, Daily, # 90 tablet, 2 Refills, Maintenance, 07/14/22 11:26:00 EDT, Tablet, [id number], Partial fill upon patient [...] Associate Professional Member Role: PCP Address: Address: [address] [place] [address] [address] [place] [address]- Care Team Related Persons Name: JD MARROQUIN Address: home [address] [place] [address]
--- OUTSIDE RECORDS SUMMARY | 2024-08-29 12:27 | XMS_ITS | Continuity of Care Document ---
Author Organization [facility] ter Address [address] [place] [id number]- Care Team Providers Care Getter Operator Name Role Phone Jase LEE, Latrice Champagne Primary Care Physician En[place] [facility] [place](s): 04/09/24 - 04/10/[address] [address] Discharge Disposition: A-D/C Home Attending Physician: Juana Montoya MD Admitting Physician: Charity Cabrera MD Referring Physician: Not on Staff, Referring MD Allergies, Adverse Reactions, Alerts Substance Reaction Severity Status lisinopril Angioedema Severe Active Immunizations Given and Recorded Vaccine Date Status Refusal Reason tetanus/diphtheria/pertussis, acel(Tdap) 12/10/23 Recorded tetanus-diphtheria toxoids (Td) 04/15/22 Recorded SARS-CoV-2 (COVID-19) mRNA-1273 vaccine 02/13/21 R ecorded SARS-CoV-2 (COVID-19) mRNA-1273 vaccine 01/16/21 R ecorded pneumococcal 13-valent vaccine 1 07/10/19 Given 1Result Comment: [facility]: [id number] Medications calcium and vitamin D combination 500 mg-200 iu oral tablet 1 tablet, By Mouth, 2 times a day, # 180 tablet, 2 Refills, Maintenance, 07/14/22 11:17:00 EDT, Tablet, [facility] [id number], Partial fill upon patient request if the [...] 0 Refills, Maintenance, 04/10/24 11:58:00 EDT, Tablet, [facility]/pharmacy #[id number], Partial fill upon patient request if the prescription is for a schedule II opioid drug., 170, cm, 04/10/24 10:44:00 EDT, Height, 77, kg, 0... Start Date: 04/10/24 Stop Date: 04/12/24 Status: Ordered losartan 25 mg oral tablet 25 mg, Tablet, By Mouth, STAT, 04/10/24 13:38:00 EDT Start Date: 04/10/24 Stop Date: 04/10/24 Status: Completed losartan 25 mg oral tablet 1 tablet = 25 mg, By Mouth, Daily, # 30 tablet, 0 Refills, Maintenance, 04/10/24 11:58:00 EDT, Tablet, [facility]/pharmacy #[id number], Partial fill upon patient request if the prescription is for a schedule II opioid drug., 170, cm, 04/10/24 10:44:00 EDT, Height,... Start Date: 04/10/24 Stop Date: 05/10/24 Status: Ordered PARoxetine 10 mg oral tablet 10 mg, 1, tablet, By Mouth, Daily, # 90 tablet, Refills 0, Tot. Refills 0, Maintenance, 12/24/23 16:44:00 EDT, Route to Pharmacy Electronically, [facility] [id number], Partial fill upon patient request if the prescription is for a schedule II opioid d... Start Date: 12/24/23 Status: Ordered predniSONE 20 mg oral tablet = 20 mg, By Mouth, 2 times a day, for 2 days, # 4 tablet, 0 Refills, Acute 04/12/24 11:59:00 EDT, 04/10/24 11:59:00 EDT, Tablet, [facility] #[id number], Partial fill upon patient request if the prescription is for a schedule II opioid drug., 170, cm, 07/0... Start Date: 04/10/24 Stop Date: 04/12/24 Status: Ordered Problem List Condition Confirmation Course [...] Range]: 1 2 3 Height 170 cm (04/10/24 6:57 PM) 170 cm (04/10/24 3:31 PM) 170 cm (04/10/24 10:44 AM) Weight 77 kg (04/09/24 7:27 PM) 77 kg (04/09/24 1:11 PM) Oxygen Saturation [94-100 %] 93 % *L* (04/10/24 6:57 PM) 97 % (04/10/24 3:31 PM) 99 % (04/10/24 10:44 AM) Pulse Rate [55-90 bpm] 97 bpm *H* (04/10/24 6:57 PM) 79 bpm (04/10/24 3:31 PM) 58 bpm (04/10/24 10:44 AM) Body Mass Index [18.5-24.99 kg/m2] 26.64 kg/m2 *H* (04/09/24 7:27 PM) Blood Pressure [90-138/55-84 mm Hg] 107/88mm Hg (04/10/24 6:57 PM) 151/72mm Hg *H* (04/10/24 3:31 PM) 146/68mm Hg *H* (04/10/24 1:47 PM) Respiratory Rate [16-30 br/min] 18 br/min (04/10/24 6:57 PM) 18 br/min (04/10/24 3:31 PM) 18 br/min (04/10/24 10:44 AM) Temperature [96.8-100.4 DegF] 98.5 DegF (04/10/24 6:57 PM) 98.2 DegF (04/10/24 3:31 PM) 97.8 DegF (04/10/24 10:44 AM) Mode of Delivery (Oxygen) Room air (04/10/24 6:57 PM) Room air (04/10/24 3:31 PM) Room air (04/10/24 10:44 AM) Blood pressure sites Arm, right (04/10/24 6:57 PM) Arm, right (04/10/24 3:31 PM) Arm, left (04/10/24 10:44 AM) Temperature Route Oral (04/10/24 6:57 PM) Oral (04/10/24 3:31 PM) Oral (04/10/24 10:44 AM) Dry Weight 77 kg (04/09/24 7:27 PM) 77 kg (04/09/24 1:11 PM) Social History Social History Type Response Smoking Status Former smoker, quit more than 30 days ago entered on: 12/30/20 Sex Female Admission evaluation note * Barney HO, Mg: PERFORM Event Display: Admission Note Authored Date: [id number] Patient: ??ALONDRA MARROQUIN ? Age:??83 Years?Sex:??Female?:??1940?? Chief Complaint/Reason for Consultation Facial swelling History of Present Illness The patient is a 83 years old female with past medical history of dementia, hypertension presented to ER with a chief complaint of swelling of face.?? History is obtained via chart as patient has dementia and unable to provide reliable history. ? As per ER note,??patient was in her usual state of health when family noticed swelling of??lips andjaw in the morning.?? The swelling did not improve throughout the day and therefore family decided to bring the patient to the ER. ?? As per patient daughter, patient takes lisinopril at home??and last dose was yesterday night..?? InER, patient received Solu-Medrol, Benadryl??without any effect on the swelling and therefore patient admitted for further observation ?? On my reevaluation, patient reported that she was brought to the hospital by her daughter to get her but she is not sure why.?? The patient??denied any difficulty swallowing, facial pain,??fever, chills. ?? Based on patient medication review, it appears patient is taking losartan but as per ER note, patient daughter reported to ER that patient takes lisinopril Review of Systems All pertinent negative and positives are noted in HPI. ??All other systems were reviewed and are negative Objective Measurements?? Height: 170 cm (04/09/24) Weight: 77 kg (04/09/24) Dry Weight: 77 kg (04/09/24) Body Mass Index:??26.64 kg/m2??High (04/09/24) ? Vital Signs?? Temperature: 97.9 DegF (04/09/24 18:30:00) Temperature Route: Oral (04/09/24 18:30:00) Pulse Rate: 71 bpm (04/09/24 19:27:00) Respiratory Rate: 17 br/min (04/09/24 19:27:00) Systolic Blood Pressure: 125 mm Hg (04/09/24 19:27:00) Diastolic Blood Pressure: 80 mm Hg (04/09/24 19:27:00) Blood pressure sites: Arm, right (04/09/24 19:27:00) Mean Arterial Pressure: 95 mm Hg (04/09/24 19:27:00) Pulse Pressure: 45 mm Hg (04/09/24 19:27:00) Oxygen Saturation: 95 % (04/09/24 19:27:00) Mode of Delivery (Oxygen): Room air (04/09/24 18:30:00) Early Warning Score: 4 (04/09/24 20:23:46) ? Physical Exam Constitutional: Alert, in no acute distress. Head: Normocephalic. ?? Eyes: Pupils are equal, round and reactive to light. Extraocular muscles intact. No pallor or scleral icterus ?? Ear, Nose and Throat:??Face: Swelling of lips noted with bilateral??jaw swelling, no erythema, no tenderness, no change in voice,??no difficulty opening mouth, no tenderness, able to tolerate secretions ?? Neck: Supple, Full range of motion.No JVD or bruits. Respiratory:??Clear to auscultation. No wheezing or rhonchi.??No use of accessory muscles. No tactile fremitus.?? Cardiovascular:??PMI not visible. S1 S2 regular. No murmurs, rubs or gallops. Gastrointestinal:??Abdomen soft, non-tender, non-distended. Normal bowel sounds. No pulsatile mass.No hepatosplenomegaly. Genitourinary:??No costovertebral angle tenderness. Extremities: No lower extremity pitting edema. No cyanosis or clubbing. Neurologic:??AAOx2, Cranial nerves II-XII grossly intact. Speech normal, no facial droop. No focal neurological deficits. Moves all extremities spontaneously. Sensation intact bilaterally.??Flexor plantar response Skin:??No rash.?? Musculoskeletal:??No gross deformities on inspection. Normal range of motion in hips, knees, ankles. ??.??Muscle strength within normal limits Heme/Lymphatics:??Palpation of neck reveals no swelling or tenderness of neck nodes.?? Psychiatric: Normal mood and affect. Assessment/Plan Diagnoses 1. ??Facial swelling ??(R22.0) 2. ??HTN (hypertension) ??(I10) 3. ??Anxiety with depression ??(F41.8) 4. ??Dementia ??(F03.90) ?? Assessment:??The patient is a 83 years old female who is admitted for facial swelling due to presumed angioedema ?? HTN (hypertension) (I10):??Currently holding??home medication for blood pressure??as it is unclear if patient takes any medications or not ?? Anxiety with depression (F41.8):??Resume home medication paroxetine ?? Dementia (F03.90):??Currently not on any medication at home ?? Facial swelling (R22.0):??Patient was brought to the ER by her daughter due to??lips and bilateral jaw swelling that started today Patient has dementia and unable provide any history but patient is denying any facial pain, difficulty swallowing, difficulty tolerating secretions, shortness of breath??or any change in voice As per ER note, patient takes lisinopril at home but??as per pharmacy, patient is on losartan??at home and??based on discharge summary in December,, patient was not discharged on any medication for blood pressure In ER, patient received Solu-Medrol, Benadryl without any??improvement??in symptoms On my physical exam patient does have lips and bilateral jaw swelling Will order CT scan of face to rule out any underlying??abscess Will continue p.o. prednisone??and Zyrtec daily to cover for angioedema Called [facility] multiple times but[facility] family [facility] to confirm??if patient actually takes lisinopril?? Will monitor??for signs of airway compromise??or any worsening of symptoms ?? VTE Prophylaxis:??Lovenox ?VTE Prophylaxis Assessment:??VTE Prophylaxis Ordered ?? Discharge Planning:??Pending clinical course ?? Ongoing Medical Necessity:??Angioedema ?? Code Status:??Persumed Full code as we are unable to talk to family ?Order Code Status:??Code Status Ordered ? Date of service: April 09, 2024 Histories Allergies Allergies ?(Active and Proposed Allergies Only) NKA? (Severity: Unknown severity, Onset: Unknown) ? Past Medical History/Problem List Active Problems(17) Alcohol abuse Alcohol use Chronic pain of [...] Alcoholism; Liver cirrhosis ? Medications Home Medications Calcium And Vitamin D Combination (calcium and vitamin D combination 500 mg-200 iu oral tablet)?1?tab(s)?By Mouth?2 times a day Durable Medical Equipment (Cane)?See Instructions?Cane-Dx Unseady gait Losartan (losartan 25 mg oral tablet)?1?tab(s)?25?Milligram?By Mouth?Daily Paroxetine (PARoxetine 10 mg oral tablet)?10?Milligram?1?tablet?By Mouth?Daily ? Results Recent Labs BLOOD COUNT & DIFF WBC 6.8 k/mm3 ()?? 04/09/2024 13:46 RBC 5.12 m/mm3 ()?? 04/09/2024 13:46 Hgb 15.2 Gm/dL ()?? 04/09/2024 13:46 Hct 45.8 % ()?? 04/09/2024 13:46 MCV 89.5 femtoliters ()?? 04/09/2024 13:46 MCH 29.7 pg ()?? 04/09/2024 13:46 MCHC 33.2 g/dL ()?? 04/09/2024 13:46 Platelet Count 210 k/mm3 ()?? 04/09/2024 13:46 RDW-SD 45.2 femtoliters ()?? 04/09/2024 13:46 MPV 10.5 femtoliters ()?? 04/09/2024 13:46 Nucleated RBC (Automated) 0.0 #/100 WBC'S ()?? 04/09/2024 13:46 Abs. NRBC 0.0 k/mm3 ()?? 04/09/2024 13:46 Abs. Neut 4.6 k/mm3 ()?? 04/09/2024 13:46 Abs. Lymph 1.7 k/mm3 ()?? 04/09/2024 13:46 Abs. [place] 0.5 k/mm3 ()?? 04/09/2024 13:46 Abs. Eo 0.1 k/mm3 ()?? 04/09/2024 13:46 Abs. Baso 0.0 k/mm3 ()?? 04/09/2024 13:46 Neut % 67.0 % ()?? 04/09/2024 13:46 Lymph % 24.3 % ()?? 04/09/2024 13:46 [place] % 6.8 % ()?? 04/09/2024 13:46 Eos % 1.0 % ()?? 04/09/2024 13:46 Baso % 0.6 % ()?? 04/09/2024 13:46 Imm Gran 0.3 % ()?? 04/09/2024 13:46 Abs. Imm Gran 0.0 k/mm3 ()?? 04/09/2024 13:46 ?? CHEM GENERAL Sodium 138 mmol/L ()?? 04/09/2024 13:46 Potassium HEMOLYZED mmol/L ()?? 04/09/2024 13:46 Chloride 103 mmol/L ()?? 04/09/2024 13:46 Bicarbonate Level 21 mmol/L (Low)?? 04/09/2024 13:46 Anion Gap 14 ()?? 04/09/2024 13:46 Glucose Level 85 mg/dL ()?? 04/09/2024 13:46 BUN 24 mg/dL (High)?? 04/09/2024 13:46 Creatinine-Blood 0.85 mg/dL ()?? 04/09/2024 13:46 Estimated GFR Creatinine 69 ML/MIN/1.73 M2 ()?? 04/09/2024 13:46 Calcium 9.1 mg/dL ()?? 04/09/2024 13:46 ?? URINE OTHER Est Creatinine Clearance 50.34 mL/min ()?? 04/09/2024 15:28 ? Coagulation Profile?? No qualifying data available. ? * Mg Corley MD: PERFORM Event Display: Admission Note Authored Date: I was able to talk to patient's family and they confirmed to me that??patient has been taking lisinopril at bedtime and patient also received 20 mg repeat yesterday.?? Therefore, patient presentationis more consistent??with angioedema due to lisinopril.?? Will hold lisinopril and patient can be discharged on low- dose losartan or amlodipine??for blood pressure control,??will also DC CT scan of face EKG study * Event Display: ECG 12-Lead Authored Date: Please click on pdf link to open report * Event Display: ECG 12-Lead Authored Date: Ventricular Rate: 52 BPM Atrial Rate: 52 BPM P-R Interval: 216 ms QRS Duration: 82 ms Q-T Interval: 438 ms QTC Calculation(Bazett): 407 ms P [place]: -2 degrees R [place]: 5 degrees T [place]: 27 degrees Sinus bradycardia with 1st degree A-V block with Premature atrial complexes Cannot rule out Anterior infarct , age undetermined Abnormal ECG When compared with ECG of 05-DEC-2023 21:20, Premature ventricular complexes are no longer Present Premature atrial complexes are now Present AL interval has increased Confirmed by CHARITY SIMON MD ([id number]) on 04/09/2024 4:32:57 PM [place]: CHARITY SIMON MD Note * Lidya Salas RN: PERFORM Event Display: Discharge/Transfer Note Hospital Authored Date: Nursing Discharge Note Entered On: 04/10/2024 18:29 EDT Performed On: 04/10/2024 18:29 EDT by Lidya Salas RN Nursing Discharge Note 2 Discharge Time : 04/10/2024 18:29 EDT Discharge Level of Care at Discharge : Home/Detention/Foster Care Patient Left Unit Via : Wheelchair Patient Accompanied Off Unit with : Responsible adult DC Instructions Provided & Signed by Pt : Yes Patient Understands D/C Instructions : Yes Patient Instructions Discharge Signed : Yes Did Pt have Specialty Bed or Wound Vac : No Lidya Salas RN - 04/10/2024 18:29 EDT * Tri Kaplan: MODIFY, MODIFY, PERFORM, MODIFY Event Display: Discharge/Transfer Note Hospital Authored Date: Patient: ??LOPEZ, ALONDRA ? Age:??83 Years?Sex:??Female?:??1940?? Patient Information Discharge Location: [facility] Primary Care Physician: Latrice Laguna NP Admit Date/Time: 04/09/24 13:04 Discharge Disposition Discharge Disposition: Home: No Services Discharge Diagnosis Facial swelling (R22.0) HTN (hypertension) (I10) Anxiety with depression (F41.8) Dementia (F03.90) _ Discharge Medications Calcium And Vitamin D Combination (calcium and vitamin D combination 500 mg-200 iu oral tablet)?1?tab(s)?By Mouth?2 times a day Cetirizine (cetirizine 10 mg oral tablet)?10?Milligram?By Mouth?Daily?for 2?Days Durable Medical Equipment (Cane)?See Instructions?Cane-Dx Unseady gait Losartan (losartan 25 mg oral tablet)?1?tab(s)?25?Milligram?By Mouth?Daily Paroxetine (PARoxetine 10 mg oral tablet)?10?Milligram?1?tablet?By Mouth?Daily PredniSONE (predniSONE 20 mg oral tablet)?20?Milligram?By Mouth?2 times a day?for 2?Days Medications Started PredniSONE (predniSONE 20 mg oral tablet)?20?Milligram?By Mouth?2 times a day?for 2?Days Cetirizine (cetirizine 10 mg oral tablet)?10?Milligram?By Mouth?Daily?for 2?Days Medications Discontinued LISINOPRIL Doses Changed None Allergies Allergies ?(Active and Proposed Allergies Only) NKA? (Severity: Unknown severity, Onset: Unknown) PCP Follow-Up/Heads-Up Patient seen in hospital for angioedema/facial swelling, likely secondary to ANTONIETTA inhibitor. ??She has been officially discontinued from lisinopril, advised family to throw away the medication.?? Willcontinue her on losartan??as prescribed. Future Appointments 2023 2:30 PM EDT ?? With: Jase LEE, Latrice Champagne Where: [address] [address]- Status: Pending Hospital Course Patient admitted to the hospital on 04-09-2024 under observation status for angioedema/facial swelling thought to be secondary to her ANTONIETTA inhibitor. She was given Benadryl as well as steroid in the ER and continued to improve throughout hospitalization. Airway was never compromised, most of the swelling was localized to lips and lower jaw. Patient does have history of dementia and thus is coordinating with family for safe discharge. They feel safe taking her home, she has support at home, has family that checks in on her often. She is ambulatory independently, no need for PT services. She will continue steroid for 2 more days and follow-up if needed. Losartan initiated, lisinopril discontinued . At time of discharge, patient stable, all questions answered at bedside. Objective Assessment and Plan The patient is a 83 years old female who is admitted for facial swelling due to presumed angioedema ?? Facial swelling (R22.0):??Patient was brought to the ER by her daughter due to??lips and bilateral jaw swelling that started yesterday ?? Plan: -patient family confirmed she was still taking lisinopril and thus this was likely the??offending agent -advised family and patient to throw away the lisinopril, will list as an allergy in her chart and continue her Losartan that was previously prescribed -Patient has dementia and unable provide any history but patient is denying any facial pain, difficulty swallowing, difficulty tolerating secretions, shortness of breath??or any change in voice -received Solu-Medrol, Benadryl without any??improvement??in symptoms -continue p.o. prednisone??and Zyrtec daily to cover for angioedema x 2 more days -discussed return precautions for worsening edema -FU as needed with PCP ?? HTN (hypertension) (I10):??-continue??Losartan, DC??Lisinopril entirely ?? Anxiety with depression (F41.8):??-Resume home medication paroxetine ?? Dementia (F03.90):??-Currently not on any medication at home, lives with daughter and she has extracare in the home, she is never alone. Daughter feels safe taking her home. Vital Signs?? Temperature: 97.8 DegF (04/10/24 10:44:00) Temperature Route: Oral (04/10/24 10:44:00) Pulse Rate: 58 bpm (04/10/24 10:44:00) Respiratory Rate: 18 br/min (04/10/24 10:44:00) Systolic Blood Pressure:??146 mm Hg??High (04/10/24 10:44:00) Diastolic Blood Pressure: 68 mm Hg (04/10/24 10:44:00) Blood pressure sites: Arm, left (04/10/24 10:44:00) Mean Arterial Pressure: 94 mm Hg (04/10/24 10:44:00) Pulse Pressure: 78 mm Hg (04/10/24 10:44:00) Oxygen Saturation: 99 % (04/10/24 10:44:00) Mode of Delivery (Oxygen): Room air (04/10/24 10:44:00) Early Warning Score: 2 (04/10/24 10:46:18) . Physical Exam Constitutional: Alert, in no distress. Mental Status: Oriented but confused at times. Head: Normocephalic. Respiratory: Clear to auscultation. No wheezing, rales or rhonchi. Cardiovascular: S1 S2 regular. No murmurs, rubs or gallops. Gastrointestinal: Abdomen soft, non-tender, non-distended. Normal bowel sounds. Neurologic: No focal neurological deficits. Flexor plantar response. Moves all extremities spontaneously. Sensation intact bilaterally. Skin: No rashes or lesions. No petechiae or purpura.?? Musculoskeletal: No cyanosis or clubbing. No gross deformities. Normal range of motion. Heme/Lymphatics/Immun: Palpation of neck reveals no swelling or tenderness of neck nodes. Psychiatric: Normal mood and affect Patient Education Titles WebMD Ignite Patient Education - Angioedema?? Follow-Up Appointments Added Follow Up ?Time Frame ?Comments OgukLatrice lindsay NP?3-5 day: call to discuss follow up visit?Be sure to follow-up with your primary care provider as needed to keep them updatedon this hospitalization and your general health. Patient Instructions You are seen at [facility] for complaint of facial swelling/angioedema, this was likely secondary to your lisinopril medication.?? This is a known possible side effect??of the medication. ??You should discontinue your lisinopril entirely,??we will listed as an allergy in your chart.?? Instead, you will be continued on losartan, another similar blood pressure medication??that should be safe??from the side effect.? I have sent you??30 days of losartan, a couple of days of steroids??and cetirizine??to finish your course. ??Unfortunately our pharmacy is closed today, I have sent it to the [facility]??on [address] [facility]. ?? If you notice any additional swelling,??new or concerning symptoms, as always return to the emergency room for reevaluation. Post Discharge [facility] Home Health Face to Face ^HomeHealthFTF Results Discharge Labs BLOOD COUNT & DIFF WBC 8.6 k/mm3 ()?? 04/10/2024 01:32 RBC 5.07 m/mm3 ()?? 04/10/2024 01:32 Hgb 15.2 Gm/dL ()?? 04/10/2024 01:32 Hct 45.1 % ()?? 04/10/2024 01:32 MCV 89.0 femtoliters ()?? 04/10/2024 01:32 MCH 30.0 pg ()?? 04/10/2024 01:32 MCHC 33.7 g/dL ()?? 04/10/2024 01:32 Platelet Count 214 k/mm3 ()?? 04/10/2024 01:32 RDW-SD 44.2 femtoliters ()?? 04/10/2024 01:32 MPV 10.7 femtoliters ()?? 04/10/2024 01:32 Nucleated RBC (Automated) 0.0 #/100 WBC'S ()?? 04/10/2024 01:32 Abs. NRBC 0.0 k/mm3 ()?? 04/10/2024 01:32 Abs. Neut 4.6 k/mm3 ()?? 04/09/2024 13:46 Abs. Lymph 1.7 k/mm3 ()?? 04/09/2024 13:46 Abs. [place] 0.5 k/mm3 ()?? 04/09/2024 13:46 Abs. Eo 0.1 k/mm3 ()?? 04/09/2024 13:46 Abs. Baso 0.0 k/mm3 ()?? 04/09/2024 13:46 Neut % 67.0 % ()?? 04/09/2024 13:46 Lymph % 24.3 % ()?? 04/09/2024 13:46 [place] % 6.8 % ()?? 04/09/2024 13:46 Eos % 1.0 % ()?? 04/09/2024 13:46 Baso % 0.6 % ()?? 04/09/2024 13:46 Imm Gran 0.3 % ()?? 04/09/2024 13:46 Abs. Imm Gran 0.0 k/mm3 ()?? 04/09/2024 13:46 ?? CHEM GENERAL Sodium 138 mmol/L ()?? 04/10/2024 01:32 Potassium 4.3 mmol/L ()?? 04/10/2024 01:32 Chloride 104 mmol/L ()?? 04/10/2024 01:32 Bicarbonate Level 20 mmol/L (Low)?? 04/10/2024 01:32 Anion Gap 14 ()?? 04/10/2024 01:32 Glucose Level 231 mg/dL (High)?? 04/10/2024 01:32 BUN 24 mg/dL (High)?? 04/10/2024 01:32 Creatinine-Blood 0.84 mg/dL ()?? 04/10/2024 01:32 Estimated GFR Creatinine 70 ML/MIN/1.73 M2 ()?? 04/10/2024 01:32 Calcium 9.2 mg/dL ()?? 04/10/2024 01:32 Magnesium 1.9 mg/dL ()?? 04/10/2024 01:32 ? URINE OTHER Est Creatinine Clearance 50.94 mL/min ()?? 04/10/2024 03:09 ? 35??minutes spent on discharge * Lidya Salas RN: PERFORM Event Display: Patient Education/Instruction Authored Date: [id number] Inpatient Adult Discharge Instructions. [address] [address] Name: ALONDRA MARROQUIN : 1940?? Visit: 04/09/2024 13:04?? Current Date: 04/10/2024 15:29 ?? Account: [id number]?? Inpatient Adult Discharge Instructions We would like [...] and their families. Surveys are administered by [employer] ?? If further treatment with your primary care physician or another doctor is recommended, it is important for you to keep the appointment. Call your primary care physician or return to the Emergency Department immediately if your condition worsens, fails to improve, or new symptoms develop. If you need to find a doctor, you can call [facility] for a referral at [phone] or toll free at [phone] ([phone]) or log in to [email or web address].. ?? [facility], in keeping with [facility] guidance, no longer requires face masks for [...] a health care mohit of your choosing. [employer] is a website that allows you to securely view your medical information including your hospital discharge summary, office visit summaries, medications and follow-up visits. You can also request appointments, renew medications, and request access to your medical information using a health care mohit of your choosing, or just ask a question. You can enroll at [email or web address] or register during your next office visit. You have been discharged from [facility], Patient Care Unit: D3B??. If you have any questions regarding these instructions, including results of studies pending, afteryou leave, please call us and we will be happy to assist you 30/04. [facility] Your Care Team Attending Physician Juana Montoya MD?? Consulting Providers Juana Montoya MD?? Discharging Providers Li STARKEY, Tri Altamirano Reason for Your Visit from home, lives with family; family noted patients cheeks and lips to be swollen after waking up this monring, no sqwelling last night before bed 37.5mg benadryl po given at 1249?? Your Diagnosis Facial swelling HTN (hypertension) Anxiety with depression Dementia Tests Performed Below is a partial list of the tests performed during your hospitalization. You may have had other tests and procedures not included in this list. Please discuss all test results with your provider. Basic Metabolic Panel CBC CBC w/ Differential Magnesium Level No tests performed during this visit.?? Primary Care Provider Latrice Laguna NP? Advance Directive Health Care Proxy on File Yes - Health Care Proxy Discharge Vitals Temperature: 97.8 DegF Height: 170 cm Pulse Rate: 58 bpm Weight: 77 kg Respiratory Rate: 18 br/min Body Mass Index:??26.64 kg/m2??High Systolic Blood Pressure:??146 mm Hg??High Body surface area: 1.91 Diastolic Blood Pressure: 68 mm Hg ?? Oxygen Saturation: 99 % ?? Studies Pending All studies ordered during this hospital stay have been completed unless listed below. Please discuss all pending results with your provider listed above in these instructions. ?? No incomplete studies found?? What to do next Instructions From Your Doctor You are seen at [facility] for complaint of facial swelling/angioedema, this was likely secondary to your lisinopril medication.?? This is a known possible side effect??of the medication. ??You should discontinue your lisinopril entirely,??we will listed as an allergy in your chart.?? Instead, you will be continued on losartan, another similar blood pressure medication??that should be safe??from the side effect.? I have sent you??30 days of losartan, a couple of days of steroids??and cetirizine??to finish your course. ??Unfortunately our pharmacy is closed today, I have sent it to the [facility]??on [facility]. ?? If you notice any additional swelling,??new or concerning symptoms, as always return to the emergency room for reevaluation. ?? Orders??:Regular Diet :as tolerated Status:Full :Good :Good? 04/10/24 13:42:00 EDT?? Prescriptions??, ??[facility], [facility], ??04/10/24 13:42:00 EDT?? Scheduled Follow-Up Appointments 2023 2:30 PM EDT ?? With: Latrice Laguna NP Where: [address] [address]- Status: Pending You Need to Schedule the Following Appointments Follow Up with??Latrice Laguna NP When:??Within 3-5 day: call to discuss follow up visit Why: Be sure to follow-up with your primary care provider as needed to keep them updated on this hospitalization and your general health. Where: [address] [place] [address] [address] [place] [address]- Discharge Medications ALONDRA MARROQUIN :1940 Visit Date:04/09/2024 Medications: Please continue your medications until treatment is completed or stopped by your provider. Medications not listed below should be discontinued. Discuss any questions related to medications with your provider. What How Much When Why Instructions Next Dose Changed Losartan (losartan 25 mg oral tablet) 1 tab(s) Oral Daily Duration: 30 Days Pickup at [facility]/pharmacy #[id number] Take on tomorrow Unchanged Calcium And Vitamin D Combination (calcium and vitamin D combination 500 mg-200 iu oral tablet) 1 tab(s) Oral Twice a day Take on tonight Unchanged Cetirizine (cetirizine 10 mg oral tablet) 10 Milligram Oral Daily Duration: 2 Days Pickup at [facility]/pharmacy #0843 Take on tomorrow Unchanged Durable Medical Equipment (Cane) See instructions Unsteady gait Cane- Dx Unseady gait ?? Unchanged Paroxetine (PARoxetine 10 mg oral tablet) 1 tab(s) Oral Daily Take?? on today Unchanged PredniSONE (predniSONE 20 mg oral tablet) 20 Milligram Oral Twice a day Duration: 2 Days Pickup at [facility]/pharmacy #0843 Take on tonight [id number]: [address] [place] [address] [phone] Prescription Given During Visit Cetirizine (cetirizine 10 mg oral tablet) - 10 mg, By Mouth, Daily, # 2 tablet, 0 Refills, [facility]/pharmacy #[id number], [address] [place] [address] [phone]?? Losartan (losartan 25 mg oral tablet) - 1 tablet = 25 mg, By Mouth, Daily, # 30 tablet, 0 Refills, [facility]/pharmacy #0843, [address] [place] [address] [phone]?? PredniSONE (predniSONE 20 mg oral tablet) - 20 mg, By Mouth, 2 times a day, # 4 tablet, 0 Refills, [facility]/pharmacy #08, [address] [place] [address] [phone]?? Laboratory Results Below is a partial list of the most recent Laboratory test results done prior to this discharge. You may have had other tests and procedures not included in this list. Please discuss all test resultswith your provider. Est Creatinine Clearance - 50.94 mL/min (04/10/2024) Basic Metabolic Panel (04/10/2024) ???Sodium - 138 mmol/L???Potassium - 4.3 mmol/L???Chloride - 104 mmol/L???Bicarbonate Level - 20 mmol/L???Anion Gap - 14???Glucose Level - 231 mg/dL???BUN - 24 mg/dL???Creatinine-Blood - 0.84 mg/dL???Estimated GFR Creatinine - 70 ML/MIN/1.73 M2???Calcium - 9.2 mg/dL CBC (04/10/2024) ???WBC - 8.6 k/mm3???RBC - 5.07 m/mm3???Hgb - 15.2 Gm/dL???Hct - 45.1 %???MCV - 89.0 femtoliters???MCH - 30.0 pg???MCHC - 33.7 g/dL???Platelet Count - 214 k/mm3???RDW-SD - 44.2 femtoliters???MPV - 10.7 femtoliters???Nucleated RBC (Automated) - 0.0 #/100 WBC'S???Abs. NRBC - 0.0 k/mm3 CBC w/ Differential (04/09/2024) ???WBC - 6.8 k/mm3???RBC - 5.12 m/mm3???Hgb - 15.2 Gm/dL???Hct - 45.8 %???MCV - 89.5 femtoliters???MCH - 29.7 pg???MCHC - 33.2 g/dL???Platelet Count - 210 k/mm3???RDW-SD - 45.2 femtoliters???MPV - 10.5 femtoliters???Nucleated RBC (Automated) - 0.0 #/100 WBC'S???Abs. NRBC - 0.0 k/mm3???Abs. Neut - 4.6 k/mm3???Abs. Lymph - 1.7 k/mm3???Abs. [place] - 0.5 k/mm3???Abs. Eo - 0.1 k/mm3???Abs. Baso - 0.0 k/mm3???Neut % - 67.0 %???Lymph % - 24.3 %???[place] % - 6.8 %???Eos % - 1.0 %???Baso % - 0.6 %???Imm Gran - 0.3 %???Abs. Imm Gran - 0.0 k/mm3 Magnesium Level (04/10/2024) ???Magnesium - 1.9 mg/dL Allergies (NKA means No Known Allergies) lisinopril??(Angioedema) Problems Active Problems??(17) Alcohol abuse?? Alcohol use?? [...] Educational Leaflet Providered with your Discharge Instructions. [employer] Patient Education - Angioedema?? Valuables and Belongings I fully understand and agree that [facility] accepts no responsibility for all my [...] to send valuables and belongings home. ?? No Valuables/Belongings: No valuables/belongings present Review of Valuable and Belonging List: With patient Date for Pt to Sign Valuables/Belongings: 04/10/24 03:02:00 ?? Other Discharge Information ? Pulmonary Rehab Status?? Pulmonary Rehab Discharge Status?? Respiratory Rate: 18 br/min ? Common Emergency Awareness Tips IS [...] are strongly encouraged to quit. Please call [facility] at [phone] or [phone] ([phone]) or log in to [email or web address] for referrals to smoking cessation programs. ?? 368 Suicide & Crisis Lifeline is available 30/04 if you or someone you know needs to find a reason to keep living. By calling 167 you'll be connected to a skilled, trained counselor at a crisis center in your area. INPATIENT DISCHARGE INSTRUCTIONS SIGNATURE PAGE LOPEZ, ALONDRA Location:[facility] Registration Date and Time:04/09/2024 13:04 EDT Primary Care Physician: Latrice Laguna NP, Attending Physician: Juana Montoya MD, I ALONDRA MARROQUIN, have received the above patient education materials/instructions and have verbalized understanding. If ambulance or transport services are being used I further acknowledge beinggiven a choice of service. ?? If you need to contact me, please call me at this number: . Patient/Braiding Machine Operator Name: Patient/Braiding Machine Operator Signature: Relationship to Patient: Witness Name/Signature: Date: * Tri Kaplan: PERFORM Event Display: Patient Education Leaflets Authored Date: [id number] Angioedema ?? [id number] Angioedema Angioedema (PE-oxx-hr-eh-JOSE ANGEL-muh) is a sudden appearance of swollen patches (edema) on the skin or mucous membranes. It most often involves the face, lips, mouth, tongue, back of throat, or vocal cords. It may also occur in other places, such as the arms, legs, or genitals. A rash may also appear during the first 4 days of this illness. There are different types of angioedema. Sometimes it's part of an allergic reaction (allergic angioedema). Other times it appears without any other signs of allergic reaction (isolated angioedema). In rare cases, it can run in families (hereditary angioedema). Your symptoms will depend on what type of angioedema you have. Like allergic reactions, angioedema may include: ??? Rash, hives, redness, welts, blisters ??? Itching, burning, stinging, pain ??? Dry, flaky, cracking, or scaly skin ??? Swelling of the face, lips, tongue, or other parts of the body More severe symptoms may include: ??? Trouble swallowing, or feeling like your throat is closing ??? Trouble breathing or wheezing ??? Hoarse voice or trouble speaking ??? Nausea, vomiting, diarrhea, or stomach cramps ??? Feeling faint or lightheaded, rapid heart rate, or low blood pressure This condition can be triggered by exposure to certain things. Medical conditions involving the immune systems and certain infections may cause it. Sometimes the cause may be very clear. But it's often hard to find a cause. Hereditary angioedema can happen after exposure to stress, dental procedures, trauma, infection, or estrogen from contraception, hormone replacement therapy, or . Themost common causes of allergic angioedema include: ??? Foods such as shellfish, peanuts, milk products, gluten, and eggs. Also colorings, flavorings, and additives. ??? Insect bites or stings from bees, mosquitoes, fleas, or ticks ??? Medicines such as ANTONIETTA inhibitors, penicillin medicines, sulfa medicines, aspirin, and ibuprofen ??? Latex, which may be in gloves, clothes, toys, balloons, and some kinds of tape. People who are allergic to latex may have problems with foods such as bananas, avocados, kiwi, papaya, or chestnuts. ??? Heat, cold, orsunlight A common cause of angioedema is a reaction to a class of medicines called ANTONIETTA inhibitors. These areused to treat high blood pressure. ANTONIETTA inhibitors include lotensin, captopril, enalapril, and lisinopril. This condition can happen even after you've been taking the medicine for some time. Tell yourhealthcare provider if you have symptoms and are taking any of these medicines. Angioedema may happen again. It's important to watch for the earliest signs of this condition (see the list below). Contact your provider right away if swelling affects the face, mouth, or throat. Home care Rest quietly today. Don't do vigorous physical activity. Medicines. Your healthcare provider may prescribe medicines for itching, swelling, or pain. Follow the provider???s instructions when taking these medicines. ??? Oral diphenhydramine is an antihistamine available without a prescription. Unless a prescription antihistamine was given, diphenhydraminemay be used to reduce widespread itching. It may make you sleepy. So be careful using it when goingto school, working, or driving. ( Note: Talk to your provider before using antihistamines if you have glaucoma, thyroid disease, heart disease, breathing problems, or high blood pressure. Or if you have trouble peeing due to an enlarged prostate.) Loratadine is an antihistamine that may cause less drowsiness. ??? Don't use diphenhydramine cream on your skin. Some people can have an allergic reaction to this. ??? Calamine lotion or oatmeal baths sometimes help with itching. ??? You may use acetaminophen or ibuprofen for pain, unless another pain medicine was prescribed. Ask your provider what m edicines are safe for you. This is even more important if you have heart, kidney, or liver disease.Or if you're taking blood thinners, are at risk for gastrointestinal ulcers or bleeding, or have high blood pressure. ??? If you were told that your condition was caused by a medicine you are taking,you must stop taking it. Ask your provider for a different one. In the future, advise medical staffthat you're allergic to this medicine. ??? If medicine was prescribed, such as steroids or antihistamines, make sure you understand what the medicine is and how to take it.? General care ??? Make sure you don't scratch areas of the body that had a reaction. This will help prevent infection.? Stay away from air pollution, tobacco, and wood smoke. Also stay away from cold temperatures. These things can make allergy symptoms worse. ??? Try to find out what caused your reaction. Make sure to stay away from the allergen. Future reactions may be worse.? If you have a serious allergy, wear a medical alert bracelet that notes this allergy. ??? If the healthcare provider prescribed an epinephrine auto injector kit, make sure they teach you how and when to use it. Keep it with you at all times.? Tell all care providers about your allergy. Ask them how to use any prescribed medicines. ??? Keep a record of allergies and symptoms, and when they occurred. This will help your provider treat you over time.? Follow-up care Follow up with your healthcare provider, or as advised. You may need to see an deburrer. An deburrer can help find the cause of an allergic reaction. They can also give advice on how to prevent future reactions. ?? Call 911 Call 911 right away if any of these occur: ??? Trouble breathing or swallowing, or wheezing ??? Hoarse voice or trouble speaking, or drooling ??? Chest pain or tightness ??? Confusion, lightheadedness, or dizziness ??? Extreme drowsiness or trouble awakening ??? Fainting or loss of consciousness ??? Rapid heart rate ??? Low blood pressure ??? Vomiting blood, or large amounts of blood in stool ??? Seizure ??? Nausea, vomiting, diarrhea, abdominal pain, or stomach cramps ?? When to get medical advice Call your healthcare provider right away if any of these occur: ??? Symptoms don't go away ??? Symptoms come back ??? Symptoms get worse or new symptoms develop ??? Hives feel uncomfortable ??? Feverof 100.4??F (38??C), or as advised by your provider ?? Last Reviewed Date: 2022 ?? [id number] [employer]. All rights reserved. This information is not intended as a substitute for professional medical care. Always follow your healthcare professional's instructions. ?? Patient Care team information Care Team Personnel Name: Landy Hernández LPN Position: [facility] RN Member Role: Primary Care Nurse Name: Catracho Jimenez RN Position: [facility] RN Member Role: Primary Care Nurse Name: Saba Gilbert Position: [facility] [place] Customer Operations Intern Member Role: Community Health Educator Name: Danika Wilkerson RN Position: [facility] RN Member Role: Primary Care Nurse Name: Latrice Laguna NP Position: [facility] PCO Associate Professional Member Role: PCP Address: Address: [address] [place] [address] [address] [place] [address]- Care Team Related Persons Name: JD MARROQUIN
== END 2024-08-24 01:35 | disposition home or self-care (01) ==
PROVIDERS: Emergency Provider Emergency Medicine; PCP Nurse Practitioner Family
DX: J18.9 Pneumonia, unspecified organism (principal); F03.90 Unspecified dementia, unspecified severity, without behavioral disturbance, psychotic disturbance, mood disturbance, and anxiety; R05.9 Cough, unspecified; R11.0 Nausea; R94.31 Abnormal electrocardiogram [ECG] [EKG]; Z03.818 Encounter for observation for suspected exposure to other biological agents ruled out; Z51.81 Encounter for therapeutic drug level monitoring; Z79.899 Other long term (current) drug therapy
CPT/HCPCS: 0241U; 36415; 71046; 80053; 80307; 81001; 83690; 85007; 85025; 85027; 93005; 99284

== ENCOUNTER → 2024-08-23 22:22 | Outpatient (BNV) | payer MEDICARE, SELFPAY | PROVIDERS: Emergency Provider Emergency Medicine; PCP Nurse Practitioner Family; Visit Provider Internal Medicine Cardiovascular Disease | DX: R53.1 Weakness (principal); I49.1 Atrial premature depolarization; R94.31 Abnormal electrocardiogram [ECG] [EKG] | CPT/HCPCS: 93010 ==

== ENCOUNTER 2024-08-27 20:24 | Emergency (ER) | payer MEDICARE, OTHER, SELFPAY ==
--- NOTE | ~2024-08-27 | CT_ITS ---
EXAMINATION: CT HEAD WITHOUT CONTRAST CLINICAL INFORMATION: Difficulty sitting/standing. Headache. COMPARISON: CT head from 08/30/2023. TECHNIQUE: Contiguous axial imaging was performed from the skull base to vertex without intravenous administration of contrast. This CT examination was performed using dose optimization techniques as appropriate, variously including the following: *Automated exposure control. *Adjustment of mA and/or kV according to patient size (this includes techniques or standardized protocols for targeted exams where dose is matched to indication/reason for exam; i.e. extremities or head). *Use of iterative reconstruction technique. DLP: 655 mGy-cm FINDINGS: There is no evidence of acute intracranial hemorrhage or edematous territorial infarction. [place]-white matter differentiation is preserved. Scattered and partially confluent hypoattenuation in the periventricular and deep white matter are consistent with moderate microangiopathy. The ventricles are normal in morphology and size. No evidence for obstructive hydrocephalus. No abnormal mass effect or midline shift. No extra-axial fluid collections. Calcific atherosclerotic disease of the intracranial internal carotid arteries. No hyperdense vessel sign. No acute soft tissue or osseous abnormalities. Mild mucosal thickening of the paranasal sinuses. The mastoid air cells and middle ear cavities are clear. Moderate degenerative arthropathy of the left temporomandibular joint. CT/CT head/brain wo IV con IMPRESSION: 1. No evidence of acute intracranial hemorrhage or edematous territorial infarction. 2. Moderate underlying microangiopathy and generalized cerebral volume loss. Electronically signed by: Sterling Schilling DO 08/27/2024 11:02 PM [facility]
--- NOTE | ~2024-08-27 | CT_ITS ---
EXAMINATION: CT LUMBAR SPINE WITHOUT CONTRAST CLINICAL INFORMATION: Bilaterally lower leg weakness, numbness R/O disc. COMPARISON: None available. TECHNIQUE: Unenhanced CT of the lumbar spine with multiple coronal and sagittal reformatted images This CT examination was performed using dose optimization techniques as appropriate, variously including the following: *Automated exposure control *Adjustment of mA and/or kV according to patient size (this includes techniques or standardized protocols for targeted exams where dose is matched to indication/reason for exam; i.e. extremities or head) *Use of iterative reconstruction technique DLP; 504 mGy-cm FINDINGS: 5 lumbar type vertebral bodies are identified. Rotatory dextroscoliosis of the lumbar spine is visualized. The visualized sacrum appears intact. Scattered aortoiliac calcific atherosclerotic plaques are noted. No retroperitoneal fluid collections or soft tissue inflammatory changes identified. Within the visualized abdomen and pelvis, partial visualization is made of sigmoid diverticulosis. No free intraperitoneal fluid or gas collections noted. No focal inflammatory changes of visualized sigmoid mesentery and small bowel mesentery. Visualized ribs are intact. No vertebral body compression deformities identified. T12-L1: No gross central or foraminal stenoses noted. L1-L2: Partially visualized mild posterior broad-based disc bulge resulting in at least mild central stenosis. L2-L3: Partially visualized mild posterior broad-based disc bulge resulting in mild central stenosis. L3-L4: Partially visualized moderate posterior broad-based disc-osteophyte complex with left parasagittal and intraforaminal eccentricity resulting in moderate left foraminal stenosis and mild central stenosis. Partial visualization is made of ligamentum flavum hypertrophy which may contribute to central stenosis. L4-L5: Moderate central stenosis. Moderate-marked bilateral foraminal stenoses. Findings are as secondary to broad-based disc-osteophyte complex with bilateral intraforaminal extension. Disc-osteophyte material appears to abut or impinge upon the exiting left and right L4 nerve roots. Findings are most pronounced in association with the right neural foramen. L5-S1: Partially visualized posterior broad-based disc bulge with an overlying focally prominent right intraforaminal disc-osteophyte complex resulting in marked right foraminal stenosis with right L5 nerve root impingement. CT/CT lumbar spine wo IV con IMPRESSION: 1. L5-S1 marked right foraminal stenosis with right L5 nerve root impingement. 2. L4-L5 moderate central stenosis and moderate-marked bilateral foraminal stenoses possible bilateral L4 nerve root impingements. 3. L3-L4 moderate left foraminal stenosis and mild central stenosis. 4. L1-L2 and L2-L3 mild central stenosis. 5. Partially visualized sigmoid diverticulosis. 6. No acute abnormalities identified. Electronically signed by: Lenin Castillo MD 08/28/2024 05:49 AM [facility]
[2024-08-27 20:29] VITALS: BP 187/94; PULSE 75; RESP 16; TEMP 36.8; O2SAT 98; BMI 36.7
--- NOTE | 2024-08-27 20:30 | ED.GENADULT ---
HPI - General Adult General Chief complaint: Weakness Stated complaint: unable to walk states feet are numb Time Seen by Provider: 08/27/24 21:44 Source: patient and family Mode of arrival: ambulatory Limitations: other (Patient was dementia has limited insight as to why she was here, her daughter Shara and her pussibyd-ls-pde gave me the information.) History of Present Illness ED Provider: Dr. Kenny Hanson HPI narrative: 83 year old female with history of dementia, pre diabetes, alcohol dependence, hypertension, depression recently [place] [facility] [place] (08/23/2024-see below) presenting to emergency department for evaluation of bilateral numbness in her lower extremities, difficulty standing and difficulty walking. According to her daughter, Shara, these symptoms started around 15:30 hours resolved but then came back. The patient was having difficulty standing and walking secondary to her numbness. Daughter states that the patient stands up in her knees become wobbley and give out. These symptoms are new and she was never had them before. The patient was here at [facility] on 08/23/2024 diagnosed with right perihilar infiltrate and treated with cefuroxime b.i.d. and azithromycin. According to the family she still has a cough but her appetite is improved and she was eating and drinking well. She had no other symptoms but according to the family , because of her dementia she never complaints. Related Data Home Medications ?Medication ?Instructions ?Recorded ?Confirmed lisinopril 20 mg tablet 20 mg PO DAILY 08/30/23 08/30/23 sertraline 50 mg tablet 50 mg PO DAILY 08/30/23 08/30/23 Previous Rx's ?Medication ?Instructions ?Recorded tramadol 50 mg tablet 50 mg PO Q8H PRN pain #10 tabs 08/31/23 azithromycin 250 mg tablet 250 mg PO DAILY 4 days #4 tabs 08/24/24 benzonatate 100 mg capsule 100 mg PO TID PRN cough #10 caps 08/24/24 cefuroxime axetil 500 mg tablet 500 mg PO BID #3 tabs 08/24/24 Allergies Allergy/AdvReac Type Severity Reaction Status Date / Time lisinopril AdvReac Angioedema Verified 08/27/24 20:32 Review of Systems Review of Systems: Yes all other systems are reviewed and are negative PMFSH Past Medical History Medical History Prediabetes EtOH dependence Cellulitis of hand, left Dog bite of left hand Hypertension Memory impairment Depression Family History Family History Father EtOH dependence Mother CAD (coronary artery disease) Social History Social History Household Members: None Housing: Apartment Do you presently have visiting nurse or other home services: No Alcohol intake: never Patient Tobacco Use Status: Former Tobacco user Substance Use Type: Caffiene Advance Directives: No Advance Directives Information Provided: No Do you have a plan to hurt others: No Plan service: No Current occupational status: retired Physical Exam ED Vital Signs: Vital Signs - 24 hr 08/27/24 20:29 08/27/24 23:45 08/28/24 01:56 Temperature 98.2 F 97.8 F 97.6 F Pulse Rate 75 88 62 Respiratory Rate 16 16 12 Blood Pressure 187/94 H 184/86 H 160/80 H Pulse Oximetry 98 99 95 Oxygen Delivery Method Room Air Room Air Room Air 08/28/24 04:14 08/28/24 06:13 Temperature 97.5 F 97.6 F Pulse Rate 82 75 Respiratory Rate 16 16 Blood Pressure 137/83 171/94 H Pulse Oximetry 97 97 Oxygen Delivery Method Room Air Room Air BMI result Body Mass Index 36.7 Vital signs revealed elevated systolic blood pressures 187/94 and 160/80 otherwise unremarkable Exam: General: Awake, alert in no distress Head: Normocephalic, atraumatic EENT: PERRL, Lids normal, sclera normal, conjunctiva normal, nose normal , ears normal, throat without erythema or exudates Neck: Supple, no adenopathy Lung: breath sounds symmetric, no wheezing, rales or rhonchi Chest: symmetric movement, nontender Heart: regular rate and rhythm, normal S1, S2 no murmurs or rubs Abdomen: soft, non-tender, nondistended, normal bowel sounds Back: no vertebral tenderness, no CVAT Extremities: no deformities, moves all extremities symmetrically Neuro: General: Awake, alert, oriented to person, speech is normal Cranial nerves: Cranial nerves 2-12 intact Strength: Patient was able to hold all of her extremities up against gravity with good strength, the patient can stand but is unsteady and not able to take a step due to weakness Psych: Pleasant, cooperative NIH Stroke Scale Internal: Initial- Upon Arrival Time: 20:31 Level of Consciousness: Alert Level of Consciousness Questions: Answers both questions correctly Level of Consciousness Commands: Performs both tasks correctly Best Gaze: Normal Visual: No visual loss Facial Palsy: Normal Motor Arm (Right): No drift Motor Arm (Left): No drift Motor Leg (Right): No drift Motor Leg (Left): No drift Limb Ataxia: Absent Sensory: Normal Best Language: No aphasia Dysarthia: Normal Extinction and Inattention: No abnormality Score: 0 Course Course Course Narrative: This is a rapid medical exam performed by Cyril Goncalves NP: Additional HPI, ROS, PE not included below will be deferred to primary provider. Patient is an 83 year old female with history of dementia, recently treated for pneumonia, HTN presenting to ED with daughter who reports that this afternoon patient complained that her right foot felt numb. Daughter states she had difficulty sitting on the toilet and standing. NIHSS 0 in triage. HR irregular in triage. Plan: EKG, CT head, labs Medications Administered Discontinued Medications Generic Name Dose Route Start Last Admin Trade Name Freq PRN Reason Stop Dose Admin Haloperidol 5 mg 08/28/24 03:45 08/28/24 04:19 Haloperidol 5 Mg Tablet PO 08/28/24 03:46 5 mg ONCE ONE Administration Lorazepam 0.5 mg 08/28/24 03:45 08/28/24 04:19 Lorazepam 0.5 Mg Tablet PO 08/28/24 03:46 0.5 mg ONCE ONE Administration Medical Decision Making Medical Decision Making MDM Narrative: 83 year old female with history of dementia, pre diabetes, alcohol dependence, hypertension, depression recently [place] [facility] [place] (08/23/2024 -right perihilar infiltrate treated with cefuroxime and azithromycin x5 days) presenting to emergency department for evaluation of bilateral numbness in her lower extremities, difficulty standing and difficulty walking. Her symptoms started yesterday at 15:30 hours and these are new symptoms for this patient. Family states the patient is incontinent of urine and wears depends. Patient was not incontinent of stool. Vital signs revealed elevated blood pressure otherwise unremarkable. Patient was able to hold her lower extremities up against gravity however when she stood up she appeared to be weak and was not able to take a step. The patient did not have any reflexes in her upper lower extremities that I was able to elicit. Differential diagnosis: ?Includes but is not limited to cauda equina syndrome, Guillain-[place], electrolyte abnormalities, anemia Course: 07:00 My independent interpretation patient's laboratory evaluation as follows: CBC was normal. CMP revealed an elevated BUN otherwise unremarkable. Urine was positive for blood but microscopic was negative for infection. Urine tox screen was negative. Ethanol was below detectable limits. COVID-19, influenza and RSV were negative. CT scan of the head did not reveal any acute abnormalities to explain the patient's symptoms. Patient did have moderate underlying microangiopathy and generalized central volume loss. CT scan of the spine without IV contrast did reveal multiple levels of disc disease with particularly concern at L4-L5 where there was moderate central stenosis and moderate to marked bilateral foraminal stenosis possible bilateral L4 nerve root impingement. The patient did have several episodes of incontinence here in the emergency department. Bladder scan at this time he was 380 cc of urine. Given the acute onset of her symptoms and possible central cord compression at L4-L5, concerned that the patient may have acute caudal equina syndrome. I did discuss transfer with the patient's daughter and she agrees to transferring the patient to a facility that has neurosurgical capabilities in the capability to do an emergent MRI. I did discuss the patient's presentation with the [facility] emergency department attending, and she did accept the patient as an ED to ED transfer. Admission/Observation Consideration of admission/observation: Escalation of care including admission/observation considered (Yes) Lab Data MDM Lab Attestation statement: I reviewed the patient's lab results. 08/27/24 20:53 08/27/24 20:53 Labs: Lab Results 08/27/24 08/27/24 Range/Units 20:53 21:41 WBC 7.1 (4.8-10.8) X10*3/uL RBC 4.81 (4.20-5.50) X10*6/uL Hgb 14.3 (12.0-16.0) g/dl Hct 41.6 (37.0-47.0) % MCV 86.5 (80.0-98.0) fL MCH 29.7 (27.0-33.0) pg MCHC 34.4 (31.0-35.0) g/dl RDW 13.1 (11.0-16.0) % Plt Count 298 D (160-400) X10*3/uL MPV 9.6 (9.4-12.3) fL Immature Gran % (Auto) 0.3 (0.0-0.4) % Neut % (Auto) 59.8 (45-73) % Lymph % (Auto) 29.4 (20-40) % Daggett % (Auto) 7.5 (2-11) % Eos % (Auto) 2.3 (0-4) % Baso % (Auto) 0.7 (0-2) % Lymph # (Auto) 2.1 (1.2-4.9) X10*3/uL [place] # (Auto) 0.5 (0.1-1.2) X10*3/uL Eos # (Auto) 0.2 (0.0-0.4) X10*3/uL Baso # (Auto) 0.1 (0.0-0.2) X10*3/uL Abs Immat Gran (auto) 0.02 (0.00-0.03) X10*3/uL Absolute Neuts (auto) 4.2 (2.0-8.3) x10*3/uL Absolute Nucleated RBC 0.000 (0.0-0.012) X10*3/uL Nucleated RBC % (auto) 0.0 (0.0-0.2) /100WBC PT 12.7 H (10.9-12.4) SEC INR 1.1 (0.9-1.1) Sodium 141 (135-145) mmol/L Potassium 3.8 (3.3-5.1) mmol/L Chloride 104 (96-108) mmol/L Carbon Dioxide 25 (22-29) mmol/L Anion Gap 16 (12-20) BUN 17 H (9-16) mg/dL Creatinine 0.75 (0.5-1.4) mg/dL Estim Creat Clear Calc 68.9 Estimated GFR > 60 Random Glucose 110 (60-115) mg/dL Calcium 8.9 (8.4-10.2) mg/dL Magnesium 1.9 (1.6-2.6) mg/dL Total Bilirubin 0.4 (0.0-1.0) mg/dL AST 30 (5-31) U/L ALT 19 (0-31) U/L Alkaline Phosphatase 68 (39-117) U/L Troponin I High Sens 4.5 (<3.5-17.0) ng/L Total Protein 7.8 (6.5-8.0) g/dL Albumin 3.7 (3.5-5.0) g/dL Urine Color Yellow Urine Appearance Clear Urine pH 6.5 (5.0-9.0) Ur Specific [place] 1.010 (1.005-1.025) Urine Protein Negative (Neg-Trace) mg/dL Urine Glucose (UA) Negative (Negative) mg/dL Urine Ketones Negative (Negative) mg/dL Urine Blood Trace H (Negative) Urine Nitrite Negative (Negative) Ur Leukocyte Esterase Negative (Negative) Urine RBC 3-5 H (0-2) /HPF Urine WBC 0-5 (0-5) /HPF Ur Squamous Epith Cells 0-2 (0-2) /HPF Urine Bacteria None Seen (None Seen) Hyaline Casts 0-2 (0-2) /LPF Urine Opiates Screen Not Detected (Not Detect) Ur Buprenorphine Scrn Not Detected (Not Detect) ng/mL Ur Oxycodone Screen Not Detected (Not Detect) ng/mL Urine Methadone Screen Not Detected (Not Detect) ng/mL Urine Fentanyl Screen Not Detected (Not Detect) Ur Barbiturates Screen Not Detected (Not Detect) Ur Phencyclidine Scrn Not Detected (Not Detect) Ur Amphetamines Screen Not Detected (Not Detect) U Benzodiazepines Scrn Not Detected (Not Detect) Urine Cocaine Screen Not Detected (Not Detect) U Marijuana (THC) Screen Not Detected (Not Detect) Ethyl Alcohol < 10 mg/dL Influenza Type A (PCR) NEGATIVE (Negative) Influenza Type B (PCR) NEGATIVE (Negative) RSV RNA Qual (PCR) NEGATIVE (Negative) SARS-CoV-2 RNA (RT-PCR) NEGATIVE (Negative) Independent Interpretation I performed an independent interpretation of an: EKG Interpretation: My independent interpretation of the patient's 12 EKG done at 20:36 hours is as follows: Normal sinus rhythm rate of 73, normal TX interval, QRS duration QTC interval, no ST segment elevation, no ST segment depression, occasional PAC, poor R-wave progression V1 through V3, no significant T-wave abnormalities. Radiology Impression Discussion of test interpretation with radiology: I have reviewed the radiologist's reading. Radiologist Impression: CT head/brain wo IV con IMPRESSION: 1. No evidence of acute intracranial hemorrhage or edematous territorial infarction. 2. Moderate underlying microangiopathy and generalized cerebral volume loss. Electronically signed by: Sterling Schilling DO 08/27/2024 11:02 PM EST RP Dictated By: Valentino Schilling DO CT lumbar spine wo IV con IMPRESSION: 1. L5-S1 marked right foraminal stenosis with right L5 nerve root impingement. 2. L4-L5 moderate central stenosis and moderate-marked bilateral foraminal stenoses possible bilateral L4 nerve root impingements. 3. L3-L4 moderate left foraminal stenosis and mild central stenosis. 4. L1-L2 and L2-L3 mild central stenosis. 5. Partially visualized sigmoid diverticulosis. 6. No acute abnormalities identified. Electronically signed by: Lenin Castillo MD 08/28/2024 05:49 AM EST RP Dictated By: Lenin Castillo MD Independent Historian Clinical information obtained from an independent historian. History obtained from or confirmed by: Other (Daughter, Shara ) Chronic Conditions Patient?s care impacted by: Hypertension Critical Care Time Critical Care Time Critical Care Time: Yes Total Critical Care Time: 45 Attestation: Critical Care: The patient was critically ill with a high probability of imminent or life threatening deterioration. I spent greater than 30 minutes of discontinuous time evaluating the patient,delivering critical care at the bedside, discussing and evaluating pertinent data with consultants. Critical care time does not include time spent performing separately billable procedures or teaching. Total time spent performing critical care was 45 minutes. 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 Trejo Prescriptions: No Action lisinopril 20 mg tablet 20 mg PO DAILY sertraline 50 mg tablet 50 mg PO DAILY tramadol 50 mg tablet 50 mg PO Q8H PRN (Reason: pain) Qty: 10 0RF cefuroxime axetil 500 mg tablet 500 mg PO BID Qty: 3 0RF azithromycin 250 mg tablet 250 mg PO DAILY 4 Days Qty: 4 0RF Rx Instructions: start on day 2 of therapy benzonatate 100 mg capsule 100 mg PO TID PRN (Reason: cough) Qty: 10 0RF Print Language: Greek
--- NOTE | 2024-08-27 20:33 | ECG_ITS ---
Test Reason : chest pain Blood Pressure : / mmHG Vent. Rate : 073 BPM Atrial Rate : 073 BPM P-R Int : 186 ms QRS Dur : 080 ms QT Int : 398 ms P-R-T Axes : -14 017 019 degrees QTc Int : 438 ms Sinus rhythm with Premature atrial complexes in a pattern of bigeminy Low voltage QRS Borderline ECG When compared with ECG of 23-AUG-2024 22:22, No significant change was found Referred By: Elva Goncalves Electronically Signed By:HANG MEJIA MD
[2024-08-27 21:03] LABS: MANUAL DIFF FLAG NO
[2024-08-27 21:04] LABS: Basophils Absolute Auto 0.1 X10*3/uL (0.0-0.2); Basophils Percent Auto 0.7 % (0-2); Eosinophils Absolute Auto 0.2 X10*3/uL (0.0-0.4); Eosinophils Percent Auto 2.3 % (0-4); Hematocrit 41.6 % (37.0-47.0); Hemoglobin 14.3 g/dl (12.0-16.0); Imm Gran Abs Auto 0.02 X10*3/uL (0.00-0.03); Imm Gran Pct Auto 0.3 % (0.0-0.4); Lymphocytes Absolute Auto 2.1 X10*3/uL (1.2-4.9); Lymphocytes Percent Auto 29.4 % (20-40); Mean Corpuscular HGB Conc 34.4 g/dl (31.0-35.0); Mean Corpuscular Hemoglobin 29.7 pg (27.0-33.0); Mean Corpuscular Volume 86.5 fL (80.0-98.0); Mean Platelet Volume 9.6 fL (9.4-12.3); Monocytes Absolute Auto 0.5 X10*3/uL (0.1-1.2); Monocytes Percent Auto 7.5 % (2-11); Neutrophils Absolute Auto 4.2 x10*3/uL (2.0-8.3); Neutrophils Percent Auto 59.8 % (45-73); Platelet Count 298 X10*3/uL (160-400); Red Blood Count 4.81 X10*6/uL (4.20-5.50); Red Cell Distribution Width 13.1 % (11.0-16.0); White Blood Count 7.1 X10*3/uL (4.8-10.8)
[2024-08-27 21:17] LABS: INTERNATIONAL NORM RATIO 1.1 (0.9-1.1); Prothrombin Time 12.7 SEC (10.9-12.4)
[2024-08-27 21:29] LABS: Alanine Aminotransferase 19 U/L (0-31); Albumin Level 3.7 g/dL (3.5-5.0); Alkaline Phosphatase 68 U/L (39-117); Anion Gap 16 (12-20); Aspartate Amino Transferase 30 U/L (5-31); Bilirubin Total 0.4 mg/dL (0.0-1.0); Blood Urea Nitrogen 17 mg/dL (9-16); Calcium 8.9 mg/dL (8.4-10.2); Carbon Dioxide 25 mmol/L (22-29); Chloride 104 mmol/L (96-108); Creatinine Clr Calc Pharmacy 68.9; Estimated Glomerular Filt Rate > 60; Ethanol < 10 mg/dL; Glucose Random 110 mg/dL (60-115); Magnesium 1.9 mg/dL (1.6-2.6); Potassium 3.8 mmol/L (3.3-5.1); Sodium 141 mmol/L (135-145); Total Protein 7.8 g/dL (6.5-8.0)
[2024-08-27 21:37] LABS: Troponin-I High Sensitivity 4.5 ng/L (<3.5-17.0)
[2024-08-27 21:46] LABS: Influenza A PCR NEGATIVE (Negative); Influenza B PCR NEGATIVE (Negative); Resp Syncy Virus RNA Qual PCR NEGATIVE (Negative); SARS COV2 PCR INHOUSE NEGATIVE (Negative)
[2024-08-27 21:49] LABS: Appearance Urine Clear; Color Urine Yellow; Glucose Urine UA Negative (Negative); Leukocyte Esterase Urine Negative (Negative); Nitrite Urine Negative (Negative); PH 6.5 (5.0-9.0); UMIC TRIGGER UACC YES; Urine Blood Trace (Negative); Urine Ketones Negative (Negative); Urine Protein Negative (Neg-Trace)
[2024-08-27 21:52] LABS: Bacteria Urine None Seen (None Seen); Hyaline Casts Urine 0-2 /LPF (0-2); Squamous Epithelial Cell Urine 0-2 /HPF (0-2); WBC Urine 0-5 /HPF (0-5)
[2024-08-27 21:58] LABS: Amphetamine Screen Urine Not Detected (Not Detect); Barbiturates, Urine Not Detected (Not Detect); Benzodiazepines Screen Urine Not Detected (Not Detect); Buprenorphine Scr Not Detected (Not Detect); Cannabinoid Screen Urine Not Detected (Not Detect); Cocaine Screen Urine Not Detected (Not Detect); Fentanyl, urine Not Detected (Not Detect); Methadone Screen, Urine Not Detected (Not Detect); Opiate Screen Urine Not Detected (Not Detect); Oxycodone Screen Urine Not Detected (Not Detect); Phencyclidine Screen Urine Not Detected (Not Detect)
[2024-08-27 23:45] VITALS: BP 184/86; PULSE 88; RESP 16; TEMP 36.6; O2SAT 99
--- NOTE | 2024-08-27 23:50 | MHC.EDTECH ---
0000 rounding done ,vitals taken ,RN Priscila is aware of Patient high blood Pressure ,Patient was given ham sandwich and fluids for snack .
[2024-08-28 01:56] VITALS: BP 160/80; PULSE 62; RESP 12; TEMP 36.4; O2SAT 95
--- NOTE | 2024-08-28 01:59 | PC.NURSE ---
Pt attempting to get out of bed alone, rn bedside before pt got out alone. Brought to bedside commode and back to bed with a 2 person assist. Camera placed bedside for pt safety.
--- NOTE | 2024-08-28 02:00 | MHC.EDTECH ---
Patient was climbing out of bed ,telle sitter camera was in Placed .
--- NOTE | 2024-08-28 03:46 | MHC.EDTECH ---
Patient was a max asst of 2 to bedside commode ,Patient legs were buckling ,RN Priscila aware ,Pure wick in Place ,All safety measure in Place .
[2024-08-28 04:14] VITALS: BP 137/83; PULSE 82; RESP 16; TEMP 36.4; O2SAT 97
[2024-08-28] MEDS: LORazepam 0.5 MG TABLET PO (04:19)
[2024-08-28] MEDS: HaloperidoL 5 MG TABLET PO (04:19)
[2024-08-28 06:13] VITALS: BP 171/94; PULSE 75; RESP 16; TEMP 36.4; O2SAT 97
--- NOTE | 2024-08-28 06:24 | MHC.EDTECH ---
0600 ,rounding done ,vitals taken ,Patient was reposition and boosted up in bed ,Patient was awake all night ,All safety measure in Place .
--- NOTE | 2024-08-28 06:53 | MHC.EDTECH ---
Bladder scan done ,Provider aware of result .
--- NOTE | 2024-08-28 07:02 | PC.NURSE ---
Resumed care of patient at 0700, with discussion with pt is to be ED to ED transfer to [facility] [place] for further eval. IV placement obtained, awaiting for EMS to be booked. PT is a/ox4, denies complaints of pain, bladder scan done at shift change,MD aware, no further interventions at this time
[2024-08-28 07:49] VITALS: BP 171/94; PULSE 75; RESP 16; TEMP 36.4; O2SAT 97
--- OUTSIDE RECORDS SUMMARY | 2024-08-29 14:31 | XMS_ITS | Continuity of Care Document ---
Author Organization [facility] Address [address] [place] [id number]- Care Team Providers Care Earthmoving Plant Operator Name Role Phone Jase LEE, Latrice Champagne Primary Care Physician Encounter [facility] Date(s): 07/13/22 - 07/20/[address] [id number] Attending Physician: Tucker Acevedo MD Referring Physician: Latrice Laguna NP Allergies, Adverse Reactions, Alerts No Known Allergies Immunizations Given and Recorded Vaccine Date Status Refusal Reason tetanus-diphtheria toxoids (Td) 04/15/22 Recorded SARS-CoV-2 (COVID-19) mRNA-1273 vaccine 02/13/21 R ecorded SARS-CoV-2 (COVID-19) mRNA-1273 vaccine 01/16/21 R ecorded pneumococcal 13-valent vaccine 1 07/10/19 Given 1Result Comment: [facility]: [id number] Medications atorvastatin 20 mg oral tablet 1 tablet = 20 mg, By Mouth, Daily at bedtime, # 90 tablet, 4 Refills, Maintenance, 06/01/22 11:51:00 EDT, Tablet, [facility], 170, cm, 06/01/22 11:50:00 EDT, Height, 74, kg, 02/04/22 5:20:00 EDT, Dry Weight Start Date: 06/01/22 Status: Ordered calcium and vitamin D combination 500 mg-200 iu oral tablet 1 tablet, By Mouth, 2 times a day, # 180 tablet, 2 Refills, Maintenance, 07/14/22 11:17:00 EDT, Tablet, [facility], Partial fill upon patient request if the prescription is for a schedule II opioid drug., 1 tablet By Mouth 2 times a day, 17... Start Date: 07/14/22 Status: Ordered hydrochlorothiazide 25 mg oral tablet 25 mg, 1, tablet, By Mouth, Daily, # 90 tablet, Refills 3, Tot. Refills 3, Maintenance, 06/15/22 15:27:00 EDT, Route to Pharmacy Electronically, [facility], Partial fill upon patient request if the prescription is for a schedule II opioid d... Start Date: 06/15/22 Status: Ordered quinapril 20 mg oral tablet 1 tablet = 20 mg, By Mouth, Daily, # 90 tablet, 3 Refills, Maintenance, 06/15/22 15:27:00 EDT, Tablet, [facility], Partial fill upon patient request if the prescription is for a schedule II opioid drug., 170, cm, 06/05/22 14:12:00 EDT, [place]... Start Date: 06/15/22 Status: Ordered sertraline 50 mg oral tablet 1 tablet = 50 mg, By Mouth, Daily, # 90 tablet, 2 Refills, Maintenance, 07/14/22 11:26:00 EDT, Tablet, [facility], Partial fill upon patient request if the prescription is for a schedule II opioid drug., 170, cm, 07/14/22 10:53:00 EDT, Heig... Start Date: 07/14/22 Status: Ordered traZODone 50 mg oral tablet 50 mg, 1, tablet, By Mouth, Daily at bedtime, PRN, # 30 tablet, Refills 3, Tot. Refills 3, Maintenance, Insomnia, 07/14/22 11:08:00 EDT, Route to Pharmacy Electronically, [facility], Partial fill upon [...] Personnel Name: Latrice Laguna NP Address: Address: [address] [place] [id number]
--- OUTSIDE RECORDS SUMMARY | 2024-08-29 14:31 | XMS_ITS | Continuity of Care Document ---
Author Organization [facility] Adult Address [address] [place] [id number]- Care Team Providers Care Job Placement Officer Name Role Phone Jase LEE, Latrice Champagne Primary Care Physician [phone] Encounter [facility] Date(s): 08/18/24 - 08/25/[address] [address]- Encounter Diagnosis HTN (hypertension)(Discharge Diagnosis) - 08/18/24 Cognitive impairment(Discharge Diagnosis) - 08/18/24 Hyperlipidemia(Discharge Diagnosis) - 08/18/24 Impaired fasting glucose(Discharge Diagnosis) - 08/18/24 Major depression(Discharge Diagnosis) - 08/18/24 MDD (major depressive disorder), recurrent episode, mild(Discharge Diagnosis) - 08/18/24 Prediabetes(Discharge Diagnosis) - 08/18/24 Attending Physician: Not on Staff, Attending MD Encounter Type: Office Visit Allergies, Adverse Reactions, Alerts Substance Criticality Severity Reaction Reaction Severity Status lisinopril High criticality Severe Angioedema A ctive Immunizations Given and Recorded Vaccine Date Status Refusal Reason influenza virus vaccine, inactivated 08/18/24 Give n tetanus/diphtheria/pertussis, acel(Tdap) 12/10/23 Recorded tetanus-diphtheria toxoids (Td) 04/15/22 Recorded SARS-CoV-2 (COVID-19) mRNA-1273 vaccine 02/13/21 R ecorded SARS-CoV-2 (COVID-19) mRNA-1273 vaccine 01/16/21 R ecorded pneumococcal 13-valent vaccine 1 07/10/19 Given 1Result Comment: [facility]: [id number] Medications calcium and vitamin D combination 500 mg-200 iu oral tablet 1 tablet, By Mouth, 2 times a day, # 180 tablet, 2 Refills, Maintenance, 07/14/22 11:17:00 AM EDT, Tablet, [id number], Partial fill upon patient request if the prescription is for a schedule II opioid drug., 1 tablet By Mouth 2 times a day, 170, cm, 07/14/22 10:53:00 EDT, Height, 74, kg, 02/04/22 5:20:00 EDT, Dry Weight Start Date: 07/14/22 Status: Ordered Quantity: 180.0 Unit: tablet Repeat number: 3 Cane See Instructions, # 1 each, Maintenance, Cane- Dx Unseady gait, 12/04/22 2:09:00 PM EST, Supply Start Date: 12/04/22 Status: Ordered Quantity: 1.0 Unit: each Repeat number: 1 Indication: Unsteadiness on feet cetirizine 10 mg oral tablet = 10 mg, By Mouth, Daily, # 2 tablet, 0 Refills, Maintenance, 04/10/24 11:58:00 AM EDT, [id number] Partial fill upon patient request if the prescription is for a schedule II opioid drug., 170, cm, 04/10/24 10:44:00 EDT, Height, 77, kg, 04/09/24 19:27:00 EDT, Dry Weight Start Date: 04/10/24 Stop Date: 04/12/24 Status: Ordered Quantity: 2.0 Unit: tablet Repeat number: 1 losartan 25 mg oral tablet 1 tablet = 25 mg, By Mouth, Daily, # 30 tablet, 0 Refills, Maintenance, 08/07/24 9:31:00 AM EDT, Tablet, [facility], Partial fill upon patient request if the prescription is for a scheduleII opioid drug., 170, cm, 04/10/24 18:57:00 EDT, Height, 77, kg, 04/09/24 19:27:00 EDT, Dry Weight Start Date: 08/07/24 Stop Date: 09/06/24 Status: Ordered Quantity: 30.0 Unit: tablet Repeat number: 1 Nitrofurantoin By Mouth, Maintenance, 08/18/24 2:05:00 PM EST Start Date: 08/18/24 Status: Ordered Repeat number: 1 PARoxetine 10 mg oral tablet 10 mg, 1, tablet, By Mouth, Daily, # 90 tablet, Refills 0, Tot. Refills 0, Maintenance, 12/24/23 4:44:00 PM EDT, Route to Pharmacy Electronically, [facility] 1966, Partial fill upon patient request if the prescription is for a schedule II opioid drug., 169, cm, 12/24/23 16:10:00 EDT, Height, 83.3, kg, 12/04/23 21:14:00 EST, Dry Weight Start Date: 12/24/23 Status: Ordered Quantity: 90.0 Unit: tablet Repeat number: 1 Problem List Condition Confirmation Course Effective Dates [...] Clinical Service Informant HTN (hypertension) Discharge Diagnosis 08/18/24 Cognitive impairment Discharge Diagnosis 08/18/24 Hyperlipidemia Discharge Diagnosis 08/18/24 Impaired fasting glucose Discharge Diagnosis 08/18/24 Major depression Discharge Diagnosis 08/18/24 MDD (major depressive disorder), recurrent episode, mild Discharge Diagnosis 08/18/24 Prediabetes Discharge Diagnosis 08/18/24 Vital Signs Most recent to oldest [Reference Range]: 1 2 3 Height 170 cm (08/18/24 2:35 PM) 170 cm (08/18/24 1:55 PM) Weight 81.5 kg (08/18/24 1:55 PM) Oxygen Saturation [94-100 %] 97 % (08/18/24 1:55 PM) Pulse Rate [55-90 bpm] 95 bpm *H* (08/18/24 1:55 PM) Body Mass Index [18.5-24.99 kg/m2] 28.2 kg/m2 *H* (08/18/24 1:55 PM) Blood Pressure [90-138/55-84 mm Hg] 130/80mm Hg (08/18/24 2:35 PM) 138/83mm Hg (08/18/24 2:10 PM) 146/105mm Hg *H* (08/18/24 1:55 PM) Mode of Delivery (Oxygen) Room air (08/18/24 1:55 PM) Blood pressure sites Arm, left (08/18/24 2:35 PM) Arm, left (08/18/24 2:10 PM) Arm, left (08/18/24 1:55 PM) Weight Obtained Via Standing scale (08/18/24 1:55 PM) Social History Social History Type Response Smoking Status Former smoker, quit more than 30 days ago entered on: 12/30/20 Sex Female Sex Representation Female (finding) Note * Rossana Mary: PERFORM Event Display: Patient Education/Instruction Authored Date: [id number] [facility] [address] [address] [place] [address] Name: ALONDRA MARROQUIN : 1940?? Visit: 08/18/2024 13:54?? Ambulatory Visit Instructions ?? Your Care Team Primary Care Provider Latrice Laguna NP? This Visit Provider Latrice Laguna NP Your Diagnosis HTN (hypertension) Cognitive impairment Hyperlipidemia Impaired fasting glucose Major depression MDD (major depressive disorder), recurrent episode, mild Prediabetes Vitals Signs Pulse Rate:??95 bpm??High Height: 170 cm Systolic Blood Pressure: 130 mm Hg Weight: 81.5 kg Diastolic Blood Pressure: 80 mm Hg Body Mass Index:??28.2 kg/m2??High Oxygen Saturation: 97 % Body surface area: 1.96 What to do next Follow-Up Appointments Follow Up with??Latrice Laguna NP When:??12/19/2024 03:50 PM EDT Why: MEDICARE WELLNESS VISIT Where: [address] [facility] 3rd floor [facility] [place] [address]- Future Orders Basic Metabolic Panel - Routine, Once, 08/18/24 14:29:00 EST, Future Order, [facility], Blood?? Hemoglobin A1C (Monitoring) - Routine, Once, 08/18/24 14:29:00 EST, Future Order, [facility], Blood?? Medications The list below reflects the information in our records and provided by you today along with any changes made during this visit. Please continue your medications until treatment is completed or stopped by your provider. If this is different from the information you have or there are other questions,please contact the prescribing provider. What How Much When Why Instructions Unchanged Calcium And Vitamin D Combination (calcium and vitamin D combination 500 mg-200 iu oral tablet) 1 tab(s) Oral Twice a day Unchanged Cetirizine (cetirizine 10 mg oral tablet) 10 Milligram Oral Daily Duration: 2 Days Unchanged Durable Medical Equipment (Cane) See instructions Unsteady gait Cane- Dx Unseady gait ?? Unchanged Losartan (losartan 25 mg oral tablet) 1 tab(s) Oral Daily Duration: 30 Days Unchanged Nitrofurantoin Oral Unchanged Paroxetine (PARoxetine 10 mg oral tablet) 1 tab(s) Oral Daily Test Performed Below is a partial list of the tests performed during your Visit. You may have had other tests and procedures not included in this list. Please discuss all test results with your provider. Basic Metabolic Panel?-- Results Pending -- Hemoglobin A1C (Monitoring)?-- Results Pending -- Medications and Immunizations Administered Immunizations Given During Visit Given Vaccine Date influenza virus vaccine, inactivated 08/18/2024 Medications Given During Visit Medication ?? Dose ?? Route ?? Last Dose Times ?? influenza virus vaccine, inactivated?0.50 mL?? Intramuscular?? 18-AUG-2024 14:07:00.00?? Allergies (NKA means No Known Allergies) lisinopril??(Angioedema) Common Emergency Awareness Tips IS IT A [...] are strongly encouraged to quit. Please call [facility] Invisible Connect Link at [phone] or [phone] ([phone]) or log in to [email or web address] for referrals to smoking cessation programs. ?? The National Suicide Prevention Hotline is available 30/04 if you or someone you know needs to find a reason to keep living. By calling 5-619-280-Atonometrics (3270) you'll be connected to a skilled, trained counselor at a crisis center in your area. [facility] Invisible Connect Portal You can view and manage your care through the patient portal or by using a health care mohit of your choosing. [employer]ops is a website that allows you to securely view your medical information including your hospital discharge summary, office visit summaries, medications and follow-up visits. You can also request appointments, renew medications, and request access to your medical information using a health care mohit of your choosing, or just ask a question. You can enroll at [email or web address] or register during your next office visit. [facility], in keeping with [facility] guidance, no longer requires face masks [...] medical provider or home test kit. ?? Disclaimer: The information provided is of a general nature and is intended to be used in conjunction with the recommendations and advice of your health care practitioner. Every effort has been made to ensure that the information provided is accurate and complete at the time it is provided to you however, as your needs change, or, as new information becomes available, different or additional instructions may be required. ?? If you have questions, please consult with your primary care provider or pharmacist, as appropriate. This information is not intended to serve as substitution for assessment and evaluation by a qualified health care provider. If you do not have a primary care provider, you may find a [facility] provider by calling [facility] at [phone]. Patient Care team information Care Team Personnel Name: Landy Hernández LPN Position: [facility] RN Member Role: Primary Care Nurse Name: Catracho Jimenez RN Position: S RN Member Role: Primary Care Nurse Name: Saba Gilbert Position: [facility] [place] Sales Analyst Member Role: Refrigeration Insulator Name: Danika Wilkerson RN Position: [facility] RN Member Role: Primary Care Nurse Name: Latrice Laguna NP Position: [facility] PCO Associate Professional Member Role: PCP Address: [address] [place] [address] Telecom: Care Team Related Persons Name: JD MARROQUIN Insurance Providers Guarantor name: ALONDRA LOPEZ Health Plan Information #: 1 Payer: MEDICARE PART B OUTPT Member Number: [id number] Policy Number: NA Group Number: NA Health Plan Information #: 2 Payer: MEDICARE PART B OUTPT Member Number: [id number] Policy Number: NA Group Number: NA
--- OUTSIDE RECORDS SUMMARY | 2024-08-29 14:31 | XMS_ITS | Continuity of Care Document ---
Author Organization [facility] Adult Address [address] [place] [address]- Care Team Providers Care Digester Hand Name Role Phone Jase PRESSURISED CONTAINER FILLER, Latrice Champagne Primary Care Physician [id number] - 10/10/23 [facility] [address] [place] [address]- Attending Physician: Not on Staff, Attending MD Allergies, Adverse Reactions, Alerts No Known Allergies Immunizations Given and Recorded Vaccine Date Status Refusal Reason tetanus-diphtheria toxoids (Td) 04/15/22 Recorded SARS-CoV-2 (COVID-19) mRNA-1273 vaccine 02/13/21 R ecorded SARS-CoV-2 (COVID-19) mRNA-1273 vaccine 01/16/21 R ecorded pneumococcal 13-valent vaccine 1 07/10/19 Given 1Result Comment: [facility]: [id number] Medications atorvastatin 20 mg oral tablet 1 tablet = 20 mg, By Mouth, Daily at bedtime, # 90 tablet, 4 Refills, Maintenance, 06/01/22 11:51:00 EDT, Tablet, [facility], 170, cm, 06/01/22 11:50:00 EDT, Height, 74, kg, 02/04/22 5:20:00 EDT, Dry Weight Start Date: 06/01/22 Status: Ordered calcium and vitamin D combination 500 mg-200 iu oral tablet 1 tablet, By Mouth, 2 times a day, # 180 tablet, 2 Refills, Maintenance, 07/14/22 11:17:00 EDT, Tablet, [facility], Partial fill upon patient request [...] 12/04/22 14:07:00 EST, Route to Pharmacy Electronically, [facility], Partial fill upon patient request if the prescription is for a schedule II opioid d... Start Date: 12/04/22 Status: Ordered lisinopril 20 mg oral tablet 1, tablet, By Mouth, Daily, # 90 tablet, Refills 0, Tot. Refills 0, Maintenance, 07/04/23 8:18:00 EDT, Route to Pharmacy Electronically, [facility], 170, cm, 12/04/22 14:06:00 EST, Height,74, kg, 02/04/22 5:20:00 EDT, Dry Weight Start Date: 07/04/23 Status: Ordered sertraline 50 mg oral tablet 1 tablet = 50 mg, By Mouth, Daily, # 90 tablet, 2 Refills, Maintenance, 07/14/22 11:26:00 EDT, Tablet, [facility], Partial fill upon [...] Associate Professional Member Role: PCP Address: Address: [address] [place] [address] 3rd [place] [address]- Care Team Related Persons Name: JD MARROQUIN Address: home [address] [place] [address]
--- OUTSIDE RECORDS SUMMARY | 2024-08-29 14:31 | XMS_ITS | Continuity of Care Document ---
Author Organization [facility] Adult Address [address] [place] [address]- Care Team Providers Care Work Station Support Specialist Name Role Phone Jase LEE, Latrice Champagne Primary Care Physician [id number] Date[facility] 06/15/22 - 07/15/[address] [address]- Allergies, Adverse Reactions, Alerts No Known Allergies Immunizations Given and Recorded Vaccine Date Status Refusal Reason tetanus-diphtheria toxoids (Td) 04/15/22 Recorded SARS-CoV-2 (COVID-19) mRNA-1273 vaccine 02/13/21 R ecorded SARS-CoV-2 (COVID-19) mRNA-1273 vaccine 01/16/21 R ecorded pneumococcal 13-valent vaccine 1 07/10/19 Given 1Result Comment: [facility]: [id number] Medications atorvastatin 20 mg oral tablet 1 tablet = 20 mg, By Mouth, Daily at bedtime, # 90 tablet, 4 Refills, Maintenance, 06/01/22 11:51:00 EDT, Tablet, [facility], 170, cm, 06/01/22 11:50:00 EDT, Height, 74, kg, 02/04/22 5:20:00 EDT, Dry Weight Start Date: 06/01/22 Status: Ordered calcium and vitamin D combination 500 mg-200 iu oral tablet 1 tablet, By Mouth, 2 times a day, # 180 tablet, 2 Refills, Maintenance, 07/14/22 11:17:00 EDT, Tablet, [facility], Partial fill upon patient request if the prescription is for a schedule II opioid drug., 1 tablet By Mouth 2 times a day, 17... Start Date: 07/14/22 Status: Ordered hydrochlorothiazide 25 mg oral tablet 25 mg, 1, tablet, By Mouth, Daily, # 90 tablet, Refills 3, Tot. Refills 3, Maintenance, 06/15/22 15:27:00 EDT, Route to Pharmacy Electronically, [facility], Partial fill upon patient request if the prescription is for a schedule II opioid d... Start Date: 06/15/22 Status: Ordered quinapril 20 mg oral tablet 1 tablet = 20 mg, By Mouth, Daily, # 90 tablet, 3 Refills, Maintenance, 06/15/22 15:27:00 EDT, Tablet, [facility], Partial fill upon patient request if the prescription is for a schedule II opioid drug., 170, cm, 06/05/22 14:12:00 EDT, Heig... Start Date: 06/15/22 Status: Ordered sertraline 50 mg oral tablet 1 tablet = 50 mg, By Mouth, Daily, # 90 tablet, 2 Refills, Maintenance, 07/14/22 11:26:00 EDT, Tablet, [facility], Partial fill upon patient request if the prescription is for a schedule II opioid drug., 170, cm, 07/14/22 10:53:00 EDT, Heig... Start Date: 07/14/22 Status: Ordered traZODone 50 mg oral tablet 50 mg, 1, tablet, By Mouth, Daily at bedtime, PRN, # 30 tablet, Refills 3, Tot. Refills 3, Maintenance, Insomnia, 07/14/22 11:08:00 EDT, Route to Pharmacy Electronically, [facility], Partial fill upon patient [...] Personnel Name: Latrice Laguna NP Address: Address: [address] [place] [id number]
== END 2024-08-28 07:50 | disposition short-term general hospital (02) ==
PROVIDERS: Registered Nurse Emergency; Emergency Provider Emergency Medicine Emergency Medical Services; PCP Nurse Practitioner Family
DX: R20.0 Anesthesia of skin (principal); R53.1 Weakness; M51.26 Other intervertebral disc displacement, lumbar region; R29.700 NIHSS score 0; Z03.818 Encounter for observation for suspected exposure to other biological agents ruled out; R05.9 Cough, unspecified; I10 Essential (primary) hypertension; Z87.891 Personal history of nicotine dependence; Z79.899 Other long term (current) drug therapy
CPT/HCPCS: 0241U; 36415; 70450; 72131; 80053; 80307; 81001; 83735; 84484; 85025; 85610; 93005; 99285

== ENCOUNTER → 2024-08-27 20:33 | Outpatient (BNV) | payer MEDICARE, SELFPAY | PROVIDERS: Emergency Provider Emergency Medicine Emergency Medical Services; PCP Nurse Practitioner Family; Visit Provider Internal Medicine Cardiovascular Disease | DX: R07.9 Chest pain, unspecified (principal); R94.31 Abnormal electrocardiogram [ECG] [EKG] | CPT/HCPCS: 93010 ==